=== PATIENT | female | born 1950 | race Caucasian/White ===

== ENCOUNTER 2023-11-30 05:39 | Inpatient (IN) | payer OTHER, SELFPAY ==
[2023-11-30] VITALS (13 sets, daily range): BP systolic 123–149; BP diastolic 63–84; BMI 38.7; BMI 38.1
[2023-11-30 01:56] LABS: COVID-19 Antigen Negative (Negative)
[2023-11-30] MEDS: TYLENOL 1000 MG PO (03:05)
[2023-11-30] MEDS: DUONEB 3 ML INH ×6 (03:05→19:33)
[2023-11-30] MEDS: NSS 1000 IV ×2 (03:06→07:58)
[2023-11-30 03:28] LABS: % Basophils 0.4 % (0-2); % Eosinophils 1.1 % (0-6); % Immature Granulocytes 0.6 % (0-0.5); % Lymphocytes 8.3 % (20.5-51.1); % Monocytes 5.1 % (1.7-9.3); % Neutrophils 84.5 % (42.2-75.2); Absolute Basophils 0.1 10^3/uL (0-0.2); Absolute Eosinophils 0.2 10^3/uL (0-0.7); Absolute Immature Granulocytes 0.1 10^3/uL (0-0.05); Absolute Lymphocytes 1.4 10^3/uL (1.2-3.4); Absolute Monocytes 0.8 10^3/uL (0.1-0.6); Absolute Neutrophils 13.7 10^3/uL (1.4-6.5); Hematocrit 31.2 % (37.0-47.0); Hemoglobin 10.4 g/dL (12.0-16.0); Mean Corp Hgb Conc. 33.3 g/dL (33.0-37.0); Mean Corpuscular Volume 83.9 fL (81.0-99.0); Mean Platelet Volume 9.9 fL (7.4-10.4); Nucleated Red Blood Cells % 0 %; Platelet Count 316 10^3/uL (130-400); Red Blood Cell Count 3.72 10^6/uL (4.20-5.40); Red Cell Dist. Width 13.4 % (11.5-14.5); White Blood Cell Count 16.2 10^3/uL (4.8-10.8)
[2023-11-30 03:36] LABS: Lactic Acid 0.8 mmol/L (0.7-2.0)
--- NOTE | 2023-11-30 03:41 | ED.GENMED ---
History of Present Illness
General
Chief Complaint: Breathing Problem
Source: patient
Exam Limitations: none
Time Seen by Provider: 11/30/23 02:48
Nursing documentation reviewed up to this point in time: agreed with
Travel History
Have you had any contact with someone who has COVID-19?: No
Do you have any symptoms of coronavirus? Fever > 100 degrees, chills, cough, shortness of breath, sore throat, loss of taste or smell, muscle aches, or headache?: No
History of Present Illness
History of Present Illness:
This is a 73-year-old woman who has history of asthma/chronic bronchitis. She follows with Dr. Hastings with last routine visit 1 week ago.
She does admit to somewhat mild chronic cough after suffering pneumonia and then COVID-19 URI July 2023.
More recently however over the past 2 days she complains of increased cough, nasal congestion, wheezing that has progressed over the past 2 days accompanied with low-grade fever, Tmax of 100 �F. Cough has been productive of clear phlegm but now
after arrival to the ED she has noticed some scant blood tingeing to her sputum.
She did use her nebulizer twice today with mild but temporary improvement in cough and shortness of breath but was noted to have a low pulse ox of 89% at home prompting ED visit.
No recent travel nor close contacts with similar symptoms.
No recent antibiotic use.
She takes no anticoagulants.
Past History
Past History
ED Past Medical History: Fibromyalgia, HTN and Other (Chronic back pains)
ED Past Surgical History: Gynecological, Orthopedic (Knee surgery) and Other (Kidney stones knee surgery.)
Social History
Tobacco: 2nd hand smoke exposure
Alcohol: None
Drug: None
Personal:
Living: with family (mom)
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
Phy Exam
Physical Exam
Physical Exam:
GENERAL: 73-year-old woman appears her stated age, awake and alert, appears in mild distress, mild resting tachypnea. Nasal cannula oxygen is in place. Room air pulse ox 89 to 90%. Blood-tinged pale yellow sputum noted on tissue at bedside.
EYE: anicteric
NECK: Supple, nontender, no meningismus, no significant adenopathy. No JVD.
ENT: posterior pharynx is clear, oral mucosa is minimally dry. TM clear b/l, nares patent.
CARDIAC: Regular rate and rhythm. no murmur.
LUNGS: Mild resting tachypnea, moderately decreased breath sounds throughout with scattered inspiratory/expiratory wheezing with coarse rhonchi left mid lung field.
ABDOMEN: Soft, nondistended, without focal tenderness, normoactive BS.
NEUROLOGICAL: Alert and oriented x3, no focal neuro deficits.
SKIN: Warm and dry, normal color, skin intact. No rash.
MUSCULOSKELETAL: No C/C/E. peripheral pulses are full and equal b/l. No palpable tenderness.
PSYCH: Normal and appropriate interaction.
Scores
Heart Failure Risk
Heart Failure Risk Score: Not Applicable
Course
Orders/Labs/Results
Orders:
Orders
11/30/23 01:33
COVID-19 Antigen Urgent
Source: Nasal Swab
Influenza A+B Rapid Molecular Urgent
SHAINA Source: Nasal Swab
Specimen Description:
11/30/23 02:56
Ipratropium/Albuterol Sulfate [Duoneb] 3 ml INH R NOW STA
CR Chest - 2 Views Urgent
Comment:
Reason For Exam: cough, fever,, hemoptysis
11/30/23 02:57
0.9% Sodium Chloride 1000 ml [Nss] 1,000 ml IV BOLUS
Acetaminophen [Tylenol] 1,000 mg PO NOW STA
11/30/23 03:04
Complete Blood Count/With Diff Urgent
Comprehensive Metabolic Panel Urgent
Lactic Acid Urgent
Blood Culture Q30M
SHAINA Source: Blood/Venous
Specimen Description:
11/30/23 03:22
Blood Culture Q30M
SHAINA Source: Blood/Venous
Specimen Description:
11/30/23 03:30
Sputum Culture [Respiratory Culture/Gram Stain] Urgent
SHAINA Source: Sputum
Specimen Description:
Date Specimen was Collected: 11/30/23
Time Specimen was Collected: 03:25
11/30/23 03:52
CefTRIAXone [Rocephin] 1,000 mg IV NOW STA
11/30/23 03:53
Azithromycin [Zithromax] 500 mg PO NOW STA
11/30/23 04:01
Dexamethasone Sod Phosphate [Decadron] 10 mg IV NOW STA
11/30/23 04:07
Sterile Water [Sterile Water For Injection] 10 ml .ROUTE .[facility]
11/30/23 04:34
Admit/Transfer Patient As Directed
Co-Sign Provider:
Level of Care: Inpatient admission
Assign to:: Telemetry
Physician / Group: Ada Dunn
Diagnosis: hypoxic resp insufficiency; pneumonia
Reason for Telemetry: Chest Pain syndromes
Date to Stop Telemetry: 12/02/23
Time to Stop Telemetry: 11:00
Reason for Hospitalization: hypoxic resp insufficiency; pneumonia
Expected length of stay greater than two midnights?: Yes
ELOS- Estimated Length of Stay in days: 3
I certify the patient meets the requirements for IP care: Yes
11/30/23 04:35
Code Status As Directed
Resuscitation Status: Full Code
11/30/23 05:43
Acapella [Rx Pep / Acapela] [RESP] Routine
11/30/23 05:50
0.9% Sodium Chloride 1000 ml [Nss] 1,000 ml IV 80 mls/hr
Acetaminophen [Tylenol] 650 mg PO Q4HPRN PRN
Ipratropium/Albuterol Sulfate [Duoneb] 3 ml INH R Q4HPRN PRN
11/30/23 05:50
Activity As Directed
Activity Level: As Tolerated
Intake/ Output As Directed
Frequency: Per unit guidelines
Vital Signs As Directed
Frequency: Per unit guidelines
Copd Education [RESP] Routine
DX Deep Vein Thrombosis Video Routine
11/30/23 Breakfast
Cholesterol Lowering
Cholesterol Lowering: Sodium, 2 Gram
11/30/23 08:00
Atorvastatin [Lipitor] 10 mg PO DAILY
Cholecalciferol (Vitamin D3) [VITAMIN D3 (cholecalciferol)] 10 mcg PO DAILY
Guaifenesin [Mucinex] 600 mg PO Q12
Ipratropium/Albuterol Sulfate [Duoneb] 3 ml INH R QID
Montelukast Sodium [Singulair] 10 mg PO DAILY
Multivitamin [Theragran] 1 tablet PO DAILY
Pantoprazole [Protonix] 40 mg PO DAILY
Sertraline HCl [Zoloft] 50 mg PO DAILY
rscwgrgfvrs-rqejccvwq-zdcwocko [Trelegy Ellipta] 1 inh INH R DAILY
11/30/23 16:00
Dexamethasone Sod Phosphate [Decadron] 4 mg IV Q8H
11/30/23 18:00
Enoxaparin Sodium [Lovenox] 40 mg SC QPM
12/01/23 04:00
CefTRIAXone [Rocephin] 1,000 mg IV Q24H
12/01/23 08:00
Azithromycin [Zithromax] 500 mg PO DAILY
12/02/23 11:00
DC Protocol for Telemetry ONCE
Abnormal Lab Results
11/30/23
03:04
WBC 16.2 H 10^3/uL
(4.8-10.8)
RBC 3.72 L 10^6/uL
(4.20-5.40)
Hgb 10.4 L g/dL
(12.0-16.0)
Hct 31.2 L %
(37.0-47.0)
Abs Immat Gran (auto) 0.1 H 10^3/uL
(0-0.05)
Absolute Neuts (auto) 13.7 H 10^3/uL
(1.4-6.5)
Absolute Monos (auto) 0.8 H 10^3/uL
(0.1-0.6)
Immature Gran % 0.6 H %
(0-0.5)
Neutrophils % 84.5 H %
(42.2-75.2)
Lymphocytes % 8.3 L %
(20.5-51.1)
Glucose 128 H mg/dl
(70-99)
Total Protein 5.8 L g/dl
(6.3-8.2)
Albumin 3.2 L g/dl
(3.5-5.0)
11/30/23 03:04
11/30/23 03:04
Vital Signs
Initial and Last Documented VS:
Initial Vital Signs
Temp Pulse Resp BP Pulse Ox
100.4 F H 103 26 149/83 90
11/30/23 00:59 11/30/23 00:59 11/30/23 00:59 11/30/23 00:59 11/30/23 00:59
Last Documented Vital Signs
Temp Pulse Resp BP Pulse Ox
98.4 F 77 26 133/66 92
11/30/23 06:39 11/30/23 05:45 11/30/23 05:45 11/30/23 05:20 11/30/23 05:45
MDM/Problems Addressed
Differential Diagnosis Includes:
Concern for pneumonia, exacerbation of asthma.
No prior history of cardiomyopathy nor CAD and as patient is febrile, CHF is unlikely.
Similarly, no prior history of thromboembolism thus PE is unlikely as well.
Physical exam concerning for pneumonia with moderate rhonchi left mid lung moreira.
Will give DuoNeb nebulizer, initiate IV fluids and check chest x-ray as well as laboratory studies.
Will give Tylenol for fever.
COVID antigen and influenza testing are negative.
She is noted to have scantly blood-tinged sputum in the tissue at bedside. She has been given a specimen cup for sputum sample and if obtained we will send for respiratory culture.
Chronic conditions affecting care: Asthma
Acute Exacerbation and/or Progression of Chronic Illness: Asthma
*Radiology
Radiology exam reviewed: preliminary read by ED provider (Chest x-ray shows patchy infiltrate left midlung field)
*Pulse Oximetry
Patient hypoxic: yes
*Crochet Beader Interpretation
Rate: normal
Interpretation: normal
Rhythm: sinus
*Critical Care Note
Total Time (30-74mins, 75-104mins- exclusive of procedures): Not Applicable
Update Note
Update Note:
Chest x-ray shows patchy infiltrate left midlung field consistent with community-acquired pneumonia.
Will initiate Rocephin and Zithromax and add Decadron for exacerbation of asthma/wheezing.
Due to acute hypoxia, hemoptysis patient will require acute hospitalization.
Will admit to hospitalist service.
ED Attending Note
-
Portions of this chart may have been created with voice recognition software.� Occasional wrong word or��sound alike� substitutions may have occurred due to the inherent limitations of voice recognition software.
Discharge Plan
Departure
Patient Disposition: Admit
Date of Disposition: 11/30/23
Time of Disposition: 03:53
Admit to: Med/Surg
Admit to doctor: Shaun
Presentation/result/management discussed w/ accepting MD/DO: Hospitalist
Condition: Fair
Discharge Problem:
Community acquired pneumonia, Acute exacerbation of COPD with asthma, Acute hypoxemic respiratory failure
Interventions
Interventions:
*Risk Screen - Suicide Last Done: 11/30/23 01:58
*General Assessment Last Done: 11/30/23 01:58
*Neglect/Abuse Screening Last Done: 11/30/23 01:58
*ED COVID-19 Vaccine History Last Done: 11/30/23 01:58
ED- Cardiac Assessment Last Done: 11/30/23 01:58
ED- Pulmonary Assessment Last Done: 11/30/23 01:58
[2023-11-30 03:48] LABS: ALT (SGPT) 16 U/L (0-35); AST (SGOT) 21 U/L (14-36); Albumin 3.2 g/dl (3.5-5.0); Alkaline Phosphatase 82 U/L (38-126); Blood Urea Nitrogen 15 mg/dl (7-17); Calcium 9.3 mg/dl (8.4-10.2); Carbon Dioxide 29 mmol/L (22-30); Chloride 100 mmol/L (98-107); Estimated Creatinine Clearance 92 ml/min; Glucose 128 mg/dl (70-99); Potassium 3.5 mmol/L (3.5-5.1); Sodium 137 mmol/L (135-145); Total Bilirubin 0.8 mg/dl (0.2-1.3); Total Protein 5.8 g/dl (6.3-8.2); eGFR > 60.00
--- NOTE | 2023-11-30 04:11 | HPS.HSE ---
Family Physician
-
Family Physician: ALTAGRACIA Cope
Chief Complaint
-
cough and fever
History of Present Illness
Ms. Fide Becerra is a 73 yo woman with hx hx asthma, fibromyalgai, HTN, chronic cough post covid 08/07 presents to the ER with increased cough, congestion and wheezing. She measured her pulse ox at 89% at home.
She states symptoms started 2 days ago, she woke up wheezing and short of breath, + chest tightness. She has had low grade fevers, temp measuring between 100-101. + cough and noticed blood tinged sputum today. She just saw her md psychiatry,
Macario, last week and was feeling well. no abdominal pain. + nausea. mild LE swelling she noticed today.
Nebulizers at home and here not providing signficant relief.
Medical History
Past Medical History
Past Medical History: Reports Other (asthma, fibromyalgia, HTN, chronic cough post covid 08/07)
Past Surgical History: Reports Other (Gynecological, Orthopedic (Knee surgery) and Other (Kidney stones knee surgery.))
Social History
Tobacco: Other (second hand smoke exposure )
Alcohol: None
Family History
Family History: Not pertinent
Allergies / Home Medications
Allergies reflects when Allergies were last updated in [employer].
Home Medications with original date entered in [employer]
Allergy/Medication List:
Allergies
Allergy/AdvReac Type Severity Reaction Status Date / Time
Penicillins Allergy Hives Verified 11/30/23 00:58
Sulfa (Sulfonamide Allergy Swelling Verified 11/30/23 00:58
Antibiotics)
gatinol Allergy Unknown Uncoded 11/30/23 00:58
Home Medications
multivitamin (Xdn-Jvcccp-Dxbhi tablet) 1 ea PO DAILY 09/20/11
cholecalciferol (vitamin D3) 10 mcg (400 unit) tablet (Vitamin D3) 1,000 units PO DAILY 06/09/18
magnesium oxide 500 mg capsule 500 mg PO .EOD 06/09/18
albuterol sulfate 90 mcg/actuation aerosol inhaler (Albuterol Sulfate HFA) 18 gm inhalation Q4 ##1 06/10/18
diphenhydramine HCl 25 mg capsule (Banophen) 25 mg PO Q4HPRN PRN rash, itching #10 caps 06/10/18
Arnuity Ellipta 1 puff inhalation DAILY AT 0700 11/30/23
atorvastatin 10 mg tablet 10 mg PO DAILY 11/30/23
fluticasone fur. 100 mcg-umeclid 62.5 mcg-vilant 25 mcg inhalat.powder (Trelegy Ellipta) 1 inh inhalation DAILY 11/30/23
montelukast 10 mg tablet 10 mg PO DAILY 11/30/23
pantoprazole 40 mg tablet,delayed release 40 mg PO DAILY 11/30/23
sertraline 50 mg tablet 50 mg PO DAILY 11/30/23
Review of Systems
-
History Source: Patient
A 12 point ROS was completed and negative except as noted: Yes
Physical Exam
Vital Signs
Vital Signs
Temp Pulse Resp BP Pulse Ox
99.6 F 103 26 123/81 96
11/30/23 03:30 11/30/23 00:59 11/30/23 00:59 11/30/23 03:00 11/30/23 03:30
Physical Exam
General: Other (appears tachypneic, + frequent cough )
HEENT: PERRLA
Respiratory: Wheezes
Cardiac: S1/S2 and Regular Rhythm
GI: Soft and Non Tender
Musculoskeletal: Other (trace pedal edema )
Skin: Warm and Dry; No Rash
Neuro: AO x 3
Psych: Anxious
Laboratory Results
-
11/30/23 03:04
11/30/23 03:04
Laboratory Results
Lactic Acid 0.8 mmol/L (0.7-2.0) 11/30/23 03:04
Total Bilirubin 0.8 mg/dl (0.2-1.3) 11/30/23 03:04
AST 21 U/L (14-36) 11/30/23 03:04
ALT 16 U/L (0-35) 11/30/23 03:04
Alkaline Phosphatase 82 U/L (38-126) 11/30/23 03:04
Data Reviewed
-
Diagnostic Radiology: Report Reviewed by me
Lab Data: Labs Reviewed by me
Impression/Plan
-
Ms. Fide Becerra is a 73 yo woman with hx asthma, fibromyalgia, HTN, chronic cough post covid 08/07 presents to the ER with increased cough, congestion and wheezing. She measured her pulse ox at 89% at home.
Triage VS: T 100.4, P 103, RR 26, BP 141/76, SpO2 91%
LAB: WBC 16.2, Hg 10.4, PLT 316, Na 137, K+ 3.5, BUN 15, Cr 0.6, Glucose 128
covid negative
flu negative
CXR with [facility] PNA
MAR: Cef/Azithro
Sepsis 2/2 Pneumonia
Acute asthma exacerbation
Acute hypoxic respiratory insufficiency
-admit to tele
-continue IV Ceftriaxone/Azithro
-F/U sputum culture
-IV Decadron
-standing duonebs
-mucinex, acapella
-consider pulm consult if no improvement 24/48 hours (patient sees Dr. Sorto)
-continue RESIDENTIAL PLUMBER montelukast, inhalers
GERD
-RESIDENTIAL PLUMBER PPI
Depression
-RESIDENTIAL PLUMBER Zoloft
DVT PPx lovenox subQ
FULL CODE
[2023-11-30] MEDS: ZITHROMAX 500 MG PO (04:14)
[2023-11-30] MEDS: ROCEPHIN 1000 MG IV (04:14)
[2023-11-30] MEDS: DECADRON 10 MG IV (04:14)
[2023-11-30 09:00] LABS: Procalcitonin 4.27 ng/ml (0.0-0.25)
--- NOTE | 2023-11-30 09:00 | EDRN ---
Patient taken to room 333-1 on stretcher on O2 4LNC by pharmacy technician with NSS infusing.
[2023-11-30] MEDS: THERAGRAN 1 TABLET PO (10:13)
[2023-11-30] MEDS: LIPITOR 10 MG PO (10:13)
[2023-11-30] MEDS: VITAMIN D3 (cholecalciferol) 10 MCG PO (10:13)
[2023-11-30] MEDS: MUCINEX 600 MG PO ×2 (10:13→20:52)
[2023-11-30] MEDS: PROTONIX 40 MG PO (10:13)
[2023-11-30] MEDS: SINGULAIR 10 MG PO (10:14)
[2023-11-30] MEDS: ZOLOFT 50 MG PO (10:23)
[2023-11-30] MEDS: FLOVENT 44 MCG INHALER 2 PUFF INH ×2 (13:17→19:33)
--- NOTE | 2023-11-30 13:55 | W.PN.HOSP.TC ---
Today's Communication/Plan
-
abx
incentive shavon
steroids
Assessment / Plan
Assessment / Plan
Physical Exam
General: Other (appears tachypneic, + frequent cough )
HEENT: PERRLA
Respiratory: Wheezes
Cardiac: S1/S2 and Regular Rhythm
GI: Soft and Non Tender
Musculoskeletal: Other (trace pedal edema )
Skin: Warm and Dry; No Rash
Neuro: AO x 3
Psych: Anxious
Sepsis 2/2 Pneumonia
Acute asthma exacerbation
Acute hypoxic respiratory insufficiency
-continue IV Ceftriaxone/Azithro
-F/U sputum culture
-IV Decadron
-standing duonebs
-mucinex, acapella
-consider pulm consult if no improvement 24/48 hours (patient sees Dr. Sorto)
-continue TECHNICAL SYSTEM ANALYST montelukast, inhalers
GERD
-TECHNICAL SYSTEM ANALYST PPI
Depression
-TECHNICAL SYSTEM ANALYST Zoloft
DVT PPx lovenox subQ
FULL CODE
Anticipated Discharge: 24 - 48 hours
Subjective/Interval History
-
Date of Service: November 30, 2023
No acute events
Objective Data
-
Labs:
Laboratory Results
11/30/23 11/30/23
03:04 06:00
WBC 16.2 H Cancelled
Hgb 10.4 L Cancelled
Hct 31.2 L Cancelled
Plt Count 316 Cancelled
Sodium 137 Cancelled
Potassium 3.5 Cancelled
Chloride 100 Cancelled
Carbon Dioxide 29 Cancelled
BUN 15 Cancelled
Creatinine 0.6 Cancelled
Glucose 128 H Cancelled
Calcium 9.3 Cancelled
Total Bilirubin 0.8
AST 21
ALT 16
Alkaline Phosphatase 82
Vital Signs:
Vital Signs
Temp Pulse Resp BP Pulse Ox
98.2 F 82 16 148/81 95
11/30/23 09:14 11/30/23 13:22 11/30/23 13:22 11/30/23 09:14 11/30/23 13:22
I&O
11/29/23 11/30/23 12/01/23
06:59 06:59 06:59
Intake Total 260 / 260
Balance 260 / 260
Review of Systems
-
History Source: Patient
All other systems: Not reviewed unless documented
Data Reviewed
-
Diagnostic Radiology: Image personally visualized and interpreted and Report Reviewed by me
Labs: Labs Reviewed by me
[2023-11-30] MEDS: TESSALON PERLES 200 MG PO (14:12)
--- NOTE | 2023-11-30 15:38 | CM ---
Met with patient and son at the bedside; initial assessment completed
Pharmacy verified: [facility], [address], [place]
Patient reports she is currently living with her son, Kaushik; 3 story home including basement; 2 steps to enter; 12 step between floors; powder room on the 1st floor and in the finished basement where patient sleeps; 2nd floor bathroom has a shower
stall
PLOF: patient reports she is independent with ADLs, ambulation, and stairs; drives but has not driven recently
DME: none
SNF/Rehab/Home Care utilization history: none
Transportation: one of her sons will provide ride home
Plan: discharge to home; no needs anticipated
[2023-11-30] MEDS: LOVENOX SC (18:26)
[2023-11-30] MEDS: DECADRON 4 MG IV (19:33)
[2023-12-01] MEDS: TESSALON PERLES 200 MG PO ×3 (00:09→20:55)
[2023-12-01] MEDS: DUONEB 3 ML INH ×5 (00:23→20:35)
[2023-12-01] MEDS: DECADRON 4 MG IV ×3 (02:47→16:58)
[2023-12-01 02:49] VITALS: BP 138/67
[2023-12-01] MEDS: STERILE WATER FOR INJECTION 10 ML IV (04:12)
[2023-12-01] MEDS: ROCEPHIN 1000 MG IV (04:12)
[2023-12-01 06:15] LABS: % Basophils 0.1 % (0-2); % Immature Granulocytes 0.6 % (0-0.5); % Lymphocytes 5.2 % (20.5-51.1); % Monocytes 2.2 % (1.7-9.3); % Neutrophils 91.9 % (42.2-75.2); Absolute Immature Granulocytes 0.1 10^3/uL (0-0.05); Absolute Lymphocytes 0.6 10^3/uL (1.2-3.4); Absolute Monocytes 0.3 10^3/uL (0.1-0.6); Absolute Neutrophils 11.4 10^3/uL (1.4-6.5); Hemoglobin 10.5 g/dL (12.0-16.0); Mean Corp Hgb Conc. 32.8 g/dL (33.0-37.0); Mean Corpuscular Hgb 28.1 pg (27.0-31.0); Mean Corpuscular Volume 85.6 fL (81.0-99.0); Mean Platelet Volume 10.1 fL (7.4-10.4); Nucleated Red Blood Cells % 0 %; Platelet Count 354 10^3/uL (130-400); Red Blood Cell Count 3.74 10^6/uL (4.20-5.40); Red Cell Dist. Width 13.5 % (11.5-14.5); White Blood Cell Count 12.4 10^3/uL (4.8-10.8)
[2023-12-01 06:37] LABS: Blood Urea Nitrogen 16 mg/dl (7-17); Calcium 9.7 mg/dl (8.4-10.2); Carbon Dioxide 26 mmol/L (22-30); Chloride 100 mmol/L (98-107); Estimated Creatinine Clearance 91 ml/min; Glucose 146 mg/dl (70-99); Potassium 4.3 mmol/L (3.5-5.1); Sodium 136 mmol/L (135-145); eGFR > 60.00
[2023-12-01 07:00] VITALS: BP 142/79
[2023-12-01] MEDS: FLOVENT 44 MCG INHALER 2 PUFF INH ×2 (07:40→20:36)
[2023-12-01] MEDS: THERAGRAN 1 TABLET PO (08:16)
[2023-12-01] MEDS: ZOLOFT 50 MG PO (08:16)
[2023-12-01] MEDS: PROTONIX 40 MG PO (08:16)
[2023-12-01] MEDS: VITAMIN D3 (cholecalciferol) 10 MCG PO (08:16)
[2023-12-01] MEDS: ZITHROMAX 500 MG PO (08:16)
[2023-12-01] MEDS: SINGULAIR 10 MG PO (08:16)
[2023-12-01] MEDS: MUCINEX 600 MG PO ×2 (08:16→20:55)
[2023-12-01] MEDS: LIPITOR 10 MG PO (08:16)
[2023-12-01] MEDS: TYLENOL 650 MG PO ×3 (10:19→21:51)
[2023-12-01 11:00] VITALS: BP 131/70
--- NOTE | 2023-12-01 12:57 | W.PN.HOSP.TC ---
Today's Communication/Plan
-
wean o2
abx
steroids
acapella, incentive shavon, early ambulation
Assessment / Plan
Assessment / Plan
Physical Exam
General: Other (mild expiratory wheezing)
HEENT: PERRLA
Respiratory: Wheezes
Cardiac: S1/S2 and Regular Rhythm
GI: Soft and Non Tender
Musculoskeletal: Other (trace pedal edema )
Skin: Warm and Dry; No Rash
Neuro: AO x 3
Psych: Anxious
Sepsis 2/2 Pneumonia
Acute asthma exacerbation
Acute hypoxic respiratory failure
-improving
-continue IV Ceftriaxone/Azithro
-F/U sputum culture
-IV Decadron
-standing duonebs
-mucinex, acapella, incentive shavon
-continue COMMAND AND CONTROL OFFICER montelukast, inhalers
GERD
-COMMAND AND CONTROL OFFICER PPI
Depression
-COMMAND AND CONTROL OFFICER Zoloft
DVT PPx lovenox subQ
FULL CODE
Anticipated Discharge: > 48 hours
Subjective/Interval History
-
Date of Service: December 01, 2023
Patient feels better compared to yesterday
Objective Data
-
Labs:
Laboratory Results
12/01/23
05:36
WBC 12.4 H
Hgb 10.5 L
Hct 32.0 L
Plt Count 354
Sodium 136
Potassium 4.3
Chloride 100
Carbon Dioxide 26
BUN 16
Creatinine 0.6
Glucose 146 H
Calcium 9.7
Vital Signs:
Vital Signs
Temp Pulse Resp BP Pulse Ox
97.9 F 74 16 131/70 93
12/01/23 11:00 12/01/23 11:50 12/01/23 11:50 12/01/23 11:00 12/01/23 11:50
I&O
11/30/23 12/01/23 12/02/23
06:59 06:59 06:59
Intake Total 2339
Balance 2339
Review of Systems
-
History Source: Patient
All other systems: Not reviewed unless documented
Data Reviewed
-
Diagnostic Radiology: Image personally visualized and interpreted and Report Reviewed by me
Labs: Labs Reviewed by me
[2023-12-01 15:00] VITALS: BP 138/80
--- NOTE | 2023-12-01 15:43 | CM ---
Chart reviewed
Weaning O2, IV steroids and on antibiotics
PT pending
CM following for needs
Plan - Home to previous setting
[2023-12-01] MEDS: LOVENOX 40 MG SC (17:01)
[2023-12-01 19:10] VITALS: BP 132/70
[2023-12-01 23:20] VITALS: BP 134/71
[2023-12-02] MEDS: DECADRON 4 MG IV ×4 (01:08→23:44)
[2023-12-02 03:04] VITALS: BP 147/85
[2023-12-02] MEDS: ROCEPHIN 1000 MG IV (04:52)
[2023-12-02] MEDS: STERILE WATER FOR INJECTION 10 ML IV (04:52)
[2023-12-02 07:43] VITALS: BP 147/80
[2023-12-02] MEDS: ZITHROMAX 500 MG PO (07:46)
[2023-12-02] MEDS: SINGULAIR 10 MG PO (07:47)
[2023-12-02] MEDS: PROTONIX 40 MG PO (07:47)
[2023-12-02] MEDS: MUCINEX 600 MG PO ×2 (07:47→19:21)
[2023-12-02] MEDS: LIPITOR 10 MG PO (07:47)
[2023-12-02] MEDS: VITAMIN D3 (cholecalciferol) 10 MCG PO (07:47)
[2023-12-02] MEDS: THERAGRAN 1 TABLET PO (07:47)
[2023-12-02] MEDS: ZOLOFT 50 MG PO (07:47)
[2023-12-02 08:24] LABS: Hematocrit 31.6 % (37.0-47.0); Hemoglobin 10.2 g/dL (12.0-16.0); Mean Corp Hgb Conc. 32.3 g/dL (33.0-37.0); Mean Corpuscular Hgb 27.6 pg (27.0-31.0); Mean Corpuscular Volume 85.4 fL (81.0-99.0); Platelet Count 401 10^3/uL (130-400); Red Cell Dist. Width 13.6 % (11.5-14.5); White Blood Cell Count 11.3 10^3/uL (4.8-10.8)
[2023-12-02 08:34] LABS: Blood Urea Nitrogen 26 mg/dl (7-17); Calcium 9.2 mg/dl (8.4-10.2); Carbon Dioxide 26 mmol/L (22-30); Chloride 101 mmol/L (98-107); Estimated Creatinine Clearance 78 ml/min; Glucose 126 mg/dl (70-99); Potassium 4.6 mmol/L (3.5-5.1); Sodium 134 mmol/L (135-145); eGFR > 60.00
[2023-12-02] MEDS: FLOVENT 44 MCG INHALER 2 PUFF INH ×2 (08:39→19:58)
[2023-12-02] MEDS: DUONEB 3 ML INH ×4 (08:39→19:58)
[2023-12-02 11:35] VITALS: BP 136/74
[2023-12-02 11:57] VITALS: BP 148/73
[2023-12-02] MEDS: TESSALON PERLES 200 MG PO ×2 (13:44→19:21)
[2023-12-02] MEDS: TYLENOL 650 MG PO ×2 (13:44→19:21)
--- NOTE | 2023-12-02 13:49 | W.PN.HOSP.TC ---
Today's Communication/Plan
-
wean o2
abx
steroids
acapella, incentive shavon, early ambulation
Assessment / Plan
Assessment / Plan
Physical Exam
General: Other (mild expiratory wheezing)
HEENT: PERRLA
Respiratory: Wheezes
Cardiac: S1/S2 and Regular Rhythm
GI: Soft and Non Tender
Musculoskeletal: Other (trace pedal edema )
Skin: Warm and Dry; No Rash
Neuro: AO x 3
Psych: Anxious
Sepsis 2/2 Pneumonia
Acute asthma exacerbation
Acute hypoxic respiratory failure
-improving
-continue IV Ceftriaxone/Azithro
-F/U sputum culture
-IV Decadron, anticipate starting to wean tomorrow
-standing duonebs
-mucinex, acapella, incentive shavon
-continue PATIENT RESOURCE SPECIALIST montelukast, inhalers
Hyponatremia
� Mild
� Continue to monitor
GERD
-PATIENT RESOURCE SPECIALIST PPI
Depression
-PATIENT RESOURCE SPECIALIST Zoloft
DVT PPx lovenox subQ
FULL CODE
Anticipated Discharge: > 48 hours
Subjective/Interval History
-
Date of Service: December 02, 2023
Symptomatically improving
Objective Data
-
Labs:
Laboratory Results
12/02/23
07:12
WBC 11.3 H
Hgb 10.2 L
Hct 31.6 L
Plt Count 401 H
Sodium 134 L
Potassium 4.6
Chloride 101
Carbon Dioxide 26
BUN 26 H
Creatinine 0.7
Glucose 126 H
Calcium 9.2
Vital Signs:
Vital Signs
Temp Pulse Resp BP Pulse Ox
97.4 F 72 18 148/73 92
12/02/23 11:57 12/02/23 12:04 12/02/23 12:04 12/02/23 11:57 12/02/23 12:04
I&O
12/01/23 12/02/23 12/03/23
06:59 06:59 06:59
Intake Total 2340 / 2340 1000 / 1000
Balance 2340 / 2340 1000 / 1000
Review of Systems
-
History Source: Patient
All other systems: Not reviewed unless documented
Data Reviewed
-
Diagnostic Radiology: Image personally visualized and interpreted and Report Reviewed by me
Labs: Labs Reviewed by me
[2023-12-02 15:45] VITALS: BP 125/74
[2023-12-02] MEDS: LOVENOX 40 MG SC (17:53)
[2023-12-02 23:35] VITALS: BP 136/74
[2023-12-03 00:05] VITALS: BP 136/74
[2023-12-03] MEDS: DUONEB 3 ML INH ×5 (00:46→19:44)
[2023-12-03] MEDS: ROBITUSSIN DM PO (02:03)
[2023-12-03] MEDS: MELATONIN 5 MG PO (02:04)
[2023-12-03] MEDS: ROBITUSSIN DM 10 ML PO (02:29)
[2023-12-03] MEDS: ROCEPHIN 1000 MG IV (04:06)
[2023-12-03] MEDS: STERILE WATER FOR INJECTION 10 ML IV (04:07)
[2023-12-03] MEDS: PROTONIX 40 MG PO (07:42)
[2023-12-03] MEDS: VITAMIN D3 (cholecalciferol) 10 MCG PO (07:42)
[2023-12-03] MEDS: ZOLOFT 50 MG PO (07:42)
[2023-12-03] MEDS: LIPITOR 10 MG PO (07:42)
[2023-12-03] MEDS: SINGULAIR 10 MG PO (07:42)
[2023-12-03] MEDS: THERAGRAN 1 TABLET PO (07:42)
[2023-12-03] MEDS: ZITHROMAX 500 MG PO (07:43)
[2023-12-03] MEDS: MUCINEX 600 MG PO ×2 (07:43→20:42)
[2023-12-03] MEDS: DECADRON 4 MG IV ×2 (07:43→20:42)
[2023-12-03 07:46] LABS: Hematocrit 33.5 % (37.0-47.0); Hemoglobin 10.9 g/dL (12.0-16.0); Mean Corp Hgb Conc. 32.5 g/dL (33.0-37.0); Mean Corpuscular Hgb 27.6 pg (27.0-31.0); Mean Corpuscular Volume 84.8 fL (81.0-99.0); Mean Platelet Volume 9.6 fL (7.4-10.4); Platelet Count 420 10^3/uL (130-400); Red Blood Cell Count 3.95 10^6/uL (4.20-5.40); Red Cell Dist. Width 13.3 % (11.5-14.5); White Blood Cell Count 9.6 10^3/uL (4.8-10.8)
[2023-12-03 07:49] VITALS: BP 132/69
[2023-12-03 08:00] LABS: Blood Urea Nitrogen 23 mg/dl (7-17); Calcium 9.7 mg/dl (8.4-10.2); Carbon Dioxide 27 mmol/L (22-30); Chloride 100 mmol/L (98-107); Estimated Creatinine Clearance 78 ml/min; Glucose 122 mg/dl (70-99); Phosphorus 5.2 mg/dl (2.5-4.5); Potassium 4.6 mmol/L (3.5-5.1); Sodium 137 mmol/L (135-145); eGFR > 60.00
[2023-12-03] MEDS: FLOVENT 44 MCG INHALER 2 PUFF INH ×2 (08:08→19:45)
--- NOTE | 2023-12-03 13:07 | W.PN.HOSP.TC ---
Today's Communication/Plan
-
cont abx
wean decadron to 4mg q12h
wean o2
Assessment / Plan
Assessment / Plan
Physical Exam
General: Other (mild expiratory wheezing)
HEENT: PERRLA
Respiratory: Wheezes
Cardiac: S1/S2 and Regular Rhythm
GI: Soft and Non Tender
Musculoskeletal: Other (trace pedal edema )
Skin: Warm and Dry; No Rash
Neuro: AO x 3
Psych: Anxious
Sepsis 2/2 Pneumonia
Acute asthma exacerbation
Acute hypoxic respiratory failure
-improving
-continue IV Ceftriaxone/Azithro - can cont azithro x 5 days; ceftriaxone and po abx transition for 7-10 days as slowly recovering
-F/U sputum culture
-IV Decadron, wean to 4mg q12h
-standing duonebs
-mucinex, acapella, incentive shavon
-continue MUCKER COFFERDAM montelukast, inhalers
Hyponatremia
� Mild
� Continue to monitor
-resolved
GERD
-MUCKER COFFERDAM PPI
Depression
-MUCKER COFFERDAM Zoloft
DVT PPx lovenox subQ
FULL CODE
Anticipated Discharge: > 48 hours
Subjective/Interval History
-
Date of Service: December 03, 2023
no acute events overnight
Objective Data
-
Labs:
Laboratory Results
12/03/23
06:33
WBC 9.6
Hgb 10.9 L
Hct 33.5 L
Plt Count 420 H
Sodium 137
Potassium 4.6
Chloride 100
Carbon Dioxide 27
BUN 23 H
Creatinine 0.7
Glucose 122 H
Calcium 9.7
Vital Signs:
Vital Signs
Temp Pulse Resp BP Pulse Ox
98.8 F 93 18 132/69 93
12/03/23 07:49 12/03/23 11:35 12/03/23 11:35 12/03/23 07:49 12/03/23 11:35
I&O
12/02/23 12/03/23 12/04/23
06:59 06:59 06:59
Intake Total 1000 / 1000 920 / 920
Balance 1000 / 1000 920 / 920
Review of Systems
-
History Source: Patient
All other systems: Not reviewed unless documented
Data Reviewed
-
Diagnostic Radiology: Image personally visualized and interpreted and Report Reviewed by me
Labs: Labs Reviewed by me
[2023-12-03] MEDS: TYLENOL 650 MG PO (14:08)
[2023-12-03 15:14] VITALS: BP 112/61
[2023-12-03] MEDS: LOVENOX 40 MG SC (17:12)
[2023-12-03] MEDS: TESSALON PERLES 200 MG PO (17:15)
[2023-12-03] MEDS: ROBITUSSIN DM 5 ML PO (20:51)
[2023-12-03 23:21] VITALS: BP 134/71
[2023-12-04] MEDS: ROCEPHIN 1000 MG IV (03:27)
[2023-12-04] MEDS: STERILE WATER FOR INJECTION 10 ML IV (03:27)
[2023-12-04] MEDS: ROBITUSSIN DM 5 ML PO ×3 (03:34→23:18)
[2023-12-04 06:11] LABS: Hematocrit 34.3 % (37.0-47.0); Hemoglobin 11.1 g/dL (12.0-16.0); Mean Corp Hgb Conc. 32.4 g/dL (33.0-37.0); Mean Corpuscular Volume 86.4 fL (81.0-99.0); Mean Platelet Volume 9.5 fL (7.4-10.4); Platelet Count 416 10^3/uL (130-400); Red Blood Cell Count 3.97 10^6/uL (4.20-5.40); Red Cell Dist. Width 13.2 % (11.5-14.5); White Blood Cell Count 12.5 10^3/uL (4.8-10.8)
[2023-12-04 06:38] LABS: Blood Urea Nitrogen 25 mg/dl (7-17); Calcium 9.5 mg/dl (8.4-10.2); Carbon Dioxide 28 mmol/L (22-30); Chloride 97 mmol/L (98-107); Estimated Creatinine Clearance 68 ml/min; Glucose 116 mg/dl (70-99); Potassium 4.8 mmol/L (3.5-5.1); Sodium 134 mmol/L (135-145); eGFR > 60.00
[2023-12-04 07:50] VITALS: BP 126/87
[2023-12-04] MEDS: ZITHROMAX 500 MG PO (08:09)
[2023-12-04] MEDS: PROTONIX 40 MG PO (08:09)
[2023-12-04] MEDS: THERAGRAN 1 TABLET PO (08:09)
[2023-12-04] MEDS: ZOLOFT 50 MG PO (08:09)
[2023-12-04] MEDS: VITAMIN D3 (cholecalciferol) 10 MCG PO (08:09)
[2023-12-04] MEDS: LIPITOR 10 MG PO (08:09)
[2023-12-04] MEDS: SINGULAIR 10 MG PO (08:09)
[2023-12-04] MEDS: MUCINEX 600 MG PO ×2 (08:09→20:08)
[2023-12-04] MEDS: DECADRON 4 MG IV ×2 (08:10→20:09)
[2023-12-04] MEDS: FLUSH (NSS) 2 FLUSH IV (08:12)
[2023-12-04] MEDS: DUONEB 3 ML INH ×4 (08:12→19:37)
[2023-12-04] MEDS: FLOVENT 44 MCG INHALER 2 PUFF INH ×2 (08:12→19:37)
--- NOTE | 2023-12-04 10:42 | W.PN.HOSP.TC ---
Today's Communication/Plan
-
see A/P
Assessment / Plan
Assessment / Plan
A/P:
# Sepsis POA 2/2 CAP
# Acute asthma exacerbation
# Acute hypoxic respiratory insufficiency
Cont 2L NC, wean as tolerated, pt not on home O2
COVID/Flu negative
continue IV Ceftriaxone/Azithro
sputum culture with usual respiratory evelio
Cont IV Decadron, weaned to 4mg q12h
Cont standing duonebs, mucinex, acapella, incentive shavon
continue BURN CENTER NURSE montelukast, inhalers
Start vest therapy
Informed pt to repeat CXR in 4 weeks with pulm (pt follows with Dr Sorto)
Clinically improving
# Hyponatremia, Mild
# GERD
BURN CENTER NURSE PPI
# Depression
BURN CENTER NURSE Zoloft
DVT PPx Lovenox subQ
FULL CODE
Anticipated Discharge: 24 - 48 hours
Subjective/Interval History
-
Date of Service: December 04, 2023
Objective Data
-
Labs:
Laboratory Results
12/04/23
05:27
WBC 12.5 H
Hgb 11.1 L
Hct 34.3 L
Plt Count 416 H
Sodium 134 L
Potassium 4.8
Chloride 97 L
Carbon Dioxide 28
BUN 25 H
Creatinine 0.8
Glucose 116 H
Calcium 9.5
Vital Signs:
Vital Signs
Temp Pulse Resp BP Pulse Ox
36.6 C 60 16 126/87 95
12/04/23 07:50 12/04/23 08:17 12/04/23 08:17 12/04/23 07:50 12/04/23 08:17
I&O
12/03/23 12/04/23 12/05/23
06:59 06:59 06:59
Intake Total 920 / 920 1380 / 1380
Balance 920 / 920 1380 / 1380
Review of Systems
-
Respiratory: Reports Trouble Breathing (improved)
Physical Exam
-
General: Well Developed, Well Nourished, Comfortable, Respiratory Distress and Conversant
HEENT: Normocephalic, Atraumatic, Nose Appears Normal, Ears Appear Normal and Oxygen (2L NC)
Respiratory: Clear to Auscultation, Rhonchi and Non Labored Respirations; Negative Accessory Resp Muscle Use
Cardiac: Regular Rhythm and S1/S2
GI: Soft, Nontender, Nondistended and Normal Bowel Sounds
Skin: Warm and Dry
Neuro: Awake, Alert, Oriented and AO x 3
Psych: Calm and Intact Judgement/Insight
Data Reviewed
-
Diagnostic Radiology: Image personally visualized and interpreted and Report Reviewed by me
Labs: Labs Reviewed by me
[2023-12-04] MEDS: TYLENOL 650 MG PO ×2 (10:44→20:08)
[2023-12-04 16:25] VITALS: BP 133/75
--- NOTE | 2023-12-04 16:45 | CM ---
Chart reviewed
Continuing abx; Weaning Decadron
Weaning O2
PT recs pend
CM will continue for d/c needs
[2023-12-04] MEDS: LOVENOX 40 MG SC (17:35)
[2023-12-04] MEDS: TESSALON PERLES 200 MG PO (20:08)
[2023-12-04 23:40] VITALS: BP 124/67
[2023-12-05] MEDS: ROCEPHIN 1000 MG IV (03:17)
[2023-12-05] MEDS: STERILE WATER FOR INJECTION 10 ML IV (03:18)
[2023-12-05 05:27] LABS: Hematocrit 34.4 % (37.0-47.0); Hemoglobin 11.5 g/dL (12.0-16.0); Mean Corp Hgb Conc. 33.4 g/dL (33.0-37.0); Mean Corpuscular Hgb 28.5 pg (27.0-31.0); Mean Corpuscular Volume 85.1 fL (81.0-99.0); Mean Platelet Volume 9.2 fL (7.4-10.4); Platelet Count 407 10^3/uL (130-400); Red Blood Cell Count 4.04 10^6/uL (4.20-5.40); Red Cell Dist. Width 13.2 % (11.5-14.5); White Blood Cell Count 12.7 10^3/uL (4.8-10.8)
[2023-12-05 05:49] LABS: Blood Urea Nitrogen 24 mg/dl (7-17); Calcium 9.3 mg/dl (8.4-10.2); Carbon Dioxide 28 mmol/L (22-30); Chloride 100 mmol/L (98-107); Estimated Creatinine Clearance 78 ml/min; Glucose 115 mg/dl (70-99); Magnesium 2.1 mg/dl (1.6-2.3); Potassium 4.6 mmol/L (3.5-5.1); Sodium 132 mmol/L (135-145); eGFR > 60.00
[2023-12-05 07:15] VITALS: BP 143/80
[2023-12-05] MEDS: FLOVENT 44 MCG INHALER 2 PUFF INH ×2 (07:24→19:57)
[2023-12-05] MEDS: DUONEB 3 ML INH ×4 (07:24→19:57)
[2023-12-05] MEDS: VITAMIN D3 (cholecalciferol) 10 MCG PO (08:31)
[2023-12-05] MEDS: MUCINEX 600 MG PO ×2 (08:31→19:35)
[2023-12-05] MEDS: ZOLOFT 50 MG PO (08:31)
[2023-12-05] MEDS: LIPITOR 10 MG PO (08:31)
[2023-12-05] MEDS: ZITHROMAX 500 MG PO (08:31)
[2023-12-05] MEDS: THERAGRAN 1 TABLET PO (08:31)
[2023-12-05] MEDS: PROTONIX 40 MG PO (08:31)
[2023-12-05] MEDS: SINGULAIR 10 MG PO (08:31)
[2023-12-05] MEDS: DECADRON 4 MG IV ×2 (08:31→19:35)
--- NOTE | 2023-12-05 10:57 | W.PN.HOSP.TC ---
Today's Communication/Plan
-
see A/P
Assessment / Plan
Assessment / Plan
A/P:
# Sepsis POA 2/2 CAP
# Acute asthma exacerbation
# Acute hypoxic respiratory insufficiency
Cont 2L NC, wean as tolerated, pt not on home O2
COVID/Flu negative
continue IV Ceftriaxone/Azithro
Check MRSA screen
sputum culture with usual respiratory evelio
Cont IV Decadron, weaned to 4mg q12h
Cont standing duonebs, Mucinex, acapella, incentive shavon
continue LAUNDROMAT MANAGER montelukast, inhalers
Started vest therapy
Informed pt to repeat CXR in 4 weeks with pulm (pt follows with Dr Macario zapata)
Clinically improving
# Hyponatremia, Mild
# GERD
LAUNDROMAT MANAGER PPI
# Depression
LAUNDROMAT MANAGER Zoloft
DVT PPx Lovenox subQ
FULL CODE
Anticipated Discharge: 24 - 48 hours
Subjective/Interval History
-
Date of Service: December 05, 2023
Objective Data
-
Labs:
Laboratory Results
12/05/23
05:12
WBC 12.7 H
Hgb 11.5 L
Hct 34.4 L
Plt Count 407 H
Sodium 132 L
Potassium 4.6
Chloride 100
Carbon Dioxide 28
BUN 24 H
Creatinine 0.7
Glucose 115 H
Calcium 9.3
Vital Signs:
Vital Signs
Temp Pulse Resp BP Pulse Ox
36.8 C 86 16 143/80 96
12/05/23 07:15 12/05/23 07:32 12/05/23 07:32 12/05/23 07:15 12/05/23 07:32
I&O
12/04/23 12/05/23 12/06/23
06:59 06:59 06:59
Intake Total 1380 / 1380 2039
Balance 1380 / 1380 2039
Review of Systems
-
Respiratory: Reports Cough and Trouble Breathing (improved)
Physical Exam
-
General: Well Developed, Well Nourished, Comfortable, Respiratory Distress and Conversant
HEENT: Normocephalic, Atraumatic, Nose Appears Normal, Ears Appear Normal and Oxygen (2L NC)
Respiratory: Clear to Auscultation, Wheezes (mild), Rhonchi and Non Labored Respirations; Negative Accessory Resp Muscle Use
Cardiac: Regular Rhythm and S1/S2
GI: Soft, Nontender, Nondistended and Normal Bowel Sounds
Skin: Warm and Dry
Neuro: Awake, Alert, Oriented and AO x 3
Psych: Calm and Intact Judgement/Insight
Data Reviewed
-
Diagnostic Radiology: Image personally visualized and interpreted and Report Reviewed by me
Labs: Labs Reviewed by me
--- NOTE | 2023-12-05 13:43 | CM ---
Patient seen at bedside. Patient plan for discharge is home with VN, pending PT/OT assessment. CM will continue to follow for discharge planning needs.
Plan; home with VN vs SNF pending PT/OT assessment
[2023-12-05 15:10] VITALS: BP 115/66
[2023-12-05 15:49] VITALS: BP 151/80; BP 157/81; PULSE 83; O2SAT 93
[2023-12-05] MEDS: LOVENOX 40 MG SC (17:18)
[2023-12-05 23:56] VITALS: BP 125/66
[2023-12-06] MEDS: STERILE WATER FOR INJECTION 10 ML IV (04:00)
[2023-12-06] MEDS: ROCEPHIN 1000 MG IV (04:00)
--- NOTE | 2023-12-06 04:11 | DOWNTIME ---
There was a [employer] Chief Librarian [employer] Department Downtime on 12/06/2023 from 0111 to 12/06/2023 at 0405. Downtime documentation of patient's care, including medication administrations, has been reconciled in the electronic record per guidelines. Refer to the
patient's paper chart under the miscellaneous tab to see printed paper medication records and downtime forms.
[2023-12-06 05:50] LABS: Hematocrit 34.8 % (37.0-47.0); Hemoglobin 11.4 g/dL (12.0-16.0); Mean Corp Hgb Conc. 32.8 g/dL (33.0-37.0); Mean Corpuscular Hgb 27.7 pg (27.0-31.0); Mean Corpuscular Volume 84.5 fL (81.0-99.0); Mean Platelet Volume 9.3 fL (7.4-10.4); Platelet Count 453 10^3/uL (130-400); Red Blood Cell Count 4.12 10^6/uL (4.20-5.40); Red Cell Dist. Width 13.3 % (11.5-14.5); White Blood Cell Count 14.7 10^3/uL (4.8-10.8)
[2023-12-06 06:44] LABS: Blood Urea Nitrogen 26 mg/dl (7-17); Calcium 9.3 mg/dl (8.4-10.2); Carbon Dioxide 26 mmol/L (22-30); Chloride 101 mmol/L (98-107); Estimated Creatinine Clearance 78 ml/min; Glucose 108 mg/dl (70-99); Potassium 4.5 mmol/L (3.5-5.1); Sodium 133 mmol/L (135-145); eGFR > 60.00
[2023-12-06 07:00] VITALS: BP 146/76
[2023-12-06] MEDS: FLOVENT 44 MCG INHALER 2 PUFF INH (07:25)
[2023-12-06] MEDS: DUONEB 3 ML INH ×2 (07:25→11:52)
[2023-12-06] MEDS: DECADRON 4 MG IV (07:38)
[2023-12-06] MEDS: PROTONIX 40 MG PO (07:38)
[2023-12-06] MEDS: LIPITOR 10 MG PO (07:38)
[2023-12-06] MEDS: TYLENOL 650 MG PO (07:38)
[2023-12-06] MEDS: VITAMIN D3 (cholecalciferol) 10 MCG PO (07:38)
[2023-12-06] MEDS: THERAGRAN 1 TABLET PO (07:38)
[2023-12-06] MEDS: ZOLOFT 50 MG PO (07:38)
[2023-12-06] MEDS: SINGULAIR 10 MG PO (07:38)
[2023-12-06] MEDS: MUCINEX 600 MG PO (07:38)
[2023-12-06 08:55] VITALS: BP 139/65; PULSE 64; O2SAT 98
--- NOTE | 2023-12-06 10:26 | W.PN.HOSP.TC ---
Addendum entered and electronically signed by Leeann Brush MD 12/06/23 12:56:
Total DC time 35 minutes
Original Note:
Today's Communication/Plan
-
DC home
Assessment / Plan
Assessment / Plan
A/P:
# Sepsis POA 2/2 CAP
# Acute asthma exacerbation
# Acute hypoxic respiratory insufficiency
weaned from 2L NC back to RA, pt not on home O2
COVID/Flu negative, MRSA screen neg, sputum culture with usual respiratory evelio
IV Ceftriaxone/Azithromycin -> Ceftin and PO Azithromycin 3 more days
Cont IV Decadron 4mg q12h -> PO prednisone taper start 50 mg and decrease 10 mg every 3 days til off
Cont standing duonebs, Mucinex, acapella, incentive shavon
continue DIRECT RESPONSE CONSULTANT montelukast, inhalers
Started vest therapy
Informed pt to repeat CXR in 4 weeks with pulm (pt follows with Dr Macario ellispt)
Clinically improving
# Hyponatremia, Mild
# GERD
DIRECT RESPONSE CONSULTANT PPI
# Depression
DIRECT RESPONSE CONSULTANT Zoloft
DVT PPx Lovenox subQ
FULL CODE
Anticipated Discharge: Today
Subjective/Interval History
-
Date of Service: December 06, 2023
Objective Data
-
Labs:
Laboratory Results
12/06/23
05:26
WBC 14.7 H
Hgb 11.4 L
Hct 34.8 L
Plt Count 453 H
Sodium 133 L
Potassium 4.5
Chloride 101
Carbon Dioxide 26
BUN 26 H
Creatinine 0.7
Glucose 108 H
Calcium 9.3
Vital Signs:
Vital Signs
Temp Pulse Resp BP Pulse Ox
36.4 C 86 18 146/76 96
12/06/23 07:00 02/21/24 07:30 12/06/23 07:30 12/06/23 07:00 12/06/23 07:30
I&O
12/05/23 12/06/23 12/07/23
06:59 06:59 06:59
Intake Total 2039 1460 / 1460
Balance 2039 1460 / 1460
Review of Systems
-
Respiratory: Reports Cough (improved) and Trouble Breathing (improved)
Physical Exam
-
General: Well Developed, Well Nourished, No Apparent Distress, Comfortable and Conversant
HEENT: Normocephalic, Atraumatic, Nose Appears Normal and Ears Appear Normal
Respiratory: Clear to Auscultation, Wheezes (mild), Rhonchi (improved) and Non Labored Respirations; Negative Accessory Resp Muscle Use
Cardiac: Regular Rhythm and S1/S2
GI: Soft, Nontender, Nondistended and Normal Bowel Sounds
Skin: Warm and Dry
Neuro: Awake, Alert, Oriented and AO x 3
Psych: Calm and Intact Judgement/Insight
Data Reviewed
-
Diagnostic Radiology: Image personally visualized and interpreted and Report Reviewed by me
Labs: Labs Reviewed by me
--- NOTE | 2023-12-06 12:42 | W.DCSUMMARY ---
Discharge Summary
Discharge Data
Date of Admission: 11/30/23
Date of Discharge: 12/06/23
-
Pending Results: No
Hospital Course
Principal Diagnosis:
Community-acquired pneumonia
Acute asthma exacerbation
Acute hypoxic respiratory insufficiency, resolved
Chronic Diagnoses:�
Gastroesophageal reflux disease
Depression on Zoloft
Consultations:�
None
Procedures:�
None
Clinical course:�
This is a 74-year-old female, with past medical history as stated above, who presented with shortness of breath and cough.
Problem 1:
Shortness of breath and cough due to community-acquired pneumonia in the left lower lobe and acute asthma exacerbation.
This was associated with acute hypoxic respiratory insufficiency, which has subsequently resolved.
She was weaned from 2L nasal cannula oxygen support back to room air.
Her COVID/Flu were negative, her MRSA screen was negative, and her sputum culture grew usual respiratory evelio.
She received IV antibiotic Ceftriaxone and oral Azithromycin while in the hospital.
She was discharged with oral Ceftin and Azithromycin for 3 more days (total 10 days).
She received IV Decadron while in the hospital, and she can continue with prednisone taper outpatient (start 50 mg and decrease 10 mg every 3 days til off).
She can continue with Mucinex following discharge.
She can continue with her prior to admission montelukast and her inhalers.
The patient has been informed to repeat CXR in 4 weeks with her outpatient insurance professional to evaluate for any improvement in the left lower lobe infiltrate (she follows with Dr Sorto outpatient).
As for the rest of her medical problems, they were stable during her hospital stay.
Discharge Plan
-
Patient Disposition: Home (Routine Discharge)
Discharge Diagnosis/Procedures: Mild hypoxia (resolved) due to community acquired pneumonia; Acute asthma exacerbation
Condition: Good
Diet: As tolerated, Low Fat, Low Cholesterol and Low Sodium
Activity: As tolerated
Driving Restrictions: As prior to admission
Others Tests: repeat Chest XRay in 4 weeks with your PCP/insurance professional
Activity Restrictions/Additional Instructions:
Continue antibiotics Ceftin and Azithromycin for 3 more days.
Continue Prednisone with taper: start 50 mg and decrease 10 mg every 3 days til off
Check repeat Chest XRay in 4 weeks with your PCP/insurance professional
Referrals:
Jane Garcia CRNP [Family Provider] - in less than 1 week
Prescriptions:
New
cefuroxime axetil 500 mg tablet
500 mg PO BID 3 Days Qty: 6 0RF
azithromycin 500 mg tablet
500 mg PO DAILY 3 Days Qty: 3 0RF
prednisone 10 mg Tablet
See Rx Instructions .ROUTE .COMPLEX Qty: 45 0RF
Rx Instructions:
Take By Mouth:
50 mg daily x3 days, 40 mg daily x3 days,
30 mg daily x3 days, 20 mg daily x3 days,
10 mg daily x3 days
benzonatate 200 mg capsule
200 mg PO BID PRN (Reason: Cough) Qty: 14 0RF
guaifenesin [Mucinex] 1,200 mg tablet extended release 12hr
1,200 mg PO Q12H Qty: 14 0RF
Continued
cholecalciferol (vitamin D3) [Vitamin D3] 400 UNITS tablet
1,000 units PO DAILY
magnesium oxide 500 MG capsule
500 mg PO Q48H
diphenhydramine HCl [Banophen] 25 MG capsule
25 mg PO Q4HPRN PRN (Reason: rash, itching) Qty: 10 0RF
atorvastatin 10 mg Tablet
10 mg PO QPM
pantoprazole 40 mg Tablet,Delayed Release (Dr/Ec)
40 mg PO DAILY
montelukast 10 mg Tablet
10 mg PO QPM
sertraline 50 mg Tablet
50 mg PO DAILY
Arnuity Ellipta 100 mcg/actuation Blister With Device
1 inh INHALATION R DAILY
albuterol sulfate 1.25 mg/3 mL Solution For Nebulization
1.25 mg INHALATION R TIDPRN PRN (Reason: sob)
therapeutic multivitamin Tablet
1 tab PO DAILY
albuterol sulfate [ProAir HFA] 90 mcg/actuation Hfa Aerosol Inhaler
2 puff INHALATION R Q6HPRN PRN (Reason: sob)
Discharge Orders:
Discharge Patient (As Directed); Ordered 12/06/23
Ordered By: Leeann Brush
[2023-12-06 13:20] VITALS: PULSE 81; O2SAT 93
== END 2023-12-06 13:38 | disposition home or self-care (01) | DRG 871 ==
LOC: 3 WEST ACU 05:39
PROVIDERS: Internal Medicine; ADMITTING PHYSICIAN Student in an Organized Health Care Education/Training Program; ATTENDING PHYSICIAN Internal Medicine; EMERGENCY PHYSICIAN Emergency Medicine; FAMILY PHYSICIAN Nurse Practitioner
DX: A41.9 Sepsis, unspecified organism (principal); J18.9 Pneumonia, unspecified organism; J96.01 Acute respiratory failure with hypoxia; J45.901 Unspecified asthma with (acute) exacerbation; E87.1 Hypo-osmolality and hyponatremia; G89.29 Other chronic pain; I10 Essential (primary) hypertension; M79.7 Fibromyalgia; R06.89 Other abnormalities of breathing; K21.9 Gastro-esophageal reflux disease without esophagitis; F32.A Depression, unspecified; Z77.22 Contact with and (suspected) exposure to environmental tobacco smoke (acute) (chronic); Z87.442 Personal history of urinary calculi; Z87.01 Personal history of pneumonia (recurrent); Z86.16 Personal history of COVID-19; Z88.0 Allergy status to penicillin; Z88.2 Allergy status to sulfonamides; Z88.8 Allergy status to other drugs, medicaments and biological substances; Z79.51 Long term (current) use of inhaled steroids; Z11.52 Encounter for screening for COVID-19
CPT/HCPCS: 71046; 80048; 80053; 83605; 83735; 84100; 84145; 85025; 85027; 87040; 87070; 87205; 87502; 87811; 93005; 94640; 94669; 96361; 96374; 96375; 97116; 97162; 97166; 99285

== ENCOUNTER → 2024-02-07 10:35 | Outpatient (REF) | payer OTHER, SELFPAY | LOC: HWRAD 10:35 | PROVIDERS: ATTENDING PHYSICIAN Internal Medicine Critical Care Medicine; FAMILY PHYSICIAN Nurse Practitioner | DX: J18.0 Bronchopneumonia, unspecified organism (principal) | CPT/HCPCS: 71046 ==

== ENCOUNTER → 2024-09-23 12:00 | Outpatient (REF) | payer OTHER, SELFPAY | LOC: HWRAD 12:00 | PROVIDERS: ATTENDING PHYSICIAN Internal Medicine Critical Care Medicine | DX: J18.0 Bronchopneumonia, unspecified organism (principal) | CPT/HCPCS: 71046 ==

== ENCOUNTER → 2024-10-28 13:59 | Outpatient (REF) | payer OTHER, SELFPAY | LOC: HWRAD 13:59 | PROVIDERS: ATTENDING PHYSICIAN Internal Medicine Critical Care Medicine | DX: J84.9 Interstitial pulmonary disease, unspecified (principal) | CPT/HCPCS: 71250 ==

== ENCOUNTER 2024-10-30 11:56 | Emergency (ER) | payer OTHER, SELFPAY ==
[2024-10-30 12:12] VITALS: BP 141/106
[2024-10-30 12:54] LABS: % Basophils 0.8 % (0-2); % Eosinophils 5.2 % (0-6); % Immature Granulocytes 0.2 % (0-0.5); % Lymphocytes 15.2 % (20.5-51.1); % Monocytes 6.3 % (1.7-9.3); % Neutrophils 72.3 % (42.2-75.2); Absolute Basophils 0.1 10^3/uL (0-0.2); Absolute Eosinophils 0.5 10^3/uL (0-0.7); Absolute Lymphocytes 1.4 10^3/uL (1.2-3.4); Absolute Monocytes 0.6 10^3/uL (0.1-0.6); Absolute Neutrophils 6.6 10^3/uL (1.4-6.5); Hematocrit 39.2 % (37.0-47.0); Hemoglobin 12.9 g/dL (12.0-16.0); Mean Corp Hgb Conc. 32.9 g/dL (33.0-37.0); Mean Corpuscular Hgb 28.6 pg (27.0-31.0); Mean Corpuscular Volume 86.9 fL (81.0-99.0); Mean Platelet Volume 9.6 fL (7.4-10.4); Nucleated Red Blood Cells % 0 %; Platelet Count 373 10^3/uL (130-400); Red Blood Cell Count 4.51 10^6/uL (4.20-5.40); Red Cell Dist. Width 13.1 % (11.5-14.5); White Blood Cell Count 9.2 10^3/uL (4.8-10.8)
[2024-10-30 13:06] LABS: COVID-19 Antigen Negative (Negative)
[2024-10-30 13:08] LABS: ALT (SGPT) 18 U/L (0-35); AST (SGOT) 21 U/L (14-36); Albumin 4.2 g/dl (3.5-5.0); Alkaline Phosphatase 90 U/L (38-126); Blood Urea Nitrogen 15 mg/dl (7-17); Calcium 9.8 mg/dl (8.4-10.2); Carbon Dioxide 30 mmol/L (22-30); Chloride 99 mmol/L (98-107); Glucose 100 mg/dl (70-99); Potassium 4.3 mmol/L (3.5-5.1); Sodium 137 mmol/L (135-145); Total Bilirubin 0.7 mg/dl (0.2-1.3); Total Protein 6.6 g/dl (6.3-8.2); eGFR > 60.00
--- NOTE | 2024-10-30 14:31 | ED.GENMED ---
History of Present Illness
General
Chief Complaint: Breathing Problem
Time Seen by Provider: 10/30/24 14:10
History of Present Illness
History of Present Illness:
73-year-old female with history of chronic bronchitis presents to the emergency department for evaluation of wheezing and shortness of breath developing 2 days ago. The day of onset of symptoms she had a routinely scheduled CT scan that showed no
acute pathology. Symptoms have worsened despite nebulizer use at home. Denies fevers or chills. Cough is generally nonproductive
Past History
Past History
ED Past Medical History: Fibromyalgia, HTN and Other (Chronic back pains)
ED Past Surgical History: Gynecological, Orthopedic (Knee surgery) and Other (Kidney stones knee surgery.)
Social History
Tobacco: 2nd hand smoke exposure
Alcohol: None
Drug: None
Personal:
Living: with family (mom)
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
Review of Systems
Review of Systems
Allergies reviewed?: Yes
All Other Systems: ROS reviewed and negative except as documented in HPI and ROS
Phy Exam
Physical Exam
Physical Exam:
GEN: Well appearing, NAD, WDWN
HEENT: Oral mucosa moist, no scleral icterus
Cardiac: Regular rate
Lung: No respiratory distress, no tachypnea, expiratory wheezes heard throughout all lung moreira
MSK: No gross deformity or injuries
Skin: Good color, no pallor or jaundice, no rashes
Neuro: AO x3, moves all extremities freely
Psych: Calm, cooperative
Scores
Heart Failure Risk
Heart Failure Risk Score: Not Applicable
Course
Orders/Labs/Results
Orders:
Orders
10/30/24 11:59
Electrocardiogram (*1) Urgent
Reason for Study: Shortness of Breath
EKG- Treatment ONCE
CR Chest - 2 Views Urgent
Comment:
Reason For Exam: cough
10/30/24 12:23
COVID-19 Antigen Urgent
Source: Nasal Swab
Complete Blood Count/With Diff Urgent
Comprehensive Metabolic Panel Urgent
Influenza A+B Rapid Molecular Urgent
SHAINA Source: Nasal Swab
Specimen Description:
10/30/24 14:30
Ipratropium/Albuterol Sulfate [Duoneb] 6 ml INH R NOW ONE
Prednisone [Deltasone] 40 mg PO NOW STA
Abnormal Lab Results
10/30/24
12:23
MCHC 32.9 L g/dL
(33.0-37.0)
Absolute Neuts (auto) 6.6 H 10^3/uL
(1.4-6.5)
Lymphocytes % 15.2 L %
(20.5-51.1)
Glucose 100 H mg/dl
(70-99)
10/30/24 12:23
10/30/24 12:23
Vital Signs
Initial and Last Documented VS:
Initial Vital Signs
Temp Pulse Resp BP Pulse Ox
99.4 F 103 16 141/106 98
10/30/24 12:12 10/30/24 12:12 10/30/24 12:12 10/30/24 12:12 10/30/24 12:12
Last Documented Vital Signs
Temp Pulse Resp BP Pulse Ox
99.4 F 92 15 119/66 100
10/30/24 12:12 10/30/24 15:15 10/30/24 15:15 10/30/24 15:00 10/30/24 15:15
MDM/Problems Addressed
MDM/Problems Addressed:
Likely acute COPD exacerbation, chest x-ray reassuring, labs unremarkable. Improved modestly with DuoNeb, will discharge home on steroid pulse with scheduled DuoNeb as well as zithromax for inflammatory benefit
*Critical Care Note
Total Time (30-74mins, 75-104mins- exclusive of procedures): Not Applicable
ED Attending Note
-
Portions of this chart may have been created with voice recognition software.� Occasional wrong word or��sound alike� substitutions may have occurred due to the inherent limitations of voice recognition software.
Discharge Plan
Departure
Patient Disposition: Home (Routine Discharge)
Date of Disposition: 10/30/24
Time of Disposition: 16:09
Patient with high blood pressure during this ER visit?: No
Discharge Problem:
Acute exacerbation of chronic bronchitis
Instructions: Acute Bronchitis, Adult (DC)
Prescriptions:
New
prednisone 20 mg tablet
40 mg PO DAILY 6 Days Qty: 12 0RF
azithromycin [Zithromax] 250 mg tablet
250 mg PO DAILY Qty: 6 0RF
Rx Instructions:
500mg po qd x 1 then 250mg po qd x 4d
No Action
cholecalciferol (vitamin D3) [Vitamin D3] 400 UNITS tablet
1,000 units PO DAILY
magnesium oxide 500 MG capsule
500 mg PO Q48H
diphenhydramine HCl [Banophen] 25 MG capsule
25 mg PO Q4HPRN PRN (Reason: rash, itching) Qty: 10 0RF
atorvastatin 10 mg Tablet
10 mg PO QPM
pantoprazole 40 mg Tablet,Delayed Release (Dr/Ec)
40 mg PO DAILY
montelukast 10 mg Tablet
10 mg PO QPM
sertraline 50 mg Tablet
50 mg PO DAILY
Arnuity Ellipta 100 mcg/actuation Blister With Device
1 inh INHALATION R DAILY
albuterol sulfate 1.25 mg/3 mL Solution For Nebulization
1.25 mg INHALATION R TIDPRN PRN (Reason: sob)
therapeutic multivitamin Tablet
1 tab PO DAILY
albuterol sulfate [ProAir HFA] 90 mcg/actuation Hfa Aerosol Inhaler
2 puff INHALATION R Q6HPRN PRN (Reason: sob)
cefuroxime axetil 500 mg tablet
500 mg PO BID 3 Days Qty: 6 0RF
azithromycin 500 mg tablet
500 mg PO DAILY 3 Days Qty: 3 0RF
prednisone 10 mg Tablet
See Rx Instructions .ROUTE .COMPLEX Qty: 45 0RF
Rx Instructions:
Take By Mouth:
50 mg daily x3 days, 40 mg daily x3 days,
30 mg daily x3 days, 20 mg daily x3 days,
10 mg daily x3 days
benzonatate 200 mg capsule
200 mg PO BID PRN (Reason: Cough) Qty: 14 0RF
guaifenesin [Mucinex] 1,200 mg tablet extended release 12hr
1,200 mg PO Q12H Qty: 14 0RF
Referrals:
Bora Reina CRNP [Family Provider] -
Activity Restrictions/Additional Instructions:
Use your albuterol/ipratropium nebulizer every 6 hours, you may combine this with your twice daily budesonide nebulizer
Return if symptoms worsen
Interventions
Interventions:
*Risk Screen - Suicide Last Done: 10/30/24 12:12
*Neglect/Abuse Screening Last Done: 10/30/24 12:12
ED- Fall Risk Assessment Last Done: 10/30/24 14:23
ED- Cardiac Assessment Last Done: 10/30/24 14:23
ED- Pulmonary Assessment Last Done: 10/30/24 14:23
Discharge Date and Time
Print Language: [id number]
[2024-10-30] MEDS: DUONEB 6 ML INH (14:44)
[2024-10-30] MEDS: DELTASONE 40 MG PO (14:44)
[2024-10-30 15:00] VITALS: BP 119/66
[2024-10-30 15:41] VITALS: BP 155/78
[2024-10-30 16:00] VITALS: BP 121/75
== END 2024-10-30 16:40 | disposition home or self-care (01) ==
LOC: EMR 11:56
PROVIDERS: Emergency Medicine; EMERGENCY PHYSICIAN Emergency Medicine
DX: J42 Unspecified chronic bronchitis (principal); I10 Essential (primary) hypertension; Z77.22 Contact with and (suspected) exposure to environmental tobacco smoke (acute) (chronic); M79.7 Fibromyalgia
CPT/HCPCS: 99285; 94640; 71046; 80053; 85025; 87502; 87811; 93005

== ENCOUNTER → 2025-01-01 10:05 | Outpatient (REF) | payer OTHER, SELFPAY | LOC: HWRAD 10:05 | DX: Z12.31 Encounter for screening mammogram for malignant neoplasm of breast (principal); Z78.0 Asymptomatic menopausal state | CPT/HCPCS: 77063; 77067; 77080 ==

== ENCOUNTER → 2025-01-06 11:26 | Outpatient (REF) | payer OTHER, SELFPAY | LOC: HWRAD 11:26 | DX: J41.1 Mucopurulent chronic bronchitis (principal) | CPT/HCPCS: 71046 ==

== ENCOUNTER → 2025-01-14 10:50 | Outpatient (REF) | payer OTHER, SELFPAY | LOC: HWRCS 10:50 | PROVIDERS: ATTENDING PHYSICIAN Internal Medicine Critical Care Medicine | DX: R06.02 Shortness of breath (principal) | CPT/HCPCS: 93306 ==

== ENCOUNTER 2025-03-28 11:38 | Emergency (ER) | payer OTHER, MEDICAID, SELFPAY ==
[2025-03-28 11:41] VITALS: BP 168/91
[2025-03-28 12:17] LABS: % Basophils 0.4 % (0-2); % Eosinophils 0.5 % (0-6); % Immature Granulocytes 0.5 % (0-0.5); % Lymphocytes 7.5 % (20.5-51.1); % Monocytes 2.6 % (1.7-9.3); % Neutrophils 88.5 % (42.2-75.2); Absolute Basophils 0.1 10^3/uL (0-0.2); Absolute Eosinophils 0.1 10^3/uL (0-0.7); Absolute Immature Granulocytes 0.1 10^3/uL (0-0.05); Absolute Lymphocytes 1.2 10^3/uL (1.2-3.4); Absolute Monocytes 0.4 10^3/uL (0.1-0.6); Absolute Neutrophils 13.5 10^3/uL (1.4-6.5); Hematocrit 39.3 % (37.0-47.0); Mean Corp Hgb Conc. 33.1 g/dL (33.0-37.0); Mean Corpuscular Volume 87.7 fL (81.0-99.0); Mean Platelet Volume 9.3 fL (7.4-10.4); Nucleated Red Blood Cells % 0 %; Platelet Count 335 10^3/uL (130-400); Red Blood Cell Count 4.48 10^6/uL (4.20-5.40); Red Cell Dist. Width 13.3 % (11.5-14.5); White Blood Cell Count 15.3 10^3/uL (4.8-10.8)
[2025-03-28 12:30] LABS: ALT (SGPT) 26 U/L (0-35); AST (SGOT) 24 U/L (14-36); Albumin 4.4 g/dl (3.5-5.0); Alkaline Phosphatase 65 U/L (38-126); Blood Urea Nitrogen 20 mg/dl (7-17); Calcium 10.2 mg/dl (8.4-10.2); Carbon Dioxide 28 mmol/L (22-30); Chloride 103 mmol/L (98-107); Glucose 112 mg/dl (70-99); Potassium 4.2 mmol/L (3.5-5.1); Sodium 140 mmol/L (135-145); Total Bilirubin 0.9 mg/dl (0.2-1.3); Total Protein 6.9 g/dl (6.3-8.2); eGFR > 60.00
[2025-03-28 12:39] LABS: NT-proBNP 21.2 pg/ml; Troponin I < 0.012 ng/ml
[2025-03-28 13:48] VITALS: BP 118/91
--- NOTE | 2025-03-28 13:55 | ED.GENMED ---
History of Present Illness
General
Chief Complaint: Breathing Problem
Time Seen by Provider: 03/28/25 13:54
History of Present Illness
History of Present Illness:
REVIEW OF OLD RECORDS
- The patient was seen in the emerged part in October diagnosed with COPD and discharged, the patient was admitted with COPD in November 2023 and she has history of chronic bronchitis, high blood pressure.
Note:
CHIEF COMPLAINT(S)
Swelling and shortness of breath.
HISTORY OF PRESENT ILLNESS
The patient is a 74-year-old female with a prior diagnosis of chronic bronchitis. She reports onset of wheezing and shortness of breath since October. She has been previously evaluated in the emergency room in October, at which time she was
discharged. The patient describes recent worsening of symptoms including significant swelling and a feeling of tightness throughout the body. She also reports difficulty putting on shoes due to the swelling, with one leg worse than the other.
The patient mentioned having been on prednisone for some time at a dose of 10 milligrams daily and using a nebulizer four times daily, specifically with Budesonide and Duonebs. A recent chest X-ray appeared normal upon initial evaluation, similar to
one done in October, which was considered normal by the radiologist.
The patient is under the care of multiple specialists, including a helpdesk analyst, a adult neurologist, and an padder, primarily due to her wheezing and potential underlying autoimmune concerns. She is also being monitored for a large hiatal hernia.
There is mention of ongoing outpatient tests, with some appointments extending into July. Despite these evaluations, her pulmonary physician advised her to visit the ER due to recent escalation of respiratory discomfort and edema.
EXAM
bilateral leg swelling, more pronounced on one side, without any evidence of heart failure per recent evaluations and normal levels from blood tests indicative of a low probability of heart failure.
No audible wheezing or concerning lung sounds were noted. Oxygen saturation was stable between 92-96%.
- General: Well appearing in no distress
- HEENT: Moist oral mucosa
- Cardiovascular: No murmurs, normal heart rate, regular rhythm, No chest wall tenderness
- Pulmonary: No respiratory distress, breath sounds are clear and equal
- Abdomen: Soft with no peritoneal signs, no tenderness
- Neurologic: Excellent strength all extremities, no coordination deficits
- Psychiatric: Appropriate mental status, normal insight and judgement
- Extremities: Nontender, mild bilateral lower extremity edema, moves all extremities equally
- Skin: No rash, no lesions
EXTERNAL RECORDS REVIEWED
According to prior ER records, chest X-rays from October showed normal results similar to current findings. Per documentation, the patient has been on prednisone 10 milligrams daily and using nebulizer treatments with Budesonide and Duonebs.
CHRONIC MEDICAL CONDITIONS SIGNIFICANTLY AFFECTING CARE
Chronic bronchitis.
PLAN
1. Administer a 20 milligram dose of intravenous Lasix to assist with acute management of swelling and provide a short course prescription for oral Lasix to assess patient response.
2. Send the patient for an ultrasound of the legs to rule out any thrombosis.
3. Continue outpatient management and follow-up with specialists, as scheduled.
DIFFERENTIAL DIAGNOSIS
The Differential Diagnosis includes, in no particular order and is not limited to:
1. Chronic Obstructive Pulmonary Disease (COPD) exacerbation
2. Pulmonary edema
3. Heart failure
4. Deep vein thrombosis
5. Nephrotic syndrome
6. Chronic kidney disease
7. Lymphedema
8. Hypoalbuminemia
9. Side effects from medication (e.g., corticosteroids)
10. Autoimmune disorder
RADIOLOGY
- Chest x-ray shows low lung volumes with no definite sign of pneumonia, hiatal hernia noted
- Ultrasound shows no DVT
EKG
- Sinus 88, left axis deviation, nonspecific ST abnormality
LABS
- White count 15.3, chemistries unremarkable, troponin less than 0.012, BNP 21
UPDATE
- Upon suggestion, the patient expressed willingness to undergo an ultrasound of the legs to assess for any potential blood clots, as well as consideration of a temporary course of Lasix (Furosemide) to manage swelling.
03/28/25 - 15:52
The patient shows no signs of heart failure or blood clots contributing to the leg swelling. A short trial of Lasix (20 mg daily) is recommended for three days to assess its efficacy in reducing water retention. Long-term use is not advised due to
potential kidney issues. Follow-up after the trial to evaluate improvement and reconsider the need for ongoing treatment. Although there is a questionable reported history of sulfa allergy, she did tolerate Lasix IV without any difficulty. The
patient has been urinating while in the Emergency Department 'a lot'.
Past History
Past History
ED Past Medical History: Fibromyalgia, HTN and Other (Chronic back pains)
ED Past Surgical History: Gynecological, Orthopedic (Knee surgery) and Other (Kidney stones knee surgery.)
Social History
Tobacco: 2nd hand smoke exposure
Alcohol: None
Drug: None
Personal:
Living: with family (mom)
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
Phy Exam
Physical Exam
Physical Exam:
See HPI
Scores
Heart Failure Risk
Heart Failure Risk Score: Not Applicable
Course
Orders/Labs/Results
Orders:
Orders
03/28/25 11:43
Electrocardiogram (*1) Urgent
Reason for Study: Other
Other Reason for Exam: Respiratory Distress
Cardiac Monitoring- Treatment ONCE
EKG- Treatment ONCE
IV Insert/Care/Rem.- Treatment PRN
CR Chest - 2 Views Urgent
Comment:
Reason For Exam: respiratory distress
O2 Therapy [RESP] Urgent
Titrate/Wean O2 to maintain O2 sat greater than (%): 93
Special Instructions: TO MAINTAIN CONTINUOUS O2 SATS >/= 93%
Pulse Ox/cont/shift [RESP] Urgent
Quantity: 1
Special Instructions: continuous pulse ox
03/28/25 11:57
Complete Blood Count/With Diff Urgent
Comprehensive Metabolic Panel Urgent
NT-proBNP Urgent
Troponin I Urgent
03/28/25 14:09
Furosemide [Lasix] 20 mg IV NOW STA
US Legs, Bilateral [US Periph Venous LOWER Ext Cory] Urgent
Comment:
Reason For Exam: swellling sob
Abnormal Lab Results
03/28/25
11:57
WBC 15.3 H 10^3/uL
(4.8-10.8)
Abs Immat Gran (auto) 0.1 H 10^3/uL
(0-0.05)
Absolute Neuts (auto) 13.5 H 10^3/uL
(1.4-6.5)
Neutrophils % 88.5 H %
(42.2-75.2)
Lymphocytes % 7.5 L %
(20.5-51.1)
BUN 20 H mg/dl
(7-17)
Glucose 112 H mg/dl
(70-99)
03/28/25 11:57
03/28/25 11:57
Vital Signs
Initial and Last Documented VS:
Initial Vital Signs
Temp Pulse Resp BP Pulse Ox
37.5 C 94 20 168/91 96
03/28/25 11:41 03/28/25 11:41 03/28/25 11:41 03/28/25 11:41 03/28/25 11:41
Last Documented Vital Signs
Temp Pulse Resp BP Pulse Ox
37.5 C 87 21 133/82 94
03/28/25 11:41 03/28/25 14:30 03/28/25 14:30 03/28/25 14:16 03/28/25 14:30
*Pulse Oximetry
Patient hypoxic: no (Room air sats between 93 and 96%)
*Plastic Top Assembler Interpretation
Rate: normal
Interpretation: normal
Heart Rate: 88
Rhythm: sinus
*Critical Care Note
Total Time (30-74mins, 75-104mins- exclusive of procedures): Not Applicable
ED Attending Note
-
Portions of this chart may have been created with voice recognition software.� Occasional wrong word or��sound alike� substitutions may have occurred due to the inherent limitations of voice recognition software.
Discharge Plan
Departure
Patient Disposition: Home (Routine Discharge)
Date of Disposition: 03/28/25
Time of Disposition: 15:53
Patient with high blood pressure during this ER visit?: Yes
Discharge Problem:
Bilateral edema of lower extremity
Instructions: Swelling, BLOOD PRESSURE
Prescriptions:
New
furosemide [Lasix] 20 mg tablet
20 mg PO DAILY Qty: 3 0RF
No Action
cholecalciferol (vitamin D3) [Vitamin D3] 400 UNITS tablet
1,000 units PO DAILY
magnesium oxide 500 MG capsule
500 mg PO Q48H
diphenhydramine HCl [Banophen] 25 MG capsule
25 mg PO Q4HPRN PRN (Reason: rash, itching) Qty: 10 0RF
atorvastatin 10 mg Tablet
10 mg PO QPM
pantoprazole 40 mg Tablet,Delayed Release (Dr/Ec)
40 mg PO DAILY
montelukast 10 mg Tablet
10 mg PO QPM
sertraline 50 mg Tablet
50 mg PO DAILY
Arnuity Ellipta 100 mcg/actuation Blister With Device
1 inh INHALATION R DAILY
albuterol sulfate 1.25 mg/3 mL Solution For Nebulization
1.25 mg INHALATION R TIDPRN PRN (Reason: sob)
therapeutic multivitamin Tablet
1 tab PO DAILY
albuterol sulfate [ProAir HFA] 90 mcg/actuation Hfa Aerosol Inhaler
2 puff INHALATION R Q6HPRN PRN (Reason: sob)
cefuroxime axetil 500 mg tablet
500 mg PO BID 3 Days Qty: 6 0RF
azithromycin 500 mg tablet
500 mg PO DAILY 3 Days Qty: 3 0RF
prednisone 10 mg Tablet
See Rx Instructions .ROUTE .COMPLEX Qty: 45 0RF
Rx Instructions:
Take By Mouth:
50 mg daily x3 days, 40 mg daily x3 days,
30 mg daily x3 days, 20 mg daily x3 days,
10 mg daily x3 days
benzonatate 200 mg capsule
200 mg PO BID PRN (Reason: Cough) Qty: 14 0RF
guaifenesin [Mucinex] 1,200 mg tablet extended release 12hr
1,200 mg PO Q12H Qty: 14 0RF
prednisone 20 mg tablet
40 mg PO DAILY 6 Days Qty: 12 0RF
azithromycin [Zithromax] 250 mg tablet
250 mg PO DAILY Qty: 6 0RF
Rx Instructions:
500mg po qd x 1 then 250mg po qd x 4d
Referrals:
NONE,* [Active, Internal Medicine]
Activity Restrictions/Additional Instructions:
The chest x-ray shows a hiatal hernia but the lungs appear clear and there is no sign of fluid in the lungs. Blood work shows no sign of heart failure or heart attack. Of note your white blood cell count is high however there is no sign of
pneumonia on the x-ray. Incidentally, there is a Tovar's cyst noted in the right popliteal space (behind the knee) measuring up to 2.2 cm�these commonly can go away on their own, there is no Tovar's cyst on the left side.
Interventions
Interventions:
*Risk Screen - Suicide Last Done: 03/28/25 11:41
*Neglect/Abuse Screening Last Done: 03/28/25 11:41
ED- Cardiac Assessment Last Done: 03/28/25 14:00
ED- Pulmonary Assessment Last Done: 03/28/25 14:00
ED-Skin Assessment Last Done: 03/28/25 14:00
Discharge Date and Time
Print Language: KHMER
[2025-03-28 14:01] VITALS: BP 133/82
[2025-03-28] MEDS: LASIX 20 MG IV (14:16)
[2025-03-28 16:00] VITALS: BP 141/76
== END 2025-03-28 16:06 | disposition home or self-care (01) ==
LOC: EMR 11:38
PROVIDERS: Emergency Medicine; EMERGENCY PHYSICIAN Emergency Medicine
DX: R60.0 Localized edema (principal); J44.9 Chronic obstructive pulmonary disease, unspecified; I10 Essential (primary) hypertension; M79.7 Fibromyalgia; Z77.22 Contact with and (suspected) exposure to environmental tobacco smoke (acute) (chronic); Z87.442 Personal history of urinary calculi
CPT/HCPCS: 99284; 96374; 71046; 80053; 83880; 84484; 85025; 93005; 93970

== ENCOUNTER → 2025-04-28 10:03 | Outpatient (REF) | payer OTHER, MEDICAID, SELFPAY | LOC: RAD 10:03 | PROVIDERS: ATTENDING PHYSICIAN Student in an Organized Health Care Education/Training Program | DX: R06.02 Shortness of breath (principal); J45.991 Cough variant asthma | CPT/HCPCS: 75574; Q9967 ==

== ENCOUNTER 2025-05-14 09:18 | Day surgery (SDC) | payer OTHER, SELFPAY ==
[2025-05-14] VITALS (14 sets, daily range): BP systolic 116–147; BP diastolic 67–119
[2025-05-14] MEDS: LOW STRENGTH ASPIRIN 81 MG PO (10:47)
[2025-05-14] MEDS: NSS 3 ML IV (10:51)
--- NOTE | 2025-05-14 13:15 | ITS.CL.CATH ---
[employer] - Catheterization
Cardiac Catheterization
Procedure Report:
CARDIAC CATHETERIZATION REPORT
Date of Procedure: 05/14/2025
Referring: Farooq Garza M.D.
INDICATION: Persistent dyspnea on exertion, abnormal coronary CTA.
PROCEDURE:
1. Left heart catheterization
2. Coronary angiography.
3. Aortography.
A total of 31 minutes of procedural/moderate sedation was utilized. An independent medical secretary teacher was present to assist with and help manage the patient's level of consciousness and physiologic status.
ACCESS:
1. 6 [place] right radial artery using a modified Seldinger technique under ultrasound guidance. There is a loop in the proximal right radial artery immediately after it bifurcates from the basilic artery.
CATHETERS:
1. 5 [place] JR4.
2. 5 [place] JL 3.5.
3. 4 [place] angled pigtail.
HEMODYNAMIC DATA
Weight (kg): 99.3
AO (s/d/x, mmHg): 109/64/83
LV (s/x mmHg): 109/16
LEFT VENTRICULOGRAPHY: Not performed.
AORTOGRAPHY: Performed in an INDONESIAN projection. The aortic root, ascending aorta, aortic arch and descending thoracic aorta appear normal. There is mild aortic valve insufficiency.
CORONARY ANGIOGRAPHY
Dominance: Right.
Left Main: Normal size, bifurcating vessel. There is no coronary artery disease.
LAD: Normal size vessel giving rise to 2 diagonals. There are minor luminal irregularities in the proximal and mid LAD.
Ramus: Congenitally absent.
Circumflex: Relatively small, nondominant vessel that is essentially a single obtuse marginal supplying the lateral wall. There is acute angulation of the circumflex origin, bending back approximately 150 degrees followed by a serpiginous course
with several hairpin turns. There is no coronary artery disease.
RCA: Large size, dominant vessel with a large posterolateral arcade. There is no coronary artery disease.
INTERVENTION(S)
None.
Closure Device: Vascular band.
Radiation (mGy): 422.71
DAP (cm2.Gy): 29.3098
Fluoroscopy time (minutes): 5.1
CONCLUSIONS
1. Right dominant circulation with minor luminal irregularities in the proximal and mid LAD, and acute angulation of the origin of the circumflex with several hairpin turns.
2. Mildly elevated filling pressures (LVEDP = 16 mmHg at 99.3 kg).
3. Right radial artery loop with a tortuous subclavian artery making cardiac catheterization from the right radial artery somewhat challenging.
4. Normal thoracic aorta with mild aortic valve insufficiency.
RECOMMENDATIONS:
1. Expectant management after cardiac catheterization via right radial approach.
2. Limited weight bearing on the right wrist for one week.
3. No significant coronary disease, favoring noncardiac source of dyspnea on exertion. Consider further workup of pulmonary disease.
4. Maintain current diuretic dose.
5. GDMT/OMT as hemodynamics will tolerate.
6. Continue secondary prevention with statin.
7. Routine surveillance of aortic valve insufficiency.
Copy to: Farooq Garza M.D., Bora Reina, GRAPHIC DESIGN MANAGER-C
León Putnam DO, FACC, FACP
--- NOTE | 2025-05-14 13:40 | W.DS.TRANS ---
DC Summary - Radar Technician
-
Discharge Instructions:
Discharge Diagnosis/Procedures Post cardiac catheterization.
Diet Low Fat,Low Cholesterol,Low Sodium
Activity No restrictions
Driving Restrictions No driving for 24 hours
Bathing Restrictions None
Instructions:
Stand-Alone Forms: DC Instructions- Cath/EP Lab
Changes to Home Medications: Yes
Discharge Medications:
DC Medications w/original date entered in [facility]
cholecalciferol (vitamin D3) 10 mcg (400 unit) tablet (Vitamin D3) 1,000 units PO DAILY Supplement 06/09/18
magnesium oxide 500 mg capsule 500 mg PO Q48H Electrolyte Repletion 06/09/18
albuterol sulfate 1.25 mg/3 mL solution for nebulization 1.25 mg inhalation R TIDPRN PRN sob 11/30/23
albuterol sulfate 90 mcg/actuation aerosol inhaler (ProAir HFA) 2 puff inhalation R Q6HPRN PRN sob 11/30/23
fluticasone furoate 100 mcg/actuation blister powder for inhalation (Arnuity Ellipta) 1 inh inhalation R DAILY Lung/Breathing Issues 11/30/23
montelukast 10 mg tablet 10 mg PO QPM Allergies 11/30/23
pantoprazole 40 mg tablet,delayed release 40 mg PO BID Gastrointestinal Issue 11/30/23
sertraline 50 mg tablet 50 mg PO DAILY Depression 11/30/23
therapeutic multivitamin 1 tab PO DAILY Supplement 11/30/23
atorvastatin 40 mg tablet (Lipitor) 40 mg PO HS #30 tabs 05/14/25
budesonide 0.5 mg/2 mL suspension for nebulization 0.5 mg inhalation BID 05/14/25
calcium 600 mg capsule 600 mg PO DAILY 05/14/25
furosemide 20 mg tablet (Lasix) 40 mg PO DAILY 05/14/25
ipratropium 0.5 mg-albuterol 3 mg (2.5 mg base)/3 mL nebulization soln 3 ml inhalation Q4H PRN sob 05/14/25
prednisone 10 mg tablet 10 mg PO MOWEFR 05/14/25
Home Medication Changes
Please increase atorvastatin to 40 mg daily (New Rx sent to pharmacy).
Pending Results: No
== END 2025-05-14 16:00 | disposition home or self-care (01) ==
LOC: CATH 09:18
PROVIDERS: ATTENDING PHYSICIAN Internal Medicine Cardiovascular Disease; OTHER PHYSICIAN Student in an Organized Health Care Education/Training Program
DX: I35.1 Nonrheumatic aortic (valve) insufficiency (principal); I10 Essential (primary) hypertension; Z79.52 Long term (current) use of systemic steroids; R06.09 Other forms of dyspnea; J84.9 Interstitial pulmonary disease, unspecified; E78.2 Mixed hyperlipidemia
CPT/HCPCS: 99152; 99153; 93458; 93567; C1894; Q9967

== ENCOUNTER → 2025-06-02 13:36 | Outpatient (REF) | payer OTHER, SELFPAY | LOC: HWRAD 13:36 | PROVIDERS: ATTENDING PHYSICIAN Internal Medicine Rheumatology; REFERRING PHYSICIAN Internal Medicine Critical Care Medicine | DX: M40.204 Unspecified kyphosis, thoracic region (principal); M41.30 Thoracogenic scoliosis, site unspecified | CPT/HCPCS: 72070 ==

== ENCOUNTER → 2025-06-04 13:09 | Outpatient (REF) | payer OTHER, SELFPAY | LOC: RAD 13:09 | PROVIDERS: ATTENDING PHYSICIAN Internal Medicine Critical Care Medicine | DX: R06.02 Shortness of breath (principal) | CPT/HCPCS: 71046; 78582; A9540; A9567 ==

== ENCOUNTER → 2025-06-10 08:49 | Outpatient (REF) | payer OTHER, SELFPAY | LOC: RAD 08:49 | PROVIDERS: ATTENDING PHYSICIAN Surgery; OTHER PHYSICIAN Internal Medicine Critical Care Medicine | DX: K44.9 Diaphragmatic hernia without obstruction or gangrene (principal) | CPT/HCPCS: 74246 ==

== ENCOUNTER → 2025-07-16 14:51 | Outpatient (REF) | payer OTHER, SELFPAY | LOC: DHSLP 14:51 | PROVIDERS: ATTENDING PHYSICIAN Internal Medicine Critical Care Medicine | DX: G47.33 Obstructive sleep apnea (adult) (pediatric) (principal); R09.02 Hypoxemia | CPT/HCPCS: 95800 ==

== ENCOUNTER 2025-08-07 19:00 | Inpatient (IN) | payer OTHER, SELFPAY ==
[2025-08-07 15:48] VITALS: BP 144/110
[2025-08-07 16:09] VITALS: BP 127/99
[2025-08-07 16:10] VITALS: BMI 41.8
--- NOTE | 2025-08-07 16:11 | ED.GENMED ---
History of Present Illness
<Sushila Alonzo PA-C - Last Filed: 08/07/25 23:56>
General
Chief Complaint: Breathing Problem
Source: patient, records and family
Exam Limitations: none
Time Seen by Provider: 08/07/25 15:57
History of Present Illness
History of Present Illness:
74yoF with a history of COPD on 2.5L NC at nighttime, hypertension, and obesity presenting for evaluation of shortness of breath. Patient reports having a bad night last night and was having trouble sleeping due to dyspnea. She has a chronic cough
which is worsening. Cough is normally productive of clear sputum but sputum is now yellow to green in color. She checked her pulse ox at home and oxygen saturations were ranging between 83 and 86%. She reports some chest tightness but denies any
overt chest pain. Temperature was 99.9 yesterday evening. Patient started to wean off of prednisone a few weeks ago and is currently taking 5 mg daily. Patient has been having ongoing lower extremity edema. She has been seen by cardiology who
told her that it was not cardiac related. She had a cardiac catheterization in April which did not show any significant coronary artery disease. Last echocardiogram was in January which showed an EF of 60 to 65%.
Past History
<Sushila Alonzo PA-C - Last Filed: 08/07/25 23:56>
Past History
ED Past Medical History: Fibromyalgia, HTN and Other (Chronic back pains)
ED Past Surgical History: Gynecological, Orthopedic (Knee surgery) and Other (Kidney stones knee surgery.)
Social History
Tobacco: 2nd hand smoke exposure
Alcohol: None
Drug: None
Personal:
Living: with family (mom)
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
Phy Exam
<Sushila Alonzo PA-C - Last Filed: 08/07/25 23:56>
General Physical Exam
General Presentation: mild distress
General Skin: warm and dry
General Habitus: normal
General Mental: alert
ENT Exam
ENT Exam: normocephalic
Cardiovascular Exam
Cardiovascular Exam: regular rate/rhythm and other (2+ pitting edema in bilateral lower extremities)
Pulmonary Exam
Pulmonary Exam: generalized wheezing and other (Diffuse wheezing throughout all lung moreira. Mildly increased work of breathing. Frequent cough.)
Neurological Exam
Neurological Exam: alert
Tj Coma Scale
Eye Opening: Spontaneous
Verbal Response: Oriented
Motor Response: Obeys Commands
GCS Total Score: 15
Skin Exam
Skin Exam: normal color and warm/dry
Psychiatric Exam
Psychiatric Exam: normal mood/affect
Scores
<Sushila Alonzo PA-C - Last Filed: 08/07/25 23:56>
Heart Failure Risk
Heart Failure Risk Score: Not Applicable
Course
<Sushila Alonzo PA-C - Last Filed: 08/07/25 23:56>
Orders/Labs/Results
Orders:
Orders
08/07/25 Lunch
Regular
At Your Request: Limited Participation
Does patient need a safe tray?: No
08/07/25 16:10
Electrocardiogram (*1) Urgent
Reason for Study: Shortness of Breath
Cardiac Monitoring- Treatment ONCE
EKG- Treatment ONCE
Albuterol Sulfate [Ventolin Nebules] 10 mg INH R NOW STA
Dexamethasone Sod Phosphate [Decadron] 10 mg IV NOW STA
Ipratropium Nebs [Atrovent Nebules] 1 mg INH R NOW STA
08/07/25 16:33
Basic Metabolic Panel Urgent
COVID-19 Antigen Urgent
Source: Nasal Swab
Complete Blood Count/With Diff Urgent
Influenza A+B Rapid Molecular Urgent
SHAIAN Source: Nasal Swab
Specimen Description:
08/07/25 16:36
CR Chest Portable - 1 View Urgent
Comment:
Reason For Exam: SOB, cough
Reason Study Needs to be Portable: Patient Unstable
08/07/25 17:14
NT-proBNP Urgent
Troponin I Urgent
08/07/25 17:55
Furosemide [Lasix] 40 mg IV NOW STA
08/07/25 18:16
Admit/Transfer Patient As Directed
Co-Sign Provider:
Level of Care: Inpatient admission
Assign to:: Telemetry
Physician / Group: romina kenyon
Diagnosis: Acute hypoxic respiratory failure
Reason for Telemetry: Pulmonary Edema
Date to Stop Telemetry: 08/10/25
Time to Stop Telemetry: 11:00
Reason for Hospitalization: Acute hypoxic respiratory failure.
Acute COPD exacerbation
Expected length of stay greater than two midnights?: Yes
ELOS- Estimated Length of Stay in days: 2
I certify the patient meets the requirements for IP care: Yes
08/07/25 18:17
PRN Pain Medication Management As Directed
May give lesser potent ordered pain med per pt: Yes
preference::
Protocol:: Medication orders for pain may be administered in a
manner that supports deferring to patient preference
when the pt is:
- Requesting an ordered lesser potent pain medication.
Least to most potent pain medications are defined
as: acetaminophen < NSAID < tramadol < opioids
(morphine, oxycodone, hydromorphone).
- Requesting a lesser dose of the same medication IF
ORDERED.
- Requesting a less intrusive route of administration
if both routes are prescribed by the provider (PO <
IV).
08/07/25 18:19
Code Status As Directed
Resuscitation Status: Full Code
08/07/25 20:41
Acetaminophen [Tylenol] 650 mg PO Q4HPRN PRN
Bisacodyl [Dulcolax] 10 mg RECTAL [id number] PRN
Budesonide [Pulmicort] 0.5 mg INH R BID
Docusate W/Senna [Senokot-S] 1 tablet PO BIDPRN PRN
Doxycycline [Vibramycin] 100 mg PO Q12
Guaifenesin [Mucinex] 600 mg PO Q12
Pantoprazole [Protonix] 40 mg PO BID
Polyethylene Glycol Powder [Miralax] 17 grams PO DAILYPRN PRN
08/07/25 20:41
PULMONARY CONSULT Routine
Consulting Provider: Jeremie Velasco
Was physician already notified: Yes
Reason for consult: Acute hypoxic respiratory failure/COPD
Urinalysis Reflex To Culture Routine
Sputum Culture [Respiratory Culture/Gram Stain] Routine
SHAINA Source: Sputum
Specimen Description:
Activity As Directed
Activity Level: With Assistance
Vital Signs As Directed
Frequency: Per unit guidelines
O2 Therapy [RESP] Routine
Titrate/Wean O2 to maintain O2 sat greater than (%): 92
DX Deep Vein Thrombosis Video Routine
08/07/25 22:00
Atorvastatin [Lipitor] 40 mg PO HS
Ipratropium/Albuterol Sulfate [Duoneb] 3 ml INH R TID
08/08/25 00:00
MethylPREDNISolone PF [Solu-Medrol Pf] 60 mg IV Q8H
08/08/25 06:00
Basic Metabolic Panel IN AM
Complete Blood Count/No Diff IN AM
Troponin I IN AM
08/08/25 08:00
FLUTICASONE PROPIONATE 44 mcg [Flovent 44 Mcg Inhaler] 2 puff INH R BID
Furosemide [Lasix] 40 mg IV DAILY
Sertraline HCl [Zoloft] 50 mg PO DAILY
08/08/25 18:00
Enoxaparin Sodium [Lovenox] 40 mg SC QPM
Montelukast Sodium [Singulair] 10 mg PO QPM
08/10/25 11:00
DC Protocol for Telemetry ONCE
Abnormal Lab Results
08/07/25
16:33
WBC 13.1 H 10^3/uL
(4.8-10.8)
RBC 3.89 L 10^6/uL
(4.20-5.40)
Hgb 11.4 L g/dL
(12.0-16.0)
Hct 35.8 L %
(37.0-47.0)
MCHC 31.8 L g/dL
(33.0-37.0)
Absolute Neuts (auto) 10.0 H 10^3/uL
(1.4-6.5)
Absolute Monos (auto) 0.9 H 10^3/uL
(0.1-0.6)
Neutrophils % 76.8 H %
(42.2-75.2)
Lymphocytes % 10.8 L %
(20.5-51.1)
Sodium 134 L mmol/L
(135-145)
08/07/25 16:33
08/07/25 16:33
Vital Signs
Initial and Last Documented VS:
Initial Vital Signs
Temp Pulse Resp BP Pulse Ox
98.2 F 110 20 144/110 90
08/07/25 15:48 08/07/25 15:48 08/07/25 15:48 08/07/25 15:48 08/07/25 15:48
Last Documented Vital Signs
Temp Pulse Resp BP Pulse Ox
98.9 F 85 18 108/69 96
08/07/25 23:32 08/07/25 23:32 08/07/25 23:32 08/07/25 23:32 08/07/25 23:32
Britneylt;Rasheed Land, DO - Last Filed: 08/07/25 21:12>
Orders/Labs/Results
Orders:
Orders
08/07/25 Lunch
Regular
At Your Request: Limited Participation
Does patient need a safe tray?: No
08/07/25 16:10
Electrocardiogram (*1) Urgent
Reason for Study: Shortness of Breath
Cardiac Monitoring- Treatment ONCE
EKG- Treatment ONCE
Albuterol Sulfate [Ventolin Nebules] 10 mg INH R NOW STA
Dexamethasone Sod Phosphate [Decadron] 10 mg IV NOW STA
Ipratropium Nebs [Atrovent Nebules] 1 mg INH R NOW STA
08/07/25 16:33
Basic Metabolic Panel Urgent
COVID-19 Antigen Urgent
Source: Nasal Swab
Complete Blood Count/With Diff Urgent
Influenza A+B Rapid Molecular Urgent
SHAINA Source: Nasal Swab
Specimen Description:
08/07/25 16:36
CR Chest Portable - 1 View Urgent
Comment:
Reason For Exam: SOB, cough
Reason Study Needs to be Portable: Patient Unstable
08/07/25 17:14
NT-proBNP Urgent
Troponin I Urgent
08/07/25 17:55
Furosemide [Lasix] 40 mg IV NOW STA
08/07/25 18:16
Admit/Transfer Patient As Directed
Co-Sign Provider:
Level of Care: Inpatient admission
Assign to:: Telemetry
Physician / Group: romina kenyon
Diagnosis: Acute hypoxic respiratory failure
Reason for Telemetry: Pulmonary Edema
Date to Stop Telemetry: 08/10/25
Time to Stop Telemetry: 11:00
Reason for Hospitalization: Acute hypoxic respiratory failure.
Acute COPD exacerbation
Expected length of stay greater than two midnights?: Yes
ELOS- Estimated Length of Stay in days: 2
I certify the patient meets the requirements for IP care: Yes
08/07/25 18:17
PRN Pain Medication Management As Directed
May give lesser potent ordered pain med per pt: Yes
preference::
Protocol:: Medication orders for pain may be administered in a
manner that supports deferring to patient preference
when the pt is:
- Requesting an ordered lesser potent pain medication.
Least to most potent pain medications are defined
as: acetaminophen < NSAID < tramadol < opioids
(morphine, oxycodone, hydromorphone).
- Requesting a lesser dose of the same medication IF
ORDERED.
- Requesting a less intrusive route of administration
if both routes are prescribed by the provider (PO <
IV).
08/07/25 18:19
Code Status As Directed
Resuscitation Status: Full Code
08/07/25 20:41
Acetaminophen [Tylenol] 650 mg PO Q4HPRN PRN
Bisacodyl [Dulcolax] 10 mg RECTAL [id number] PRN
Budesonide [Pulmicort] 0.5 mg INH R BID
Docusate W/Senna [Senokot-S] 1 tablet PO BIDPRN PRN
Doxycycline [Vibramycin] 100 mg PO Q12
Guaifenesin [Mucinex] 600 mg PO Q12
Pantoprazole [Protonix] 40 mg PO BID
Polyethylene Glycol Powder [Miralax] 17 grams PO DAILYPRN PRN
08/07/25 20:41
PULMONARY CONSULT Routine
Consulting Provider: Jeremie Velasco
Was physician already notified: Yes
Reason for consult: Acute hypoxic respiratory failure/COPD
Urinalysis Reflex To Culture Routine
Sputum Culture [Respiratory Culture/Gram Stain] Routine
SHAINA Source: Sputum
Specimen Description:
Activity As Directed
Activity Level: With Assistance
Vital Signs As Directed
Frequency: Per unit guidelines
O2 Therapy [RESP] Routine
Titrate/Wean O2 to maintain O2 sat greater than (%): 92
DX Deep Vein Thrombosis Video Routine
08/07/25 22:00
Atorvastatin [Lipitor] 40 mg PO HS
Ipratropium/Albuterol Sulfate [Duoneb] 3 ml INH R TID
08/08/25 00:00
MethylPREDNISolone PF [Solu-Medrol Pf] 60 mg IV Q8H
08/08/25 06:00
Basic Metabolic Panel IN AM
Complete Blood Count/No Diff IN AM
Troponin I IN AM
08/08/25 08:00
FLUTICASONE PROPIONATE 44 mcg [Flovent 44 Mcg Inhaler] 2 puff INH R BID
Furosemide [Lasix] 40 mg IV DAILY
Sertraline HCl [Zoloft] 50 mg PO DAILY
08/08/25 18:00
Enoxaparin Sodium [Lovenox] 40 mg SC QPM
Montelukast Sodium [Singulair] 10 mg PO QPM
08/10/25 11:00
DC Protocol for Telemetry ONCE
Abnormal Lab Results
08/07/25
16:33
WBC 13.1 H 10^3/uL
(4.8-10.8)
RBC 3.89 L 10^6/uL
(4.20-5.40)
Hgb 11.4 L g/dL
(12.0-16.0)
Hct 35.8 L %
(37.0-47.0)
MCHC 31.8 L g/dL
(33.0-37.0)
Absolute Neuts (auto) 10.0 H 10^3/uL
(1.4-6.5)
Absolute Monos (auto) 0.9 H 10^3/uL
(0.1-0.6)
Neutrophils % 76.8 H %
(42.2-75.2)
Lymphocytes % 10.8 L %
(20.5-51.1)
Sodium 134 L mmol/L
(135-145)
08/07/25 16:33
08/07/25 16:33
Vital Signs
Initial and Last Documented VS:
Initial Vital Signs
Temp Pulse Resp BP Pulse Ox
98.2 F 110 20 144/110 90
08/07/25 15:48 08/07/25 15:48 08/07/25 15:48 08/07/25 15:48 08/07/25 15:48
Last Documented Vital Signs
Temp Pulse Resp BP Pulse Ox
98.9 F 85 18 108/69 96
08/07/25 23:32 08/07/25 23:32 08/07/25 23:32 08/07/25 23:32 08/07/25 23:32
<Sushila Alonzo PA-C - Last Filed: 08/07/25 23:56>
MDM/Problems Addressed
Differential Diagnosis Includes:
74yoF here with SOB and cough. Hx of COPD on oxygen QHS. Oxygen saturations were in the 80s at home today. Oxygen saturation 90% in triage and nursing staff reports that she dropped to the low-mid 80s with ambulation. DIffuse wheezing on exam. There
is peripheral edema noted which she states has been ongoing x several months. Differential diagnosis includes but is not limited to: COPD exacerbation, viral illness, pneumonia, CHF exacerbation
Initial ED plan: Check cardiac labs, COVID/flu swab, EKG, and chest x-ray. Will give hour-long neb treatment and IV Decadron.
<Sushila Alonzo PA-C - Last Filed: 08/07/25 23:56>
*Pulse Oximetry
SaO2: 95
Oxygen Mode of Delivery: Room air
Patient hypoxic: yes
*EKG
Interpreted by ED Provider?: Yes
EKG Intrepretation Date: 08/07/25
Heart Rate: 93
Rate: normal
Rhythm: sinus
[place]: normal axis
Interval: normal interval
QRS Pattern: normal QRS
Ischemia: no ischemia
*Critical Care Note
Total Time (30-74mins, 75-104mins- exclusive of procedures): Not Applicable
<Sushila Alonzo PA-C - Last Filed: 08/07/25 23:56>
Update Note
Update Note:
Chest x-ray shows pulmonary edema and dose of 40mg IV Lasix ordered.. Troponin and BNP normal. Viral testing negative. Patient with persistent wheezing on reassessment. Given hypoxia, will admit for further management.
ED Attending Note
<Sushila Alonzo PA-C - Last Filed: 08/07/25 23:56>
-
Portions of this chart may have been created with voice recognition software.� Occasional wrong word or��sound alike� substitutions may have occurred due to the inherent limitations of voice recognition software.
<Rasheed Land DO - Last Filed: 08/07/25 21:12>
ED Attending Note
Patient seen and examined by attending physician: Yes
ED Attending Note:
I have reviewed and agree with history and treatment plan by Sushila Alonzo PA-C. My exam revealed bilateral wheezing, pulse ox 88 to 90%. Patient requires admission for her COPD exacerbation. Will give steroids and breathing treatments, and
likely consult with pulmonology.
Discharge Plan
Departure
Patient Disposition: Admit
Date of Disposition: 08/07/25
Time of Disposition: 17:58
Presentation/result/management discussed w/ accepting MD/DO: Hospitalist
Discharge Problem:
Acute exacerbation of chronic obstructive pulmonary disease, Acute hypoxemic respiratory failure
Interventions
Interventions:
*Risk Screen - Suicide Last Done: 08/07/25 15:48
*General Assessment Last Done: 08/07/25 16:11
*Neglect/Abuse Screening Last Done: 08/07/25 15:48
*ED COVID-19 Vaccine History Last Done: 08/07/25 16:10
*ED Influenza Vaccine History Last Done: 08/07/25 16:10
*Nursing Disposition Last Done: 08/07/25 21:03
ED- Cardiac Assessment Last Done: 08/07/25 17:00
ED- Pulmonary Assessment Last Done: 08/07/25 17:00
Discharge Date and Time
Discharge Date/Time: 08/07/25 21:03
[2025-08-07] MEDS: ATROVENT NEBULES 1 MG INH (16:15)
[2025-08-07] MEDS: VENTOLIN NEBULES 10 MG INH (16:15)
[2025-08-07] MEDS: DECADRON 10 MG IV (16:18)
[2025-08-07 16:42] LABS: Hematocrit 35.8 % (37.0-47.0); Hemoglobin 11.4 g/dL (12.0-16.0); Mean Corp Hgb Conc. 31.8 g/dL (33.0-37.0); Mean Corpuscular Volume 92.0 fL (81.0-99.0); Nucleated Red Blood Cells % 0 %; Platelet Count 305 10^3/uL (130-400); Red Cell Dist. Width 12.7 % (11.5-14.5)
[2025-08-07 17:00] VITALS: BP 109/89
[2025-08-07 17:01] LABS: Blood Urea Nitrogen 13 mg/dl (7-17); Calcium 9.6 mg/dl (8.4-10.2); Carbon Dioxide 30 mmol/L (22-30); Chloride 100 mmol/L (98-107); Estimated Creatinine Clearance 81 ml/min; Glucose 89 mg/dl (70-99); Sodium 134 mmol/L (135-145); eGFR > 60.00
[2025-08-07 17:11] LABS: COVID-19 Antigen Negative (Negative)
[2025-08-07 17:49] LABS: Troponin I < 0.012 ng/ml
[2025-08-07 18:00] VITALS: BP 128/77
--- NOTE | 2025-08-07 18:03 | HPS.HSE ---
Family Physician
-
Family Physician: ALTAGRACIA Laird
Chief Complaint
-
Shortness of breath
History of Present Illness
Patient is a pleasant 74 years old with a history of chronic hypoxic respiratory failure, COPD, home oxygen, hypertension, obesity, fibromyalgia who came to the ER with shortness of breath and lower extremity edema.
Patient was came to the ER on October 2024 with shortness of breath, was having progressive shortness of breath since then.
Patient came to the ER again in March 2025 also with worsening breathing and lower extremity edema , advised to start Lasix.
Patient was having shortness of breath more than normal including dyspnea exertion and lower extremity edema.
She usually uses oxygen at night, yesterday she noted that her oxygen dropped to 83- 86%, came to the ER today, BNP negative, troponin negative, chest x-ray showes Mild to moderate acute interstitial and alveolar cardiogenic pulmonary edema, patient
received steroid and breathing treatment in the ER, will be admitted under hospitalist.
Medical History
Past Medical History
Past Medical History: Reports Other (asthma, fibromyalgia, HTN, chronic cough post covid 08/07)
Past Surgical History: Reports Other (Gynecological, Orthopedic (Knee surgery) and Other (Kidney stones knee surgery.))
Social History
Tobacco: Other (second hand smoke exposure )
Alcohol: None
Family History
Family History: Not pertinent
Allergies / Home Medications
Allergies reflects when Allergies were last updated in [facility].
Home Medications with original date entered in [facility]
Allergy/Medication List:
Allergies
Allergy/AdvReac Type Severity Reaction Status Date / Time
Penicillins Allergy Hives Verified 08/07/25 15:50
Sulfa (Sulfonamide Allergy Swelling Verified 08/07/25 15:50
Antibiotics)
gatinol Allergy Unknown Uncoded 08/07/25 15:50
Home Medications
cholecalciferol (vitamin D3) 10 mcg (400 unit) tablet (Vitamin D3) 1,000 units PO DAILY Supplement 06/09/18
magnesium oxide 500 mg capsule 500 mg PO Q48H Electrolyte Repletion 06/09/18
albuterol sulfate 1.25 mg/3 mL solution for nebulization 1.25 mg inhalation R TIDPRN PRN sob 11/30/23
albuterol sulfate 90 mcg/actuation aerosol inhaler (ProAir HFA) 2 puff inhalation R Q6HPRN PRN sob 11/30/23
fluticasone furoate 100 mcg/actuation blister powder for inhalation (Arnuity Ellipta) 1 inh inhalation R DAILY Lung/Breathing Issues 11/30/23
montelukast 10 mg tablet 10 mg PO QPM Allergies 11/30/23
pantoprazole 40 mg tablet,delayed release 40 mg PO BID Gastrointestinal Issue 11/30/23
sertraline 50 mg tablet 50 mg PO DAILY Depression 11/30/23
therapeutic multivitamin 1 tab PO DAILY Supplement 11/30/23
atorvastatin 40 mg tablet (Lipitor) 40 mg PO HS #30 tabs 05/14/25
budesonide 0.5 mg/2 mL suspension for nebulization 0.5 mg inhalation BID 05/14/25
calcium 600 mg capsule 600 mg PO DAILY 05/14/25
furosemide 20 mg tablet (Lasix) 40 mg PO DAILY 05/14/25
ipratropium 0.5 mg-albuterol 3 mg (2.5 mg base)/3 mL nebulization soln 3 ml inhalation Q4H PRN sob 05/14/25
prednisone 10 mg tablet 10 mg PO MOWEFR 05/14/25
Review of Systems
-
A 12 point ROS was completed and negative except as noted: Yes
Constitutional: Reports Fatigue; Denies Fever, Weight Gain, Weight Loss or Sleep Disturbance
EENT: Denies Tearing, Sore Throat, Mouth Pain, Mouth Swelling or Runny Nose
Respiratory: Reports Cough and Trouble Breathing; Denies Hemoptysis
Cardiac: Denies Chest Pain, Diaphoresis, Palpitations or Syncope
Abdomen/GI: Denies Abdominal Pain, Nausea, Vomiting, Diarrhea, Constipated, Bloody Stools or Black Stools
: Denies Dysuria, Frequency, Flank Pain, Incontinence, Difficulty Voiding, Urgency, Bleeding or Dark Urine
Musculoskeletal: Reports Edema; Denies Joint Pain, Joint Swelling, Muscle Pain or Muscle Stiffness
Skin: Denies Itching or Rash
Neurological: Denies Dizzy, Headache, Weakness or Numbness
Endocrine: Denies Polyuria, Polydipsia or Temp Intolerance
Hematologic/Lymphatic: Denies Bleeding, Swollen Glands or Bruising
Psych: Reports Calm; Denies Depression, Anxiety or Panic Disorder
Physical Exam
Vital Signs
Vital Signs
Temp Pulse Resp BP Pulse Ox
98.2 F 86 26 144/110 95
08/07/25 15:48 08/07/25 16:09 08/07/25 16:09 08/07/25 15:48 08/07/25 16:14
Physical Exam
General: Well Developed, Well Nourished, No Apparent Distress, Comfortable and Good Appetite; No Pain, Chills or Sweats
HEENT: NormoCephalic, Moist mucous membranes, Atraumatic, Good Dentition, PERRLA, Nose Appears Normal and Ears Appear Normal
Respiratory: Wheezes, Rales, Rhonchi and Crackles
Cardiac: S1/S2 and Regular Rhythm
Breast: Deferred by me
GI: Soft, Non Tender, Non Distended and Normal Bowel Sounds
Genito-urinary: Deferred by me
Musculoskeletal: No Clubbing, No Cyanosis, Edema, Left Lower Extremity and Edema, Right Lower Extremity
Skin: Warm; No Rash, Jaundice, Ulcers, Lesions or Decubitus Ulcers
Neuro: Awake, Alert, Oriented, AO x 3, No Motor Deficits, Nonfocal/grossly intact and Cranial Nerves Intact
Hematologic/Lymphatic: No Lymphadenopathy
Psych: Calm
Laboratory Results
-
08/07/25 16:33
08/07/25 16:33
Laboratory Results
Total Bilirubin Cancelled 08/07/25 16:33
AST Cancelled 08/07/25 16:33
ALT Cancelled 08/07/25 16:33
Alkaline Phosphatase Cancelled 08/07/25 16:33
Troponin I < 0.012 ng/ml 08/07/25 17:14
Data Reviewed
-
Diagnostic Radiology: Report Reviewed by me
CT Scan: Report Reviewed by me
Medical Tests (Nuc Med, Echo, EKG etc): Report Reviewed by me
Lab Data: Labs Reviewed by me
Old Records: Reviewed
Impression/Plan
-
IMPRESSION:
Patient is a pleasant 74 years old with a history of chronic hypoxic respiratory failure, COPD, home oxygen, hypertension, obesity, fibromyalgia who came to the ER with shortness of breath and lower extremity edema.
She usually uses oxygen at night, yesterday she noted that her oxygen dropped to 83- 86% while on oxygen, came to the ER today, BNP negative, troponin negative, chest x-ray shows Mild to moderate acute interstitial and alveolar cardiogenic pulmonary
edema, patient received steroid/lasix and breathing treatment in the ER, will be admitted under hospitalist.
Assessment/plan:
Acute on chronic hypoxic respiratory failure secondary to COPD exacerbation
Acute COPD exacerbation
Patient uses oxygen at night, dropped oxygen sat at home while on oxygen.
Secondary to COPD exacerbation/preseizure lung edema.
Start Solu-Medrol/DuoNebs scheduled and as needed.
Lasix 40 mg IV daily.
Pulmonology consult.
Sputum culture.
Doxycycline
If No improvement to consider CT chest.
Continue Singulair
Lower extremity edema.
Negative BNP.
Possible secondary to chronic steroid use
Echocardiogram done on January 2025 shows:
Mildly dilated left ventricle (ИРИНА 5.5 cm). Left ventricular ejection fraction
is 60-65%. Normal regional wall motion.
Normal right ventricular size and function.
Mild to moderate aortic regurgitation.
Mild to moderate tricuspid regurgitation. Estimated pulmonary artery pressure
of 30-35 mmHg.
Cardiac cath done on May 14, 2025 shows no obstructive lung disease but cardio recommending to continue Lasix.
Continue Lasix 40 mg IV daily
History of hyperlipidemia.
Continue statin
History of anxiety/depression.
Continue sertraline
Mild hyponatremia.
Not clinically significant
CODE STATUS: Full code
DVT prophylaxis: Lovenox
Diet: Regular diet
Family communication: Discussed with son at bedside
Disposition: Admit under hospitalist
Total time spent on today's encounter was 75 minutes which included time spent in counseling the patient/family regarding diagnosis and treatment plan as listed above, goals of care, and symptom management. Case was discussed with nursing staff,
specialists, and care coordinators/case management. All labs and imaging personally reviewed by me. Remainder the time spent in detailed review of previous records, lab data, imaging, and other medical provider documentation.
[2025-08-07] MEDS: LASIX 40 MG IV (18:28)
[2025-08-07 20:53] VITALS: BP 161/86; BMI 39.8
[2025-08-07] MEDS: DUONEB 3 ML INH (21:17)
[2025-08-07] MEDS: PULMICORT 0.5 MG INH (21:17)
[2025-08-07] MEDS: MUCINEX 600 MG PO (22:11)
[2025-08-07] MEDS: LIPITOR 40 MG PO (22:11)
[2025-08-07] MEDS: PROTONIX 40 MG PO (22:11)
[2025-08-07] MEDS: VIBRAMYCIN 100 MG PO (22:11)
[2025-08-07 23:32] VITALS: BP 108/69
[2025-08-08] VITALS (7 sets, daily range): BP systolic 101–150; BP diastolic 58–84; PULSE 2–84
[2025-08-08] MEDS: SOLU-MEDROL PF 60 MG IV ×2 (01:30→08:09)
[2025-08-08 05:47] LABS: Urine Character Clear (Clear)
[2025-08-08 05:55] LABS: Urine Red Blood Cell 0-2 /HPF (0-2); Urine Squamous Cell 0-2 /LPF (Few); Urine White Cell 0-2 /HPF (0-5)
[2025-08-08] MEDS: PULMICORT 0.5 MG INH ×2 (07:25→20:08)
[2025-08-08] MEDS: DUONEB 3 ML INH ×3 (07:25→20:08)
[2025-08-08 07:38] LABS: Hematocrit 36.8 % (37.0-47.0); Hemoglobin 12.0 g/dL (12.0-16.0); Mean Corp Hgb Conc. 32.6 g/dL (33.0-37.0); Mean Corpuscular Volume 90.2 fL (81.0-99.0); Platelet Count 326 10^3/uL (130-400); Red Cell Dist. Width 12.6 % (11.5-14.5)
[2025-08-08 08:00] LABS: Troponin I 0.012 ng/ml
[2025-08-08] MEDS: LASIX 40 MG IV (08:10)
[2025-08-08] MEDS: ZOLOFT 50 MG PO (08:11)
[2025-08-08] MEDS: VIBRAMYCIN 100 MG PO ×2 (08:11→19:55)
[2025-08-08] MEDS: PROTONIX 40 MG PO ×2 (08:11→19:55)
[2025-08-08] MEDS: MUCINEX 600 MG PO ×2 (08:11→19:55)
[2025-08-08 08:15] LABS: Blood Urea Nitrogen 16 mg/dl (7-17); Calcium 9.8 mg/dl (8.4-10.2); Carbon Dioxide 31 mmol/L (22-30); Chloride 101 mmol/L (98-107); Estimated Creatinine Clearance 79 ml/min; Glucose 153 mg/dl (70-99); Potassium 4.3 mmol/L (3.5-5.1); Sodium 137 mmol/L (135-145); eGFR > 60.00
--- NOTE | 2025-08-08 09:21 | CON.PUL ---
Consultation
Consultation Request
Date/Time Consultation Requested: 08/08/25
Date/Time Consultation Performed: 08/08/25
Performing Provider: Hemant
Reason for Consultation: SOB
Medical History
-
History of Present Illness:
Patient is a pleasant 74 years old with a history of chronic hypoxic respiratory failure, COPD, home oxygen, hypertension, obesity, fibromyalgia who came to the ER with shortness of breath and lower extremity edema. She was seen multiple times in
the past in [facility] ER and instructed to take diuretics. She has a history of cough variant asthma, SONIA not on CPAP, chronic bronchitis and follows [facility] Dr Sorto, last seen on 08/01/25 in the office. She usually uses oxygen at night, yesterday she
noted that her oxygen dropped to 83- 86%, came to the ER today. BNP negative, troponin negative, chest x-ray showed mild to moderate acute interstitial and alveolar cardiogenic pulmonary edema, patient received steroid and breathing treatment in the
ER.
Past Medical History
Past Medical History: Other (see list below)
Social History
Tobacco: Non-smoker
Alcohol: None
Drug: None
Family History
Family History: Reviewed & Not Pertinent
Allergies / Home Medications
Allergies
Allergy/AdvReac Type Severity Reaction Status Date / Time
Penicillins Allergy Hives Verified 08/07/25 15:50
Sulfa (Sulfonamide Allergy Swelling Verified 08/07/25 15:50
Antibiotics)
gatinol Allergy Unknown Uncoded 08/07/25 15:50
Home Medications
�Medication �Instructions �Recorded �Confirmed �Last Taken �Type
cholecalciferol (vitamin D3) 10 1,000 units PO DAILY Supplement 06/09/18 08/07/25 05/13/25 08:00 History
mcg (400 unit) tablet (Vitamin D3)
albuterol sulfate 1.25 mg/3 mL 1.25 mg inhalation R TIDPRN PRN sob 11/30/23 08/07/25 05/13/25 17:00 History
solution for nebulization
albuterol sulfate 90 mcg/actuation 2 puff inhalation R Q6HPRN PRN sob 11/30/23 08/07/25 05/05/25 18:00 History
aerosol inhaler (ProAir HFA)
montelukast 10 mg tablet 10 mg PO QPM Allergies 11/30/23 08/07/25 05/12/25 20:00 History
pantoprazole 40 mg tablet,delayed 40 mg PO BID Gastrointestinal Issue 11/30/23 08/07/25 05/13/25 20:00 History
release
sertraline 50 mg tablet 50 mg PO DAILY Depression 11/30/23 08/07/25 05/13/25 08:00 History
therapeutic multivitamin 1 tab PO DAILY Supplement 11/30/23 08/07/25 05/13/25 08:00 History
atorvastatin 40 mg tablet (Lipitor) 40 mg PO HS #30 tabs 05/14/25 08/07/25 Unknown Rx
budesonide 0.5 mg/2 mL suspension 0.5 mg inhalation BID 05/14/25 08/07/25 05/12/25 08:00 History
for nebulization Lung/Breathing Issues
calcium 600 mg capsule 600 mg PO DAILY Supplement 05/14/25 08/07/25 05/13/25 08:00 History
ipratropium 0.5 mg-albuterol 3 mg 3 ml inhalation Q4H PRN sob 05/14/25 08/07/25 05/13/25 08:00 History
(2.5 mg base)/3 mL nebulization
soln
prednisone 10 mg tablet 10 mg PO MOWEFR INFLAMMATION 05/14/25 05/14/25 05/12/25 08:00 History
celecoxib 200 mg capsule (Celebrex) 200 mg PO DAILYPRN INFLAMMATION 08/08/25 08/08/25 Unknown History
PAIN
magnesium oxide 250 mg PO DAILY Supplement 08/08/25 08/08/25 Unknown History
torsemide 20 mg tablet 20 mg PO DAILY Fluid 08/08/25 08/08/25 Unknown History
Retention/Swelling
Review of Systems
-
History Source: Patient
All other systems: Negative unless noted
Vitals / Labs / Diagnostic Testing
Vital Signs
Temp Pulse Resp BP Pulse Ox
98.1 F 92 16 150/84 92
08/08/25 07:27 08/08/25 07:28 08/08/25 07:28 08/08/25 08:10 08/08/25 08:07
Lab Data
08/08/25 07:04
08/08/25 07:04
Microbiology
08/07/25 16:33 Nasal Swab Influenza Types A & B (CHARITO) - Final
Negative for Influenza A & B, NAAT
Negative results must be combined with clinical observations
and patient history.
Nucleic Acid Amplification test (NAAT)performed on the
[employer] platform.
Diagnostic Testing:
Physical Exam
-
HEENT: Normocephalic, Anicteric and Moist Mucous Membranes
Cardiovascular: S1/S2 and Regular Rhythm
Respiratory: Rhonchi (w/ cough on deep inspiration) and Non-Labored Respirations
GI: Soft, Non Distended and Non Tender
Neurology: Awake, Alert, Oriented and No Motor Deficits
Skin: Warm, Dry and Good Color
General: Comfortable and Other (NAD)
Assessment
-
Patient is a pleasant 74 years old with a history of chronic hypoxic respiratory failure, COPD, home oxygen, hypertension, obesity, fibromyalgia who came to the ER with shortness of breath and lower extremity edema. She was seen multiple times in
the past in [facility] ER and instructed to take diuretics. She has a history of cough variant asthma, SONIA not on CPAP, chronic bronchitis and follows [facility] Sorto, last seen on 08/01/25 in the office. She usually uses oxygen at night, yesterday she
noted that her oxygen dropped to 83- 86%, came to the ER today. BNP negative, troponin negative, chest x-ray showed mild to moderate acute interstitial and alveolar cardiogenic pulmonary edema, patient received steroid and breathing treatment in the
ER. We are consulted for evaluation.
Acute hypoxic respiratory failure
Acute heart failure exacerbation
Bibasilar atelectasis likely contributing to hypoxemia
Noncompliance
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
Cough variant asthma
H/o noncompliance with inhaler regimen
CT with bibasilar linear atelectasis
History of frequent steroid use
RLD with chronic SOB-TLC has decreased by half a liter (multifactorial given BMI and large HH)
Morbid obesity with persistent weight gain and inactivity
Mixed simple and mucopurulent chronic bronchitis
Severe SONIA- AHI 91 with QUYEN of 81%, not yet on CPAP
Osteopenia
Lumbago with sciatica
Thoracic aorta atherosclerosis
Generalized anxiety disorder
Moderate aortic regurgitation
Gastro-esophageal reflux disease
Antineutrophil cytoplasmic antibody (ANCA) positive
Hiatal hernia, moderate to large size
Plan
Hypoxemia noted on arrival, she is placed on supplemental o2
Uses O2 at night at baseline
Home O2 evaluation eventually
Prior history of lung disease is noted including cough variant asthma, chronic bronchitis, severe SONIA, RLD
Reviewed outpatient records wtih reduced TLC recently
This is likely multifactorial given her BMI, untreated apnea, large HH, sedentary lifestyle and possible mild subacute HF
CXR/CT obtained indicating congestion but this can be exacerbated on low lung volumes and in obese patients
Other imaging reviewed--CT in past largely negative but does show chronic large HH
Reviewed treatment including aggressive IS, rehab
Placed on large IV steroid doses
She is treated frequently with PO prednisone as OP, I think we can taper rapidly to off as this may not benefit her significantly
proBNP negative on admission
She is maintained on IV lasix
Prior ECHO results are reviewed indicating normal function
Cards following, appreciate recs
SONIA history, not yet set up on CPAP, this was scheduled for next tues
I will add on BIPAP while inpatient, as her AHI is very severe
Suspect concurrent OHS, can check VBG as well
O2 at night w/o PAP likely exacerbating CO2 retention
Weight loss measures recommended
Obesity likely contributing to respiratory symptoms
Zepbound had been previously discussed with her as OP
Will need outpatient pulmonary evaluation in our office for PFTs and 6MWT
Reviewed with patient
Discussed with care team as well
We will follow
Diagnostic Data
CXR 08/07/25- 1. Mild to moderate acute interstitial and alveolar cardiogenic pulmonary edema.
2. Mild cardiomegaly.
3. Mild scarring in the lingula.
4. Moderate-sized paraesophageal hiatal hernia.
CT Chest 10/28/24- . Stable right lower lobe scarring. No pulmonary nodules, areas of airspace disease, pleural effusions, pericardial effusions or pathologically enlarged noncalcified lymph nodes in the thorax. No pneumothorax. Moderate to large
hiatal hernia, slightly progressed from 2018.
ECHO 01/14/25- Mildly dilated left ventricle (ИРИНА 5.5 cm). Left ventricular ejection fraction is 60-65%. Normal regional wall motion. Normal right ventricular size and function. Mild to moderate aortic regurgitation. Mild to moderate tricuspid
regurgitation. Estimated pulmonary artery pressure of 30-35 mmHg. No significant change in overall cardiac function since the prior study of 04/24/2023.
Reports and relevant images were personally reviewed.
Total time spent on this consultation __75__ minutes which includes review of history, physical exam, medications, laboratory data, personal review of imaging, extensive review of outpatient records, discussion with care team and respiratory therapy.
--- NOTE | 2025-08-08 11:14 | CON.CAR ---
Addendum entered and electronically signed by Sukhi Devries MD 08/08/25 12:31:
I saw and evaluated the patient, and I provided the substantive portion of the medical decision making.
I reviewed and agree with the note by Ms Ramos and it accurately reflects our care.
I personally performed the medical decision making of the this encounter and my assessment and plan is below:
74 yo female with asthma, chronic bronchitis, nocturnal oxygen, GERD, severe obstructive sleep apnea (not treated with CPAP), interstitial lung disease, hypertension, hyperlipidemia, elevated CT coronary calcium score and mixed valvular disease, who
presents with sob, cough and mild fever at home.
Her echo is suspicious for possible PE given findings consistent with Escobar's sign --> discussed with primary team
Recommend gentle diuresis today; home diuretic tomorrow.
D-Dimer test and if elevated recommend PE study.
We will sign off please call with questions/concerns.
Original Note:
Consultation
Consultation Request
Date/Time Consultation Requested: 08/08/25 1045
Date/Time Consultation Performed: 08/08/25 1100
Requesting Provider: Dr. Neal
Performing Provider: ALTAGRACIA Yun for Dr. Devries
Reason for Consultation: sob
Medical History
-
Chief Complaint: sob, cough
History of Present Illness:
Mrs. Becerra is a 74 yo female with asthma, chronic bronchitis, nocturnal oxygen, GERD, severe obstructive sleep apnea (not treated with CPAP), interstitial lung disease, hypertension, hyperlipidemia, elevated CT coronary calcium score and mixed
valvular disease, who presents with sob, cough and mild fever at home. She is admitted to the hospitalist service and we are consulted for acute HFpEF. CXR with pulmonary edema and she reports compliance with Torsemide 20mg daily at home, denies
acute weight gain. She had a right and left heart cath in April 2025 with minor luminal irregularities in the prox/mid LAD and LVEDP 16mmHg at 218 lbs. Her weight today is 217 lbs. She did receive IV Lasix 40mg today.
Past Medical History
Past Medical History: Other (as above )
Social History
Tobacco: Non-Smoker
Personal: Single
Living: Alone
Family History
Family History: Reviewed & Not Pertinent
Allergies / Home Medications
Allergy/AdvReac Type Severity Reaction Status Date / Time
Penicillins Allergy Hives Verified 08/07/25 15:50
Sulfa (Sulfonamide Allergy Swelling Verified 08/07/25 15:50
Antibiotics)
gatinol Allergy Unknown Uncoded 08/07/25 15:50
�Medication �Instructions �Recorded �Confirmed �Type
cholecalciferol (vitamin D3) 10 1,000 units PO DAILY Supplement 06/09/18 08/07/25 History
mcg (400 unit) tablet (Vitamin D3)
albuterol sulfate 1.25 mg/3 mL 1.25 mg inhalation R TIDPRN PRN sob 11/30/23 08/07/25 History
solution for nebulization
albuterol sulfate 90 mcg/actuation 2 puff inhalation R Q6HPRN PRN sob 11/30/23 08/07/25 History
aerosol inhaler (ProAir HFA)
montelukast 10 mg tablet 10 mg PO QPM Allergies 11/30/23 08/07/25 History
pantoprazole 40 mg tablet,delayed 40 mg PO BID Gastrointestinal Issue 11/30/23 08/07/25 History
release
sertraline 50 mg tablet 50 mg PO DAILY Depression 11/30/23 08/07/25 History
therapeutic multivitamin 1 tab PO DAILY Supplement 11/30/23 08/07/25 History
atorvastatin 40 mg tablet (Lipitor) 40 mg PO HS #30 tabs 05/14/25 08/07/25 Rx
budesonide 0.5 mg/2 mL suspension 0.5 mg inhalation BID 05/14/25 08/07/25 History
for nebulization Lung/Breathing Issues
calcium 600 mg capsule 600 mg PO DAILY Supplement 05/14/25 08/07/25 History
ipratropium 0.5 mg-albuterol 3 mg 3 ml inhalation Q4H PRN sob 05/14/25 08/07/25 History
(2.5 mg base)/3 mL nebulization
soln
prednisone 10 mg tablet 10 mg PO MOWEFR INFLAMMATION 05/14/25 05/14/25 History
celecoxib 200 mg capsule (Celebrex) 200 mg PO DAILYPRN INFLAMMATION 08/08/25 08/08/25 History
PAIN
magnesium oxide 250 mg PO DAILY Supplement 08/08/25 08/08/25 History
torsemide 20 mg tablet 20 mg PO DAILY Fluid 08/08/25 08/08/25 History
Retention/Swelling
Review of Systems
-
History Source: Patient
All other systems: Negative unless noted
Physical Exam
Vital Signs
Temp Pulse Resp BP Pulse Ox
98.1 F 92 16 150/84 92
08/08/25 07:27 08/08/25 07:28 08/08/25 07:28 08/08/25 08:10 08/08/25 08:07
Lab Results
08/08/25 07:04
08/08/25 07:04
Troponin I 0.012 ng/ml 08/08/25 07:04
Bgy-K-Injdgstmxft Pept 25.6 pg/ml 08/07/25 17:14
Physical Exam
General: Well Developed, Well Nourished, No Apparent Distress and Other (obese)
HEENT: Normocephalic and Anicteric
Respiratory: Wheezes (expiratory), Rhonchi (expiratory diffuse b/l ) and Other (O2 2L NC)
Cardiac: S1/S2 and Regular Rhythm
Breast: Deferred by me
GI: Soft, Non Tender, Non Distended and Normal Bowel Sounds
Rectal: Deferred by Provider
Genito-urinary: Clear Urine
Musculoskeletal: No Clubbing and No Cyanosis
Skin: Warm and Dry
Neuro: AO x 3
Hematologic/Lymphatic: No Lymphadenopathy
Psych: Calm
Impression / Plan
-
SOB - multifactorial.
- mild acute HFpEF, interstitial lung disease, hiatal hernia and obesity.
- pulmonary following as well.
- oxygen, nebs, inhalers, steroids.
HFpEF - acute on chronic.
- mild exacerbation.
- initial weight on arrival noted as 228 lbs and now 217 lbs.
- agree with IV Lasix today then switch to PO Torsemide 20mg daily tomorrow.
- daily weights.
- RHC 04/2025 LVEDP 16mmHg (normal) at 218 lbs.
HTN - stable on medical therapy, continue.
Obesity - recommend weight loss, she is interested in Zepbound if she can afford it.
- pulmonary and PCP working on this as outpatient.
SONIA - severe and untreated.
- she had a sleep study recently and is scheduled to be fitted for CPAP next week.
Data Reviewed
-
EKG: Tracing Personally Visualized and interpreted
Medical Tests (Nuc Med, Echo etc): Report Reviewed by me (echo 01/14/2025: Mildly dilated LV (ИРИНА 5.5 cm), LVEF 60-65%, mild/mod AR, mild/mod TR, PASP 30-35 mmHg.) and Other (Cardiac cath 05/14/25: Right dominant circulation with minor luminal
irregularities in the proximal and mid LAD, and acute angulation of the origin of the circumflex with several hairpin turns.�Mildly elevated filling pressures (LVEDP = 16 mmHg at 217lbs))
Labs: Labs Reviewed by me
Old Records: Reviewed
--- NOTE | 2025-08-08 12:09 | W.PN.HOSP.TC ---
Today's Communication/Plan
-
Ddimer - CT-PE if abnormal
continue steroids/doxy
continue IV Lasix; oral diuretics tomorrow
appreciate Cards/Pulm
Home O2 eval in 24 hours
Assessment / Plan
Assessment / Plan
Assessment:
Acute on chronic respiratory failure
Acute COPD exacerbation-
- s/p IV steroids; now on oral steroids
- continue Duonebs prn/scheduled
- Budesonide
- Doxycycline
- Pulmonary following
possible Acute HFpEF
- BNP low but body habitus/BMI elevated
- CXR with pulm edema
- continue IV Lasix - requires intensive monitoring of I/O, weights, lytes
- Echo: Normal LV size and function without wall motion abnormalities. LVEF is 55-60% by visual estimation. Dilated right ventricle with reduced systolic function. RV free wall appears hypo/akinetic with hyperdynamic apex; this is suspicious for
Escobar's sign. Mild aortic regurgitation. Mild to moderate tricuspid regurgitation. Normal estimated PASP at 37 mmHg. Compared to prior from January 14, 2025, RV is dilated with reduced systolic function and suspicious for Escobar sign.
Additionally, valvular interrogation quality was difficult on today's study.
- check D. dimer and possible PE study
- Cardiology following
SONIA on Nocturnal O2
- CPAP planned; also having CPAP delivered next week to home
Obesity
- recommend exercise and consideration of GLP-1 agents given SONIA as well
HLD - statin
Anxiety/Depression
- Zoloft
DVT ppx: Lovenox
Code: Full
Anticipated Discharge: 24 - 48 hours
Subjective/Interval History
-
Date of Service: August 08, 2025
on 2L NC (uses O2 only at nightime for SONIA pending CPAP delivery next week)
denies cough
no fevers
Objective Data
-
Labs:
Laboratory Results
08/08/25
07:04
WBC 10.4
Hgb 12.0
Hct 36.8 L
Plt Count 326
Sodium 137
Potassium 4.3
Chloride 101
Carbon Dioxide 31 H
BUN 16
Creatinine 0.7
Glucose 153 H
Calcium 9.8
Vital Signs:
Vital Signs
Temp Pulse Resp BP Pulse Ox
98.1 F 101 22 135/78 91
08/08/25 11:36 08/08/25 11:36 08/08/25 11:36 08/08/25 11:36 08/08/25 11:36
I&O
08/07/25 08/08/25 08/09/25
06:59 06:59 06:59
Intake Total 0 / 0
Output Total 300 / 300
Balance -300 / -300
Physical Exam
-
General: No Apparent Distress and Obese
HEENT: Normocephalic and Atraumatic
Respiratory: Negative Wheezes
Cardiac: Regular Rhythm and S1/S2
GI: Soft
Musculoskeletal: No Edema
Neuro: AO x 3
Psych: Calm
Data Reviewed
-
Total Time Spent with Patient (in minutes): 42
Labs: Labs Reviewed by me
[2025-08-08 12:51] LABS: Venous Blood Gas B.E. 10.9 mmol/L (-4 to +4); Venous Blood Gas O2 Sat % 64.2 %
[2025-08-08 13:04] LABS: D-Dimer 0.74 ug/mlFEU (0.00-0.50)
--- NOTE | 2025-08-08 14:47 | CM ---
IA completed. IMM completed in ER. Lives alone in and apartment, no steps at entrance (ramps)Has a step-in Shower. Independent in ADLs and IADLs.NO Hx ionf VN or SNF. Has subsidized housing and SNAP benefit for food. Confirmed PCP, RX Insurance and
drug coverage.
PCP Bora Reina
Rx: [facility]
Has home O2 through [employer], uses it only at night at 2.5 liters, Has a concentrator; does no know the capacity. Has 2 portable tanks.
Was supposed to start using Cpap at home, still needs to pick it up. Pulmonary adding BiPap
Is on 2.5 LPM via N/C, no saturation charted at this time. Starting BiPap today
Plan: Home with O2 support
[2025-08-08] MEDS: LOVENOX 40 MG SC (17:39)
[2025-08-08] MEDS: SINGULAIR 10 MG PO (17:39)
[2025-08-08] MEDS: LIPITOR 40 MG PO (19:56)
[2025-08-09] VITALS (7 sets, daily range): BP systolic 120–142; BP diastolic 61–89; PULSE 2; BMI 39.5
[2025-08-09 07:15] LABS: Hematocrit 35.3 % (37.0-47.0); Hemoglobin 11.1 g/dL (12.0-16.0); Mean Corp Hgb Conc. 31.4 g/dL (33.0-37.0); Mean Corpuscular Volume 90.3 fL (81.0-99.0); Platelet Count 347 10^3/uL (130-400); Red Cell Dist. Width 12.7 % (11.5-14.5)
[2025-08-09] MEDS: DUONEB 3 ML INH ×3 (07:17→19:53)
[2025-08-09] MEDS: PULMICORT 0.5 MG INH ×2 (07:17→19:53)
[2025-08-09 07:33] LABS: Blood Urea Nitrogen 22 mg/dl (7-17); Calcium 10.0 mg/dl (8.4-10.2); Carbon Dioxide 34 mmol/L (22-30); Chloride 100 mmol/L (98-107); Estimated Creatinine Clearance 68 ml/min; Glucose 86 mg/dl (70-99); Potassium 3.6 mmol/L (3.5-5.1); Sodium 136 mmol/L (135-145); eGFR > 60.00
[2025-08-09] MEDS: DELTASONE 40 MG PO (08:11)
[2025-08-09] MEDS: TYLENOL 650 MG PO ×2 (08:11→20:32)
[2025-08-09] MEDS: MUCINEX 600 MG PO ×2 (08:11→13:29)
[2025-08-09] MEDS: DEMADEX 20 MG PO (08:11)
[2025-08-09] MEDS: VIBRAMYCIN 100 MG PO ×2 (08:11→20:33)
[2025-08-09] MEDS: ZOLOFT 50 MG PO (08:11)
[2025-08-09] MEDS: PROTONIX 40 MG PO ×2 (08:11→20:34)
--- NOTE | 2025-08-09 12:29 | W.PN.HOSP.TC ---
Addendum entered and electronically signed by Temitope Neal MD 08/09/25 12:48:
Patient is in need of oxygen at 2 liters/minute via nasal cannula continuously due to pulse oximetry of 85% on room air at rest. Oxygen will help to improve hypoxemia. Patient is mobile within the home. DuoNeb therapy has been tried and is
ineffective in treating hypoxemia related symptoms. Oxygen is needed to improve symptoms.
Original Note:
Today's Communication/Plan
-
increase pulm toilet measures
eventual home O2 testing pending on dc date
Assessment / Plan
Assessment / Plan
Assessment:
Acute on chronic respiratory failure
Acute COPD exacerbation-
- s/p IV steroids; now on oral steroids
- continue Duonebs prn/scheduled
- Budesonide
- Doxycycline course
- add Mucinex, 3% Saline nebs, Acapella/IS to improve pulm toilet
- consider VEST/chest PT
- Pulmonary following
possible Acute HFpEF
- BNP low but body habitus/BMI elevated
- CXR with pulm edema
- s/p IV Lasix course; now on Torsemide
- Echo: Normal LV size and function without wall motion abnormalities. LVEF is 55-60% by visual estimation. Dilated right ventricle with reduced systolic function. RV free wall appears hypo/akinetic with hyperdynamic apex; this is suspicious for
Escobar's sign. Mild aortic regurgitation. Mild to moderate tricuspid regurgitation. Normal estimated PASP at 37 mmHg. Compared to prior from January 14, 2025, RV is dilated with reduced systolic function and suspicious for Escobar sign.
Additionally, valvular interrogation quality was difficult on today's study.
- PE study negative
- Cardiology following
SONIA on Nocturnal O2
- continue in hospital BiPAP planned; also having CPAP delivered next week to home
Obesity
- recommend exercise and consideration of GLP-1 agents given SONIA as well
HLD - statin
Anxiety/Depression
- Zoloft
DVT ppx: Lovenox
Code: Full
Anticipated Discharge: > 48 hours
Subjective/Interval History
-
Date of Service: August 09, 2025
cough with minimal production
Objective Data
-
Labs:
Laboratory Results
08/09/25
06:11
WBC 17.5 H
Hgb 11.1 L
Hct 35.3 L
Plt Count 347
Sodium 136
Potassium 3.6
Chloride 100
Carbon Dioxide 34 H
BUN 22 H
Creatinine 0.8
Glucose 86
Calcium 10.0
Vital Signs:
Vital Signs
Temp Pulse Resp BP Pulse Ox
97.2 F 89 16 142/75 90
08/09/25 11:00 08/09/25 11:00 08/09/25 11:00 08/09/25 11:00 08/09/25 11:00
I&O
08/08/25 08/09/25 08/10/25
06:59 06:59 06:59
Intake Total 0 / 0 720 / 720 780 / 780
Output Total 300 / 300 2650 / 2650 150 / 150
Balance -300 / -300 -1930 / -1930 630 / 630
Physical Exam
-
General: No Apparent Distress
HEENT: Normocephalic and Atraumatic
Respiratory: Rhonchi
Cardiac: Regular Rhythm and S1/S2
GI: Soft and Nontender
Neuro: AO x 3
Psych: Calm
Data Reviewed
-
Total Time Spent with Patient (in minutes): 41
Labs: Labs Reviewed by me
[2025-08-09] MEDS: SODIUM CHLORIDE 3% FOR INHALATION 1 VIAL INH ×2 (13:14→19:53)
[2025-08-09] MEDS: TESSALON PERLES 200 MG PO (13:29)
--- NOTE | 2025-08-09 16:22 | W.PN.PUL3 ---
Today's Communication / Plan
-
BiPAP with sleep
Prednisone taper, decreasing as she clinically improves
Mucolytics
Nebulized 3% for pulmonary toilet purposes
Encourage incentive spirometer
Diuresis with torsemide
DuoNebs + budesonide
I do not appreciate any obvious pneumonia on CT chest, as consolidative opacities are likely due to airway collapse/low lung volumes/segmental atelectasis. Okay for short course of Doxy
Pulmonary service will continue to follow
Assessment
-
Patient is a pleasant 74 years old with a history of chronic hypoxic respiratory failure, COPD, home oxygen, hypertension, obesity, fibromyalgia who came to the ER with shortness of breath and lower extremity edema. She was seen multiple times in
the past in [facility] ER and instructed to take diuretics. She has a history of cough variant asthma, SONIA not on CPAP, chronic bronchitis and follows [facility] Dr Sorto, last seen on 08/01/25 in the office. She usually uses oxygen at night, yesterday she
noted that her oxygen dropped to 83- 86%, came to the ER today. BNP negative, troponin negative, chest x-ray showed mild to moderate acute interstitial and alveolar cardiogenic pulmonary edema, patient received steroid and breathing treatment in the
ER. We are consulted for evaluation.
Acute hypoxic respiratory failure
Acute heart failure exacerbation
Bibasilar atelectasis likely contributing to hypoxemia
Noncompliance
#Moderate size hiatal hernia with adjacent subsegmental atelectasis
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
Cough variant asthma
H/o noncompliance with inhaler regimen
CT with bibasilar linear atelectasis
History of frequent steroid use
RLD with chronic SOB-TLC has decreased by half a liter (multifactorial given BMI and large HH)
Morbid obesity with persistent weight gain and inactivity
Mixed simple and mucopurulent chronic bronchitis
Severe SONIA- AHI 91 with QUYEN of 81%, not yet on CPAP
Osteopenia
Lumbago with sciatica
Thoracic aorta atherosclerosis
Generalized anxiety disorder
Moderate aortic regurgitation
Gastro-esophageal reflux disease
Antineutrophil cytoplasmic antibody (ANCA) positive
Hiatal hernia, moderate to large size
Plan
Hypoxemia noted on arrival, she is placed on supplemental o2
Uses O2 at night at baseline
Home O2 evaluation eventually
Prior history of lung disease is noted including cough variant asthma, chronic bronchitis, severe SONIA, RLD
Reviewed outpatient records wtih reduced TLC recently
This is likely multifactorial given her BMI, untreated apnea, large HH, sedentary lifestyle and possible mild subacute HF
CXR/CT obtained indicating congestion but this can be exacerbated on low lung volumes and in obese patients
Other imaging reviewed--CT in past largely negative but does show chronic large HH
Reviewed treatment including aggressive IS, rehab
Continue with prednisone, currently at 40 mg daily and would wean as she clinically improves
She is treated frequently with PO prednisone as OP, I think we can taper rapidly to off as this may not benefit her significantly
proBNP negative on admission
Now on torsemide; trend I/O and daily weight
Prior ECHO results are reviewed indicating normal function
Cards following, appreciate recs
SONIA history, not yet set up on CPAP, this was scheduled for next
Dr. Osullivan added BIPAP while inpatient, as her AHI is very severe - -> started 07/20 on 08/08/2025 which she tolerated; continue with BiPAP with sleep
Suspect concurrent OHS, VBG on afternoon of 08/08/2025 shows pCO2 56, and this is consistent with OHS
O2 at night w/o PAP likely exacerbating CO2 retention
Weight loss measures recommended
Obesity likely contributing to respiratory symptoms
Zepbound had been previously discussed with her as OP
Will need outpatient pulmonary evaluation in our office for PFTs and 6MWT
Reviewed with patient
Discussed with care team as well
We will follow
Diagnostic Data
CXR 08/07/25- 1. Mild to moderate acute interstitial and alveolar cardiogenic pulmonary edema.
2. Mild cardiomegaly.
3. Mild scarring in the lingula.
4. Moderate-sized paraesophageal hiatal hernia.
CT Chest 10/28/24- 1. Stable right lower lobe scarring. No pulmonary nodules, areas of airspace disease, pleural effusions, pericardial effusions or pathologically enlarged noncalcified lymph nodes in the thorax. No pneumothorax. Moderate to large
hiatal hernia, slightly progressed from 2018.
ECHO 01/14/25- Mildly dilated left ventricle (ИРИНА 5.5 cm). Left ventricular ejection fraction is 60-65%. Normal regional wall motion. Normal right ventricular size and function. Mild to moderate aortic regurgitation. Mild to moderate tricuspid
regurgitation. Estimated pulmonary artery pressure of 30-35 mmHg. No significant change in overall cardiac function since the prior study of 04/24/2023.
Reports and relevant images were personally reviewed.
Total time spent on this consultation __39__ minutes which includes review of history, physical exam, medications, laboratory data, personal review of imaging, extensive review of outpatient records, discussion with care team and respiratory therapy.
Subjective Data
-
Date of Service:
Date of Service: August 09, 2025
Chief Complaint: Pulmonary Follow Up
Subjective:
Seen today (late note entry). Afebrile overnight. Saturating 97% on 2.5 L/min.
Review of Systems
General: Other (Negative unless mentioned above)
Objective Data
Data Reviewed
Vital Signs / I&O / Oxygen:
Vital Signs
Temp Pulse Resp BP Pulse Ox
97.7 F 72 18 137/76 92
08/09/25 07:00 08/09/25 07:17 08/09/25 07:17 08/09/25 08:11 08/09/25 07:17
Intake and Output
08/08/25 08/09/25 08/10/25
06:59 06:59 06:59
Intake Total 0 / 0 720 / 720 780 / 780
Output Total 300 / 300 2650 / 2650
Balance -300 / -300 -1930 / -1930 780 / 780
SaO2 92
Nasal Cannula flow liters per 2.5
minute
Physical Exam
General: Respiratory Distress (negative), Comfortable and Chills (negative)
HEENT: Normocephalic and Anicteric
Cardiovascular: S1-S2 and Peripheral Edema (negative)
Respiratory: Wheeze, Rhonchi (Bilaterally upon deep inspiration) and Non-Labored Respirations
GI: Soft, Distended (Abdominal obesity), Non Tender and Normal Bowel Sounds
Neurology: Awake and Tremors (negative)
Skin: Warm, Dry and Cyanosis (negative)
Labs/Micro/Reports
Lab Data
08/09/25 06:11
08/09/25 06:11
Microbiology
08/08/25 15:15 Sputum Gram Stain - Preliminary
08/07/25 16:33 Nasal Swab Influenza Types A & B (CHARITO) - Final
Negative for Influenza A & B, NAAT
Negative results must be combined with clinical observations
and patient history.
Nucleic Acid Amplification test (NAAT)performed on the
[facility] platform.
[2025-08-09] MEDS: LOVENOX 40 MG SC (16:54)
[2025-08-09] MEDS: SINGULAIR 10 MG PO (16:54)
[2025-08-09] MEDS: MUCINEX 1200 MG PO (20:33)
[2025-08-09] MEDS: LIPITOR 40 MG PO (20:34)
[2025-08-09] MEDS: PHENERGAN WITH CODEINE SYRUP 5 ML PO (23:12)
[2025-08-10] VITALS (7 sets, daily range): BP systolic 117–154; BP diastolic 58–93; PULSE 2–80; BMI 39.3
[2025-08-10] MEDS: PHENERGAN WITH CODEINE SYRUP 5 ML PO ×2 (05:23→14:21)
[2025-08-10 07:19] LABS: Hematocrit 33.0 % (37.0-47.0); Hemoglobin 10.6 g/dL (12.0-16.0); Mean Corp Hgb Conc. 32.1 g/dL (33.0-37.0); Mean Corpuscular Volume 87.5 fL (81.0-99.0); Platelet Count 349 10^3/uL (130-400); Red Cell Dist. Width 12.7 % (11.5-14.5)
[2025-08-10 07:25] LABS: Blood Urea Nitrogen 24 mg/dl (7-17); Calcium 9.4 mg/dl (8.4-10.2); Carbon Dioxide 33 mmol/L (22-30); Chloride 98 mmol/L (98-107); Estimated Creatinine Clearance 61 ml/min; Glucose 84 mg/dl (70-99); Potassium 3.2 mmol/L (3.5-5.1); Sodium 135 mmol/L (135-145); eGFR > 60.00
[2025-08-10] MEDS: DUONEB 3 ML INH ×3 (07:39→19:50)
[2025-08-10] MEDS: SODIUM CHLORIDE 3% FOR INHALATION 1 VIAL INH ×3 (07:40→19:53)
[2025-08-10] MEDS: PULMICORT 0.5 MG INH ×2 (07:40→19:50)
[2025-08-10] MEDS: MUCINEX 1200 MG PO ×2 (08:53→19:53)
[2025-08-10] MEDS: ZOLOFT 50 MG PO (08:53)
[2025-08-10] MEDS: DELTASONE 40 MG PO (08:53)
[2025-08-10] MEDS: PROTONIX 40 MG PO ×2 (08:53→19:53)
[2025-08-10] MEDS: VIBRAMYCIN 100 MG PO ×2 (08:53→19:53)
[2025-08-10] MEDS: DEMADEX 20 MG PO (08:53)
[2025-08-10] MEDS: TYLENOL 650 MG PO ×2 (08:54→21:50)
[2025-08-10] MEDS: KCL 40 MEQ PO (09:00)
--- NOTE | 2025-08-10 11:42 | W.PN.HOSP.TC ---
Today's Communication/Plan
-
continue pulmonary toileting measures
DC planning in 24 hours if home O2 (new settings/delivery can be setup) -d/w CM
Assessment / Plan
Assessment / Plan
Assessment:
Acute on chronic respiratory failure
Acute COPD exacerbation-
- s/p IV steroids; now on oral steroids
- continue Duonebs prn/scheduled
- Budesonide
- Doxycycline course
- continue Mucinex, 3% Saline nebs, Acapella/IS to improve pulm toilet
- consider VEST/chest PT
- Pulmonary following
possible Acute HFpEF
- BNP low but body habitus/BMI elevated
- CXR with pulm edema
- s/p IV Lasix course; now on Torsemide
- Echo: Normal LV size and function without wall motion abnormalities. LVEF is 55-60% by visual estimation. Dilated right ventricle with reduced systolic function. RV free wall appears hypo/akinetic with hyperdynamic apex; this is suspicious for
Escobar's sign. Mild aortic regurgitation. Mild to moderate tricuspid regurgitation. Normal estimated PASP at 37 mmHg. Compared to prior from January 14, 2025, RV is dilated with reduced systolic function and suspicious for Escobar sign.
Additionally, valvular interrogation quality was difficult on today's study.
- PE study negative
- Cardiology following
Hypokalemia - replete now and add daily dosing
SONIA on Nocturnal O2
- continue in hospital BiPAP planned; also having CPAP delivered next week to home
Obesity
- recommend exercise and consideration of GLP-1 agents given SONIA as well
HLD - statin
Anxiety/Depression
- Zoloft
DVT ppx: Lovenox
Code: Full
Anticipated Discharge: > 48 hours
Subjective/Interval History
-
Date of Service: August 10, 2025
resting comfortably, no complaints at present
reports she feels like mucous might be slightly more loose, but still hoping to expectorate more
SOB with coughing spells
Objective Data
-
Labs:
Laboratory Results
08/10/25
05:55
WBC 14.2 H
Hgb 10.6 L
Hct 33.0 L
Plt Count 349
Sodium 135
Potassium 3.2 L
Chloride 98
Carbon Dioxide 33 H
BUN 24 H
Creatinine 0.9
Glucose 84
Calcium 9.4
Vital Signs:
Vital Signs
Temp Pulse Resp BP Pulse Ox
98 F 81 18 122/67 94
08/10/25 07:00 08/10/25 08:53 08/10/25 07:44 08/10/25 08:53 08/10/25 11:08
I&O
08/09/25 08/10/25 08/11/25
06:59 06:59 06:59
Intake Total 720 / 720 1680 / 1680
Output Total 2650 / 2650 3000 / 3000
Balance -1930 / -1930 -1320 / -1320
Physical Exam
-
General: No Apparent Distress
HEENT: Normocephalic and Atraumatic
Respiratory: Negative Wheezes
Cardiac: Regular Rhythm and S1/S2
GI: Soft and Nontender
Musculoskeletal: No Edema
Neuro: AO x 3
Psych: Calm
Data Reviewed
-
Total Time Spent with Patient (in minutes): 41
Labs: Labs Reviewed by me
--- NOTE | 2025-08-10 12:00 | CM ---
Met with patient at bedside. Per Attending oxygen need will be continuously not just at night.
Patient has a Compressor but does not have a portable O2 device
Case Management will follow up w/ patient's O2 vendor tomorrow
--- NOTE | 2025-08-10 16:51 | W.PN.PUL3 ---
Today's Communication / Plan
-
BiPAP with sleep
Prednisone taper, decreasing as she clinically improves
Outpatient follow up with [facility] as she may be a candidate for biologic (prior absolute eos were 400 on 07/29/2025) to help get her off systemic steroid
Mucolytics
Nebulized 3% for pulmonary toilet purposes
Encourage incentive spirometer
Diuresis with torsemide
DuoNebs + budesonide
I do not appreciate any obvious pneumonia on CT chest, as consolidative opacities are likely due to airway collapse/low lung volumes/segmental atelectasis. Okay for short course of Doxy
Pulmonary service will continue to follow
Assessment
-
Patient is a pleasant 74 years old with a history of chronic hypoxic respiratory failure, COPD, home oxygen, hypertension, obesity, fibromyalgia who came to the ER with shortness of breath and lower extremity edema. She was seen multiple times in
the past in [facility] ER and instructed to take diuretics. She has a history of cough variant asthma, SONIA not on CPAP, chronic bronchitis and follows [facility] Dr Sorto, last seen on 08/01/25 in the office. She usually uses oxygen at night, yesterday she
noted that her oxygen dropped to 83- 86%, came to the ER today. BNP negative, troponin negative, chest x-ray showed mild to moderate acute interstitial and alveolar cardiogenic pulmonary edema, patient received steroid and breathing treatment in the
ER. We are consulted for evaluation.
Acute hypoxic respiratory failure due to asthma exacerbation
Acute heart failure exacerbation
Bibasilar atelectasis likely contributing to hypoxemia
Noncompliance
Moderate size hiatal hernia with adjacent subsegmental atelectasis
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
Cough variant asthma
H/o noncompliance with inhaler regimen
CT with bibasilar linear atelectasis
History of frequent steroid use
RLD with chronic SOB-TLC has decreased by half a liter (multifactorial given BMI and large HH)
Morbid obesity with persistent weight gain and inactivity
Mixed simple and mucopurulent chronic bronchitis
Severe SONIA- AHI 91 with QUYEN of 81%, not yet on CPAP
Osteopenia
Lumbago with sciatica
Thoracic aorta atherosclerosis
Generalized anxiety disorder
Moderate aortic regurgitation
Gastro-esophageal reflux disease
Antineutrophil cytoplasmic antibody (ANCA) positive
Hiatal hernia, moderate to large size
Plan
Hypoxemia noted on arrival, she was placed on supplemental o2
Currently on 2 L/min nasal cannula
Uses O2 at night at baseline
Home O2 evaluation performed yesterday on 08/09, showing O2-saturation of 92% on room air which dropped to 85% with activity after walking 50 feet; she required 3 L/min to keep saturations >88%. Ultimately, she will need 3 L/min with activity, room
air at rest based on the study.
Prior history of lung disease is noted including cough variant asthma, chronic bronchitis, severe SONIA, RLD
Reviewed outpatient records wtih reduced TLC recently
This is likely multifactorial given her BMI, untreated apnea, large HH, sedentary lifestyle and possible mild subacute HF
CXR/CT obtained indicating congestion but this can be exacerbated on low lung volumes and in obese patients
Other imaging reviewed--CT in past largely negative but does show chronic large HH
Reviewed treatment including aggressive IS, rehab
Continue with prednisone, currently at 40 mg daily and would wean as she clinically improves
She is treated frequently with PO prednisone as OP, I think we can taper rapidly to off as this may not benefit her significantly
She does have a history of eosinophilia and has already been approved for Dupixent as an outpatient � advised to discuss this with Dr. Sorto in the office
She also follows with rheumatology although there has been low suspicion for vasculitis or lupus. Also, DAVID, MS-3 and MPO antibodies are all negative
proBNP negative on admission
Now on torsemide; trend I/O and daily weight
Prior ECHO results are reviewed indicating normal function
Cards following, appreciate recs
SONIA history, not yet set up on CPAP, this was scheduled for next
Dr. Osullivan added BIPAP while inpatient, as her AHI is very severe - -> started 07/20 on 08/08/2025 which she tolerated; continue with BiPAP with sleep
Suspect concurrent OHS, VBG on afternoon of 08/08/2025 shows pCO2 56, and this is consistent with OHS
O2 at night w/o PAP likely exacerbating CO2 retention
Weight loss measures recommended
Obesity likely contributing to respiratory symptoms
Zepbound had been previously discussed with her as OP
Will need outpatient pulmonary evaluation in our office for PFTs and 6MWT
Reviewed with patient
Discussed with care team as well
We will follow
Diagnostic Data
CXR 08/07/25- 1. Mild to moderate acute interstitial and alveolar cardiogenic pulmonary edema.
2. Mild cardiomegaly.
3. Mild scarring in the lingula.
4. Moderate-sized paraesophageal hiatal hernia.
CT Chest 10/28/24- 1. Stable right lower lobe scarring. No pulmonary nodules, areas of airspace disease, pleural effusions, pericardial effusions or pathologically enlarged noncalcified lymph nodes in the thorax. No pneumothorax. Moderate to large
hiatal hernia, slightly progressed from 2018.
ECHO 01/14/25- Mildly dilated left ventricle (ИРИНА 5.5 cm). Left ventricular ejection fraction is 60-65%. Normal regional wall motion. Normal right ventricular size and function. Mild to moderate aortic regurgitation. Mild to moderate tricuspid
regurgitation. Estimated pulmonary artery pressure of 30-35 mmHg. No significant change in overall cardiac function since the prior study of 04/24/2023.
Reports and relevant images were personally reviewed.
Total time spent on this consultation __42__ minutes which includes review of history, physical exam, medications, laboratory data, personal review of imaging, extensive review of outpatient records, discussion with care team and respiratory therapy.
Subjective Data
-
Date of Service:
Date of Service: August 10, 2025
Chief Complaint: Pulmonary Follow Up
Subjective:
Patient seen and evaluated today at bedside (late note entry). Codeine helped her last night as she was coughing much less. Currently on 2 L/min nasal cannula. She still feels short of breath with exertion. Used BiPAP overnight on 07/20 bled with
4 L/min. She had to use a smaller mask which she tolerated well after this change - removed it after few hours.
Review of Systems
General: Other (Negative unless mentioned above)
Objective Data
Data Reviewed
Vital Signs / I&O / Oxygen:
Vital Signs
Temp Pulse Resp BP Pulse Ox
98 F 72 24 138/74 94
08/10/25 03:20 08/10/25 03:20 08/10/25 03:20 08/10/25 03:20 08/10/25 03:44
Intake and Output
08/09/25 08/10/25 08/11/25
06:59 06:59 06:59
Intake Total 720 / 720 1680 / 1680
Output Total 2650 / 2650 3000 / 3000
Balance -1930 / -1930 -1320 / -1320
SaO2 94
Nasal Cannula flow liters per 2
minute
Physical Exam
General: Respiratory Distress (negative), Comfortable and Chills (negative)
HEENT: Normocephalic, Anicteric and Other (thick neck)
Cardiovascular: S1-S2 and Peripheral Edema (negative)
Respiratory: Wheeze ([place] upon expiration bilaterally), Rhonchi (Bilaterally upon deep inspiration), Non-Labored Respirations and Other (Coarse breath sounds heard bilaterally)
GI: Soft, Distended (Abdominal obesity), Non Tender and Normal Bowel Sounds
Neurology: Awake, Alert, Oriented and Tremors (negative)
Skin: Warm, Dry and Cyanosis (negative)
Labs/Micro/Reports
Lab Data
08/10/25 05:55
08/10/25 05:55
Microbiology
08/08/25 15:15 Sputum Respiratory Culture - Preliminary
08/08/25 15:15 Sputum Gram Stain - Preliminary
08/07/25 16:33 Nasal Swab Influenza Types A & B (CHARITO) - Final
Negative for Influenza A & B, NAAT
Negative results must be combined with clinical observations
and patient history.
Nucleic Acid Amplification test (NAAT)performed on the
[employer] platform.
[2025-08-10] MEDS: SINGULAIR 10 MG PO (17:06)
[2025-08-10] MEDS: LOVENOX 40 MG SC (17:06)
[2025-08-10] MEDS: LIPITOR 40 MG PO (19:54)
[2025-08-11] VITALS (8 sets, daily range): BP systolic 131–146; BP diastolic 67–85; PULSE 2–85; BMI 39.1
[2025-08-11] MEDS: DUONEB 3 ML INH ×4 (07:17→19:16)
[2025-08-11] MEDS: PULMICORT 0.5 MG INH ×2 (07:17→19:16)
[2025-08-11] MEDS: SODIUM CHLORIDE 3% FOR INHALATION 1 VIAL INH (07:17)
[2025-08-11 07:54] LABS: Hematocrit 34.3 % (37.0-47.0); Hemoglobin 11.2 g/dL (12.0-16.0); Mean Corp Hgb Conc. 32.7 g/dL (33.0-37.0); Mean Corpuscular Volume 89.1 fL (81.0-99.0); Platelet Count 327 10^3/uL (130-400); Red Cell Dist. Width 12.5 % (11.5-14.5)
[2025-08-11 08:15] LABS: Blood Urea Nitrogen 25 mg/dl (7-17); Calcium 9.3 mg/dl (8.4-10.2); Carbon Dioxide 34 mmol/L (22-30); Chloride 100 mmol/L (98-107); Estimated Creatinine Clearance 60 ml/min; Glucose 89 mg/dl (70-99); Potassium 3.3 mmol/L (3.5-5.1); Sodium 135 mmol/L (135-145); eGFR > 60.00
[2025-08-11] MEDS: MUCINEX 1200 MG PO ×2 (08:48→19:53)
[2025-08-11] MEDS: PROTONIX 40 MG PO ×2 (08:48→19:53)
[2025-08-11] MEDS: DELTASONE 40 MG PO ×2 (08:49→19:53)
[2025-08-11] MEDS: KCL 40 MEQ PO (08:49)
[2025-08-11] MEDS: VIBRAMYCIN 100 MG PO ×2 (08:49→19:53)
[2025-08-11] MEDS: ZOLOFT 50 MG PO (08:49)
[2025-08-11] MEDS: KCL 20 MEQ PO ×2 (08:50→20:10)
[2025-08-11] MEDS: DEMADEX 20 MG PO (08:50)
[2025-08-11] MEDS: SENOKOT-S 1 TABLET PO (08:55)
--- NOTE | 2025-08-11 09:39 | W.PN.HOSP.TC ---
Today's Communication/Plan
-
add Vest therapy
follow pulm recs
add humidification for nosebleeds while on O2
Assessment / Plan
Assessment / Plan
Assessment:
Acute on chronic respiratory failure
Acute COPD exacerbation-
- s/p IV steroids; now on oral steroids
- continue Duonebs prn/scheduled
- Budesonide
- Doxycycline course
- continue Mucinex, 3% Saline nebs, Acapella/IS to improve pulm toilet
- add VEST therapy
- Pulmonary following
possible Acute HFpEF
- BNP low but body habitus/BMI elevated
- CXR with pulm edema
- s/p IV Lasix course; now on Torsemide
- Echo: Normal LV size and function without wall motion abnormalities. LVEF is 55-60% by visual estimation. Dilated right ventricle with reduced systolic function. RV free wall appears hypo/akinetic with hyperdynamic apex; this is suspicious for
Escobar's sign. Mild aortic regurgitation. Mild to moderate tricuspid regurgitation. Normal estimated PASP at 37 mmHg. Compared to prior from January 14, 2025, RV is dilated with reduced systolic function and suspicious for Escobar sign.
Additionally, valvular interrogation quality was difficult on today's study.
- PE study negative
- Cardiology following
Hypokalemia - continue daily dosing
SONIA on Nocturnal O2
- continue in hospital BiPAP planned; also having CPAP delivered next week to home
Obesity
- recommend exercise and consideration of GLP-1 agents given SONIA as well
HLD - statin
Anxiety/Depression
- Zoloft
Nosebleed in setting of O2
- add humidification
DVT ppx: Lovenox
Code: Full
Anticipated Discharge: > 48 hours
Subjective/Interval History
-
Date of Service: August 11, 2025
reports some slight loosening of mucous but remains SOB/winded/diaphoretic with exertion (such as using bathroom/BM this AM)
denies chest pain
also bloody nose in setting of O2
Objective Data
-
Labs:
Laboratory Results
08/11/25
07:12
WBC 11.4 H
Hgb 11.2 L
Hct 34.3 L
Plt Count 327
Sodium 135
Potassium 3.3 L
Chloride 100
Carbon Dioxide 34 H
BUN 25 H
Creatinine 0.9
Glucose 89
Calcium 9.3
Vital Signs:
Vital Signs
Temp Pulse Resp BP Pulse Ox
96.7 F L 92 18 136/75 91
08/11/25 07:20 08/11/25 08:50 08/11/25 07:24 08/11/25 08:50 08/11/25 07:24
I&O
08/10/25 08/11/25 08/12/25
06:59 06:59 06:59
Intake Total 1680 / 1680 480 / 480
Output Total 3000 / 3000 1900 / 1900
Balance -1320 / -1320 -1420 / -1420
Physical Exam
-
General: No Apparent Distress
HEENT: Normocephalic and Atraumatic
Respiratory: Wheezes (faint end expiratory), Rhonchi and Decreased Breath Sounds (congested breath sounds)
Cardiac: Regular Rhythm and S1/S2
GI: Soft and Nontender
Genito-urinary: No Costovertebral Tender
Neuro: AO x 3
Psych: Calm
Data Reviewed
-
Total Time Spent with Patient (in minutes): 42
Labs: Labs Reviewed by me
--- NOTE | 2025-08-11 12:58 | W.PN.PUL3 ---
Today's Communication / Plan
-
- Change DuoNeb to nebulized 4 times daily
- Increase prednisone to 40 mg p.o. twice daily
- Discontinue hypertonic saline in view of persistent bronchospasm
Assessment
-
Patient is a pleasant 74 years old with a history of chronic hypoxic respiratory failure, COPD, home oxygen, hypertension, obesity, fibromyalgia who came to the ER with shortness of breath and lower extremity edema. She was seen multiple times in
the past in [facility] ER and instructed to take diuretics. She has a history of cough variant asthma, SONIA not on CPAP, chronic bronchitis and follows [facility] Dr Sorto, last seen on 08/01/25 in the office. She usually uses oxygen at night, yesterday she
noted that her oxygen dropped to 83- 86%, came to the ER today. BNP negative, troponin negative, chest x-ray showed mild to moderate acute interstitial and alveolar cardiogenic pulmonary edema, patient received steroid and breathing treatment in the
ER. We are consulted for evaluation.
Acute hypoxic respiratory failure due to Asthma/COPD exacerbation
Chronic compensated hypercapnia
Acute heart failure exacerbation
Bibasilar atelectasis likely contributing to hypoxemia
Moderate size hiatal hernia with adjacent subsegmental atelectasis
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
Cough variant asthma
H/o noncompliance with inhaler regimen
CT with bibasilar linear atelectasis
History of frequent steroid use
RLD with chronic SOB-TLC has decreased by half a liter (multifactorial given BMI and large HH)
Morbid obesity with persistent weight gain and inactivity
Mixed simple and mucopurulent chronic bronchitis
Severe SONIA- AHI 91 with QUYEN of 81%, not yet on CPAP
Osteopenia
Lumbago with sciatica
Thoracic aorta atherosclerosis
Generalized anxiety disorder
Moderate aortic regurgitation
Gastro-esophageal reflux disease
Antineutrophil cytoplasmic antibody (ANCA) positive
Hiatal hernia, moderate to large size
Plan
Hypoxemia noted on arrival, she was placed on supplemental o2
Uses O2 at night at baseline, titrate to SpO2 > 89%
Prior history of lung disease is noted including cough variant asthma, chronic bronchitis, severe SONIA, RLD
Reviewed outpatient records wtih reduced TLC recently
This is likely multifactorial given her BMI, untreated apnea, large HH, sedentary lifestyle and possible mild subacute HF
CXR/CT obtained indicating congestion but this can be exacerbated on low lung volumes and in obese patients
Other imaging reviewed--CT in past largely negative but does show chronic large HH
Reviewed treatment including aggressive IS, rehab
In view of persistent wheezing, increase prednisone to 40 mg twice daily, increase DuoNeb to 4 times daily, continue DuoNeb.
She does have a history of eosinophilia and has already been approved for Dupixent as an outpatient � advised to discuss this with Dr. Sorto in the office
She also follows with rheumatology although there has been low suspicion for vasculitis or lupus. Also, DAVID, [place]-3 and MPO antibodies are all negative
proBNP negative on admission
Now on torsemide; trend I/O and daily weight
Prior ECHO results are reviewed indicating normal function
Cards following, appreciate recs
SONIA history, not yet set up on CPAP, this was scheduled for next
Dr. Osullivan added BIPAP while inpatient, as her AHI is very severe - -> started 07/20 on 08/08/2025 which she tolerated; continue with BiPAP with sleep
Suspect concurrent OHS, VBG on afternoon of 08/08/2025 shows pCO2 56, and this is consistent with OHS
Chronic compensated hypercapnia.
Weight loss measures recommended
Obesity likely contributing to respiratory symptoms
Zepbound had been previously discussed with her as OP
Will need outpatient pulmonary evaluation in our office for PFTs and 6MWT
Reviewed with patient
Discussed with care team as well
We will follow
Diagnostic Data
CXR 08/07/25- 1. Mild to moderate acute interstitial and alveolar cardiogenic pulmonary edema.
2. Mild cardiomegaly.
3. Mild scarring in the lingula.
4. Moderate-sized paraesophageal hiatal hernia.
CT Chest 10/28/24- 1. Stable right lower lobe scarring. No pulmonary nodules, areas of airspace disease, pleural effusions, pericardial effusions or pathologically enlarged noncalcified lymph nodes in the thorax. No pneumothorax. Moderate to large
hiatal hernia, slightly progressed from 2018.
ECHO 01/14/25- Mildly dilated left ventricle (ИРИНА 5.5 cm). Left ventricular ejection fraction is 60-65%. Normal regional wall motion. Normal right ventricular size and function. Mild to moderate aortic regurgitation. Mild to moderate tricuspid
regurgitation. Estimated pulmonary artery pressure of 30-35 mmHg. No significant change in overall cardiac function since the prior study of 04/24/2023.
Reports and relevant images were personally reviewed.
Total time spent on this consultation __38__ minutes which includes review of history, physical exam, medications, laboratory data, personal review of imaging, extensive review of outpatient records, discussion with care team and respiratory therapy.
Subjective Data
-
Date of Service:
Date of Service: August 11, 2025
Chief Complaint: Pulmonary Follow Up
Subjective:
Patient comfortably sitting in bed in no acute distress. Reports feeling marginally better
Review of Systems
Genitourinary: Other (No new pulmonary symptoms reported)
Objective Data
Data Reviewed
Vital Signs / I&O / Oxygen:
Vital Signs
Temp Pulse Resp BP Pulse Ox
99.0 F 84 18 136/74 92
08/11/25 11:10 08/11/25 11:40 08/11/25 11:40 08/11/25 11:10 08/11/25 11:40
Intake and Output
08/10/25 08/11/25 08/12/25
06:59 06:59 06:59
Intake Total 1680 / 1680 480 / 480
Output Total 3000 / 3000 1900 / 1900
Balance -1320 / -1320 -1420 / -1420
SaO2 92
Nasal Cannula flow liters per 2.5
minute
Physical Exam
General: Respiratory Distress (negative), Comfortable and Chills (negative)
HEENT: Normocephalic, Anicteric and Other (thick neck)
Cardiovascular: S1-S2 and Peripheral Edema (negative)
Respiratory: Wheeze (Bilateral end expiratory wheezing), Non-Labored Respirations and Other (Coarse breath sounds heard bilaterally)
GI: Soft, Distended (Abdominal obesity), Non Tender and Normal Bowel Sounds
Neurology: Awake, Alert, Oriented and Tremors (negative)
Skin: Warm, Dry and Cyanosis (negative)
Labs/Micro/Reports
Lab Data
08/11/25 07:12
08/11/25 07:12
Microbiology
08/08/25 15:15 Sputum Respiratory Culture - Final
Usual Respiratory Jaky
08/08/25 15:15 Sputum Gram Stain - Final
[2025-08-11] MEDS: LOVENOX 40 MG SC (16:59)
[2025-08-11] MEDS: SINGULAIR 10 MG PO (17:00)
--- NOTE | 2025-08-11 18:04 | CM ---
Met with pt at bedside. On O2. Stated she was supposed to start using CPAP at home tomorrow. Pt will try to have family member bring in portable tank from home to the hospital. Will be transported home by son when stable.
[facility] [phone] for O2 needs
Plan; Home with continuous O2
[2025-08-11] MEDS: LIPITOR 40 MG PO (19:53)
[2025-08-11] MEDS: KCL PO (19:53)
[2025-08-12] VITALS (8 sets, daily range): BP systolic 124–163; BP diastolic 62–76; PULSE 2–75; BMI 38.8
[2025-08-12] MEDS: PULMICORT 0.5 MG INH ×2 (07:36→19:34)
[2025-08-12] MEDS: DUONEB 3 ML INH ×4 (07:36→19:34)
[2025-08-12 07:55] LABS: Hematocrit 37.3 % (37.0-47.0); Hemoglobin 11.9 g/dL (12.0-16.0); Mean Corp Hgb Conc. 31.9 g/dL (33.0-37.0); Mean Corpuscular Volume 88.8 fL (81.0-99.0); Platelet Count 369 10^3/uL (130-400); Red Cell Dist. Width 12.3 % (11.5-14.5)
[2025-08-12 08:27] LABS: Blood Urea Nitrogen 21 mg/dl (7-17); Calcium 9.9 mg/dl (8.4-10.2); Carbon Dioxide 32 mmol/L (22-30); Chloride 100 mmol/L (98-107); Estimated Creatinine Clearance 77 ml/min; Glucose 112 mg/dl (70-99); Potassium 4.1 mmol/L (3.5-5.1); Sodium 135 mmol/L (135-145); eGFR > 60.00
[2025-08-12] MEDS: PROTONIX 40 MG PO ×2 (08:33→20:12)
[2025-08-12] MEDS: MUCINEX 1200 MG PO ×2 (08:33→20:12)
[2025-08-12] MEDS: KCL 20 MEQ PO ×2 (08:33→20:12)
[2025-08-12] MEDS: DEMADEX 20 MG PO (08:34)
[2025-08-12] MEDS: DELTASONE 40 MG PO ×2 (08:34→20:13)
[2025-08-12] MEDS: VIBRAMYCIN 100 MG PO (08:34)
[2025-08-12] MEDS: ZOLOFT 50 MG PO (08:34)
--- NOTE | 2025-08-12 10:47 | CM ---
Addendum entered by Marika Man 08/12/25 14:31:
Pt performed well on her home O2 eval today. Dr. Neal made aware. He wants the pt to continue using O2 at 2LPM at night only. [facility] made aware of new oxygen order for discharge.
Original Note:
Home O2 set up with [facility]. Respiratory order faxed.They can deliver portable today to bedside. Can also supply a portable concentrator.
Plan: Home with O2 support
--- NOTE | 2025-08-12 11:01 | W.PN.HOSP.TC ---
Today's Communication/Plan
-
monitor x 24 hours per pulmonary prior to dc
home O2 is setup
Assessment / Plan
Assessment / Plan
Assessment:
Acute on chronic respiratory failure
Acute COPD exacerbation-
- s/p IV steroids; now on oral steroids prednisone 40mg BID; will need prolonged taper until can be seen in Pulm office on 09/12 (previously scheduled appointment with Dr. Sorto)
- continue Duonebs prn/scheduled
- Budesonide BID
- completed 5 day Doxycycline course
- continue Mucinex, Acapella/IS to improve pulm toilet
- continue VEST therapy while inpatient
- Pulmonary following
- Patient is in need of oxygen at 2 liters/minute via nasal cannula continuously due to pulse oximetry of 85% on room air at rest. Oxygen will help to improve hypoxemia. Patient is mobile within the home. DuoNeb therapy has been tried and is
ineffective in treating hypoxemia related symptoms. Oxygen is needed to improve symptoms.
- O2 setup already per home CM.
possible Acute HFpEF
- BNP low but body habitus/BMI elevated
- CXR with pulm edema
- s/p IV Lasix course; now on Torsemide
- Echo: Normal LV size and function without wall motion abnormalities. LVEF is 55-60% by visual estimation. Dilated right ventricle with reduced systolic function. RV free wall appears hypo/akinetic with hyperdynamic apex; this is suspicious for
Escobar's sign. Mild aortic regurgitation. Mild to moderate tricuspid regurgitation. Normal estimated PASP at 37 mmHg. Compared to prior from January 14, 2025, RV is dilated with reduced systolic function and suspicious for Escobar sign.
Additionally, valvular interrogation quality was difficult on today's study.
- PE study negative
- Cardiology follow up outpatient
Hypokalemia - continue daily dosing
SONIA on Nocturnal O2
- continue in hospital BiPAP planned; also having CPAP delivered next week to home
Obesity
- recommend exercise and consideration of GLP-1 agents given SONIA (Zepbound)
HLD - statin
Anxiety/Depression
- Zoloft
Nosebleed in setting of O2
- continue humidification/nasal sprays
DVT ppx: Lovenox
Code: Full
Dispo: discussed possible dc today, but pulmonary would like to observe another 24 hours. Likely dc Monday.
Anticipated Discharge: Within 24 hours
Subjective/Interval History
-
Date of Service: August 12, 2025
feels improved, less congestion, no other complaints at present
home O2 is setup
Objective Data
-
Labs:
Laboratory Results
08/12/25
07:28
WBC 12.1 H
Hgb 11.9 L
Hct 37.3
Plt Count 369
Sodium 135
Potassium 4.1
Chloride 100
Carbon Dioxide 32 H
BUN 21 H
Creatinine 0.7
Glucose 112 H
Calcium 9.9
Vital Signs:
Vital Signs
Temp Pulse Resp BP Pulse Ox
97.8 F 81 18 137/70 95
08/12/25 08:31 08/12/25 08:31 08/12/25 08:31 08/12/25 08:31 08/12/25 10:40
I&O
08/11/25 08/12/25 08/13/25
06:59 06:59 06:59
Intake Total 480 / 480 1690 / 1690
Output Total 1900 / 1900 1000 / 1000
Balance -1420 / -1420 690 / 690
Physical Exam
-
General: No Apparent Distress
HEENT: Normocephalic and Atraumatic
Respiratory: Rhonchi; Negative Wheezes
Cardiac: Regular Rhythm and S1/S2
GI: Soft and Nontender
Musculoskeletal: No Edema
Neuro: AO x 3
Psych: Calm
Data Reviewed
-
Total Time Spent with Patient (in minutes): 42
Labs: Labs Reviewed by me
[2025-08-12] MEDS: TYLENOL 650 MG PO (11:55)
--- NOTE | 2025-08-12 15:47 | W.PN.PUL3 ---
Today's Communication / Plan
-
- Continue scheduled DuoNeb, budesonide and montelukast
- Continue twice daily prednisone for today, anticipate switching to once a day starting 08/13
Assessment
-
Patient is a pleasant 74 years old with a history of chronic hypoxic respiratory failure, COPD, home oxygen, hypertension, obesity, fibromyalgia who came to the ER with shortness of breath and lower extremity edema. She was seen multiple times in
the past in [facility] ER and instructed to take diuretics. She has a history of cough variant asthma, SONIA not on CPAP, chronic bronchitis and follows [facility] Dr Sorto, last seen on 08/01/25 in the office. She usually uses oxygen at night, yesterday she
noted that her oxygen dropped to 83- 86%, came to the ER today. BNP negative, troponin negative, chest x-ray showed mild to moderate acute interstitial and alveolar cardiogenic pulmonary edema, patient received steroid and breathing treatment in the
ER. We are consulted for evaluation.
Acute hypoxic respiratory failure due to Asthma/COPD exacerbation
Chronic compensated hypercapnia
Acute heart failure exacerbation
Bibasilar atelectasis likely contributing to hypoxemia
Moderate size hiatal hernia with adjacent subsegmental atelectasis, on PPI
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
Cough variant asthma
H/o noncompliance with inhaler regimen
CT with bibasilar linear atelectasis
History of frequent steroid use
RLD with chronic SOB-TLC has decreased by half a liter (multifactorial given BMI and large HH)
Morbid obesity with persistent weight gain and inactivity
Mixed simple and mucopurulent chronic bronchitis
Severe SONIA- AHI 91 with QUYEN of 81%, not yet on CPAP
Osteopenia
Lumbago with sciatica
Thoracic aorta atherosclerosis
Generalized anxiety disorder
Moderate aortic regurgitation
Gastro-esophageal reflux disease
Antineutrophil cytoplasmic antibody (ANCA) positive
Hiatal hernia, moderate to large size
Plan
Hypoxemia noted on arrival, she was placed on supplemental o2
Uses O2 at night at baseline, titrate to SpO2 > 89%
Prior history of lung disease is noted including cough variant asthma, chronic bronchitis, severe SONIA, RLD
Reviewed outpatient records wtih reduced TLC recently
This is likely multifactorial given her BMI, untreated apnea, large HH, sedentary lifestyle and possible mild subacute HF
CXR/CT obtained indicating congestion but this can be exacerbated on low lung volumes and in obese patients
Other imaging reviewed--CT in past largely negative but does show chronic large HH
Reviewed treatment including aggressive IS, rehab
Continue prednisone 40 mg twice daily, DuoNeb and Budesonide. Continue montelukast added 08/11. Anticipate lowering of steroids in a.m. if continues to improve
She does have a history of eosinophilia and has already been approved for Dupixent as an outpatient � advised to discuss this with Dr. Sorto in the office
She also follows with rheumatology although there has been low suspicion for vasculitis or lupus. Also, DAVID, [place]-3 and MPO antibodies are all negative
proBNP negative on admission
Now on torsemide; trend I/O and daily weight
Prior ECHO results are reviewed indicating normal function
Cards following, appreciate recs
SONIA history, not yet set up on CPAP, this was scheduled for next
Dr. Osullivan added BIPAP while inpatient, as her AHI is very severe - -> started 07/20 on 08/08/2025 which she tolerated; continue with BiPAP with sleep
Suspect concurrent OHS, VBG on afternoon of 08/08/2025 shows pCO2 56, and this is consistent with OHS
Chronic compensated hypercapnia.
Weight loss measures recommended
Obesity likely contributing to respiratory symptoms
Zepbound had been previously discussed with her as OP
Will need outpatient pulmonary evaluation in our office for PFTs and 6MWT
Reviewed with patient
Discussed with care team as well
We will follow
Diagnostic Data
CXR 08/07/25- 1. Mild to moderate acute interstitial and alveolar cardiogenic pulmonary edema.
2. Mild cardiomegaly.
3. Mild scarring in the lingula.
4. Moderate-sized paraesophageal hiatal hernia.
CT Chest 10/28/24- 1. Stable right lower lobe scarring. No pulmonary nodules, areas of airspace disease, pleural effusions, pericardial effusions or pathologically enlarged noncalcified lymph nodes in the thorax. No pneumothorax. Moderate to large
hiatal hernia, slightly progressed from 2018.
ECHO 01/14/25- Mildly dilated left ventricle (ИРИНА 5.5 cm). Left ventricular ejection fraction is 60-65%. Normal regional wall motion. Normal right ventricular size and function. Mild to moderate aortic regurgitation. Mild to moderate tricuspid
regurgitation. Estimated pulmonary artery pressure of 30-35 mmHg. No significant change in overall cardiac function since the prior study of 04/24/2023.
Reports and relevant images were personally reviewed.
Total time spent on this consultation __38__ minutes which includes review of history, physical exam, medications, laboratory data, personal review of imaging, extensive review of outpatient records, discussion with care team and respiratory therapy.
Subjective Data
-
Date of Service:
Date of Service: August 12, 2025
Chief Complaint: Pulmonary Follow Up
Subjective:
Patient comfortably sitting in bed in no acute distress.
Review of Systems
Genitourinary: Other (Patient reports gradually improving symptoms)
Objective Data
Data Reviewed
Vital Signs / I&O / Oxygen:
Vital Signs
Temp Pulse Resp BP Pulse Ox
98.5 F 81 20 124/67 96
08/12/25 11:00 08/12/25 15:05 08/12/25 15:05 08/12/25 11:00 08/12/25 15:05
Intake and Output
08/11/25 08/12/25 08/13/25
06:59 06:59 06:59
Intake Total 480 / 480 1690 / 1690
Output Total 1900 / 1900 1000 / 1000
Balance -1420 / -1420 690 / 690
SaO2 96
Nasal Cannula flow liters per 2.5
minute
Physical Exam
General: Respiratory Distress (negative), Comfortable and Chills (negative)
HEENT: Normocephalic, Anicteric and Other (thick neck)
Cardiovascular: S1-S2 and Peripheral Edema (negative)
Respiratory: Wheeze (Gradually improving wheezing, still goes into coughing spell with the deep breath), Non-Labored Respirations and Other (Coarse breath sounds heard bilaterally)
GI: Soft, Distended (Abdominal obesity), Non Tender and Normal Bowel Sounds
Neurology: Awake, Alert, Oriented and Tremors (negative)
Skin: Warm, Dry and Cyanosis (negative)
Labs/Micro/Reports
Lab Data
08/12/25 07:28
08/12/25 07:28
Microbiology
08/08/25 15:15 Sputum Respiratory Culture - Final
Usual Respiratory Jaky
08/08/25 15:15 Sputum Gram Stain - Final
[2025-08-12] MEDS: SINGULAIR 10 MG PO (17:34)
[2025-08-12] MEDS: LOVENOX 40 MG SC (17:34)
[2025-08-12] MEDS: LIPITOR 40 MG PO (20:12)
[2025-08-12] MEDS: VIBRAMYCIN PO (20:38)
[2025-08-13 03:18] VITALS: BP 138/69
[2025-08-13 03:23] VITALS: PULSE 2
[2025-08-13 06:00] VITALS: BMI 38.9
[2025-08-13 06:30] VITALS: BP 139/63
[2025-08-13] MEDS: PULMICORT 0.5 MG INH (07:23)
[2025-08-13] MEDS: DUONEB 3 ML INH ×2 (07:23→11:13)
[2025-08-13 07:42] LABS: Hematocrit 35.7 % (37.0-47.0); Hemoglobin 11.5 g/dL (12.0-16.0); Mean Corp Hgb Conc. 32.2 g/dL (33.0-37.0); Mean Corpuscular Volume 90.2 fL (81.0-99.0); Platelet Count 358 10^3/uL (130-400); Red Cell Dist. Width 12.1 % (11.5-14.5)
[2025-08-13 08:04] LABS: Blood Urea Nitrogen 24 mg/dl (7-17); Calcium 9.9 mg/dl (8.4-10.2); Carbon Dioxide 32 mmol/L (22-30); Chloride 99 mmol/L (98-107); Estimated Creatinine Clearance 68 ml/min; Glucose 123 mg/dl (70-99); Potassium 4.7 mmol/L (3.5-5.1); Sodium 139 mmol/L (135-145); eGFR > 60.00
--- NOTE | 2025-08-13 08:06 | W.PN.PUL3 ---
Today's Communication / Plan
-
- Resume Duoneb qid and Budesonide BID at discharge
- Prednisone 60 mg daily, decrease by 10 mg every 5 days until down to 10 mg daily, then stay at that dose until further instructions from Dr. Sorto as out patient
- Resume Montelukast at d/c
- Assess for need for Home O2
- Patient will start using CPAP, home set up for sleep apnea
- Can be discharged from pulmonary standpoint
- Pulmonary team will sign off, please call as needed
Assessment
-
Patient is a pleasant 74 years old with a history of chronic hypoxic respiratory failure, COPD, home oxygen, hypertension, obesity, fibromyalgia who came to the ER with shortness of breath and lower extremity edema. She was seen multiple times in
the past in [facility] ER and instructed to take diuretics. She has a history of cough variant asthma, SONIA not on CPAP, chronic bronchitis and follows [facility] Dr Sorto, last seen on 08/01/25 in the office. She usually uses oxygen at night, yesterday she
noted that her oxygen dropped to 83- 86%, came to the ER today. BNP negative, troponin negative, chest x-ray showed mild to moderate acute interstitial and alveolar cardiogenic pulmonary edema, patient received steroid and breathing treatment in the
ER. We are consulted for evaluation.
Acute hypoxic respiratory failure due to Asthma/COPD exacerbation
Chronic compensated hypercapnia
Acute heart failure exacerbation
Bibasilar atelectasis likely contributing to hypoxemia
Moderate size hiatal hernia with adjacent subsegmental atelectasis, on PPI
SONIA
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
Cough variant asthma
H/o noncompliance with inhaler regimen
CT with bibasilar linear atelectasis
History of frequent steroid use
RLD with chronic SOB-TLC has decreased by half a liter (multifactorial given BMI and large HH)
Morbid obesity with persistent weight gain and inactivity
Mixed simple and mucopurulent chronic bronchitis
Severe SONIA- AHI 91 with QUYEN of 81%, not yet on CPAP
Osteopenia
Lumbago with sciatica
Thoracic aorta atherosclerosis
Generalized anxiety disorder
Moderate aortic regurgitation
Gastro-esophageal reflux disease
Antineutrophil cytoplasmic antibody (ANCA) positive
Hiatal hernia, moderate to large size
Plan
Hypoxemia noted on arrival, she was placed on supplemental o2
Uses O2 at night at baseline, titrate to SpO2 > 89%
Prior history of lung disease is noted including cough variant asthma, chronic bronchitis, severe SONIA, RLD
Reviewed outpatient records wtih reduced TLC recently
This is likely multifactorial given her BMI, untreated apnea, large HH, sedentary lifestyle and possible mild subacute HF
CXR/CT obtained indicating congestion but this can be exacerbated on low lung volumes and in obese patients
Other imaging reviewed--CT in past largely negative but does show chronic large HH
Clinically improving, switch to prednisone 60 mg daily with plan for gradual taper and then follow-up with [facility] pulmonary clinic as outpatient.
She does have a history of eosinophilia and has already been approved for Dupixent as an outpatient � advised to discuss this with Dr. Sorto in the office
She also follows with rheumatology although there has been low suspicion for vasculitis or lupus. Also, DAVID, [place]-3 and MPO antibodies are all negative
proBNP negative on admission
Now on torsemide; trend I/O and daily weight
Prior ECHO results are reviewed indicating normal function
Cards following, appreciate recs
SONIA history, patient will resume CPAP once discharged at home. She has been set up for home CPAP.
Dr. Osullivan added BIPAP while inpatient, as her AHI is very severe - -> started 07/20 on 08/08/2025 which she tolerated; continue with BiPAP with sleep
Suspect concurrent OHS, VBG on afternoon of 08/08/2025 shows pCO2 56, and this is consistent with OHS
Chronic compensated hypercapnia.
Weight loss measures recommended
Obesity likely contributing to respiratory symptoms
Zepbound had been previously discussed with her as OP
Will need outpatient pulmonary evaluation in our office for PFTs and 6MWT
Reviewed with patient
Discussed with care team as well
Pulmonary team available as needed
Diagnostic Data
CXR 08/07/25- 1. Mild to moderate acute interstitial and alveolar cardiogenic pulmonary edema.
2. Mild cardiomegaly.
3. Mild scarring in the lingula.
4. Moderate-sized paraesophageal hiatal hernia.
CT Chest 10/28/24- 1. Stable right lower lobe scarring. No pulmonary nodules, areas of airspace disease, pleural effusions, pericardial effusions or pathologically enlarged noncalcified lymph nodes in the thorax. No pneumothorax. Moderate to large
hiatal hernia, slightly progressed from 2018.
ECHO 01/14/25- Mildly dilated left ventricle (ИРИНА 5.5 cm). Left ventricular ejection fraction is 60-65%. Normal regional wall motion. Normal right ventricular size and function. Mild to moderate aortic regurgitation. Mild to moderate tricuspid
regurgitation. Estimated pulmonary artery pressure of 30-35 mmHg. No significant change in overall cardiac function since the prior study of 04/24/2023.
Reports and relevant images were personally reviewed.
Total time spent on this consultation __38__ minutes which includes review of history, physical exam, medications, laboratory data, personal review of imaging, extensive review of outpatient records, discussion with care team and respiratory therapy.
Subjective Data
-
Date of Service:
Date of Service: August 13, 2025
Chief Complaint: Pulmonary Follow Up
Subjective:
Patient comfortably lying in bed in no acute distress. Slept better last night.
Review of Systems
Genitourinary: Other (All 14 systems reviewed and negative except as stated above in the history of present illness.)
Objective Data
Data Reviewed
Vital Signs / I&O / Oxygen:
Vital Signs
Temp Pulse Resp BP Pulse Ox
98 F 79 118 138/69 90
08/13/25 03:18 08/13/25 07:29 08/13/25 07:29 08/13/25 03:18 08/13/25 07:29
Intake and Output
10/08/13/25 08/14/25
06:59 06:59 06:59
Intake Total 1690 / 1690 1020 / 1020
Output Total 1000 / 1000 850 / 850
Balance 690 / 690 170 / 170
SaO2 90
Nasal Cannula flow liters per 2
minute
Physical Exam
General: Respiratory Distress (negative), Comfortable and Chills (negative)
HEENT: Normocephalic, Anicteric and Other (thick neck)
Cardiovascular: S1-S2 and Peripheral Edema (negative)
Respiratory: Wheeze (No wheezing this morning.), Non-Labored Respirations and Other (Coarse breath sounds heard bilaterally)
GI: Soft, Distended (Abdominal obesity), Non Tender and Normal Bowel Sounds
Neurology: Awake, Alert, Oriented and Tremors (negative)
Skin: Warm, Dry and Cyanosis (negative)
Labs/Micro/Reports
Lab Data
08/13/25 07:08
08/13/25 07:08
Microbiology
08/08/25 15:15 Sputum Respiratory Culture - Final
Usual Respiratory Jaky
08/08/25 15:15 Sputum Gram Stain - Final
[2025-08-13 08:17] VITALS: BP 139/63
[2025-08-13] MEDS: KCL 20 MEQ PO (08:20)
[2025-08-13] MEDS: MUCINEX 1200 MG PO (08:20)
[2025-08-13] MEDS: ZOLOFT 50 MG PO (08:20)
[2025-08-13] MEDS: DELTASONE 60 MG PO (08:20)
[2025-08-13] MEDS: PROTONIX 40 MG PO (08:20)
[2025-08-13] MEDS: DEMADEX 20 MG PO (08:21)
[2025-08-13] MEDS: DELTASONE PO (08:23)
--- NOTE | 2025-08-13 09:42 | W.PN.HOSP.TC ---
Today's Communication/Plan
-
Cleared by pulmonology for discharge today on slow steroid taper
Assessment / Plan
Assessment / Plan
Assessment:
Acute on chronic respiratory failure
Acute COPD exacerbation-
- Appreciate pulmonology input, much improved status post IV steroids, now on prednisone 60 mg p.o. daily
- Budesonide BID
- completed 5 day Doxycycline course
- continue Mucinex, Acapella/IS to improve pulm toilet
- continue VEST therapy while inpatient
- Pulmonary following
- 08/12/2025, patient ambulated on room air, and satted 96%. She does not need oxygen at rest or with activity
- She does have sleep apnea, home oxygen has been delivered, she can use it at night 2 L/min until her CPAP comes
- Cleared by pulmonology for discharge on a slow prednisone taper - Prednisone 60 mg daily, decrease by 10 mg every 5 days until down to 10 mg daily, then stay at that dose until further instructions from Dr. Sorto as outpatient
- Follow-up with pulmonology in the office
Possible Acute HFpEF
- BNP low but body habitus/BMI elevated
- CXR with pulm edema
- s/p IV Lasix course; now on Torsemide
- Echo: Normal LV size and function without wall motion abnormalities. LVEF is 55-60% by visual estimation. Dilated right ventricle with reduced systolic function. RV free wall appears hypo/akinetic with hyperdynamic apex; this is suspicious for
Escobar's sign. Mild aortic regurgitation. Mild to moderate tricuspid regurgitation. Normal estimated PASP at 37 mmHg. Compared to prior from January 14, 2025, RV is dilated with reduced systolic function and suspicious for Escobar sign.
Additionally, valvular interrogation quality was difficult on today's study.
- PE study negative
- Cardiology follow up outpatient
Hypokalemia - continue daily dosing
SONIA on Nocturnal O2
- continue in hospital BiPAP planned; also having CPAP delivered next week to home
Obesity
- recommend exercise and consideration of GLP-1 agents given SONIA (Zepbound)
HLD - statin
Anxiety/Depression
- Zoloft
Nosebleed in setting of O2
- continue humidification/nasal sprays
DVT ppx: Lovenox
Code: Full
Physical Exam
General: Obese, no acute distress
HEENT: Normocephalic, Atraumatic, EOMI, MMM
Respiratory: Diffuse wheezing noted
Cardiac: Normal S1/S2, Regular Rate and Rhythm
GI: Soft, Nontender, Nondistended, Normal Bowel Sounds
Extremities: No Clubbing, Cyanosis
Neuro: Nonfocal/Grossly Intact
Psych: Calm, Cooperative
Anticipated Discharge: Today
Subjective/Interval History
-
Date of Service: August 13, 2025
Patient complains of dyspnea with activity. Her cough and dyspnea with activity have improved since admission. Denies shortness of breath at rest. Denies chest pain, no fever, no vomiting.
Objective Data
-
Labs:
Laboratory Results
08/13/25
07:08
WBC 10.5
Hgb 11.5 L
Hct 35.7 L
Plt Count 358
Sodium 139
Potassium 4.7
Chloride 99
Carbon Dioxide 32 H
BUN 24 H
Creatinine 0.8
Glucose 123 H
Calcium 9.9
Vital Signs:
Vital Signs
Temp Pulse Resp BP Pulse Ox
98.2 F 88 18 171/78 93
08/13/25 11:23 08/13/25 11:23 08/13/25 11:23 08/13/25 11:23 08/13/25 11:23
I&O
08/12/25 08/13/25 08/14/25
06:59 06:59 06:59
Intake Total 1690 / 1690 1020 / 1020
Output Total 1000 / 1000 850 / 850
Balance 690 / 690 170 / 170
[2025-08-13 11:23] VITALS: BP 171/78
--- NOTE | 2025-08-13 11:43 | W.DCSUMMARY ---
Discharge Summary
Discharge Data
Date of Admission: 08/07/25
Date of Discharge: 08/13/25
-
Pending Results: No
Hospital Course
Discharge diagnosis:
Acute on chronic hypoxic respiratory failure
Acute chronic obstructive pulmonary disease exacerbation
Possible acute heart failure with a preserved ejection fraction
Obstructive sleep apnea
Hypokalemia
Obesity due to excess calories
Epistaxis
Consults: Pulmonology, cardiology
CT Chest:
FINDINGS: The central pulmonary arteries are well-opacified and demonstrate no filling defects to suggest pulmonary embolism. There is mild dilatation of the proximal ascending thoracic aorta at 4.1 cm, thoracic aorta homogeneous in appearance.
There are small bilateral lower lobe consolidations with air bronchograms, right slightly larger than left. There is no pneumothorax, significant pleural effusion or findings to suggest pericardial effusion. There is no significant hilar,
mediastinal or axillary lymphadenopathy. The heart is possibly mildly enlarged and there are coronary artery calcifications and/or stents.
Moderate size hiatal hernia is noted including some intra-abdominal fat.
Degenerative changes are seen within the thoracic spine.
Hospital course:
74-year-old female with a past medical history of chronic hypoxic respiratory failure, COPD, home oxygen, hypertension, obesity, fibromyalgia, and CHF who was admitted for acute on chronic hypoxic respiratory failure secondary to acute COPD
exacerbation and possible CHF exacerbation. Patient was seen in conjunction with pulmonology. She was treated with IV steroids and bronchodilators. She was also seen in conjunction with cardiology. She was diuresed with IV Lasix. Cardiology
transitioned her to her home diuretic dose of torsemide 20 mg p.o. daily.
Pulmonology transitioned the patient to prednisone 60 mg p.o. daily. Pulmonology has cleared the patient for discharge on a slow prednisone taper, decrease by 10 mg every 5 days, then take 10 mg daily until seen by her usual outpatient
corn chip maker, Dr. Sorto.
Patient required as much as 2.5 L while in the hospital. She was successfully weaned to room air on the day of discharge. Home oxygen prescription evaluation was performed, she does not need any oxygen at rest or with activity. Patient does have
obstructive sleep apnea, and uses oxygen at night. She will have a CPAP delivered to her home next week.
Patient is medically stable and cleared by pulmonology for discharge. She needs to follow-up with her PCP in 1 week, pulmonology in 1-2 weeks, and her usual ordnance technician in the office in 2-3 weeks.
Disposition: Home self-care
Discharge planning: Required 39 minutes
Discharge Plan
-
Patient Disposition: Home (Routine Discharge)
Discharge Diagnosis/Procedures: Acute COPD exacerbation, hypoxia, CHF exacerbation, obstructive sleep apnea
Condition: Good
Diet: 2 Gram Sodium
Activity: As tolerated
Driving Restrictions: As prior to admission
Activity Restrictions/Additional Instructions:
Take prednisone 60 mg daily, decrease by 10 mg every 5 days until down to 10 mg daily, then stay at that dose until further instructions from Dr. Sorto as outpatient
Follow-up with your PCP in 1 week, pulmonology in 1-2 weeks, and your usual ordnance technician in 2-3 weeks.
Referrals:
Yvette Sorto MD [Active, Pulmonary Medicine] - in one to two weeks
Referral Note: Arrange with PRICING INTERN; otherwise see if Dr. Sorto can move her appt up from 09/12/2025 (330PM) to a sooner appt closer to discharge date.
Bora Reian CRNP [Family Provider] - in one week
Prescriptions:
New
guaifenesin 600 mg Tablet Extended Release 12hr
1,200 mg PO Q12 7 Days Qty: 28 0RF
prednisone 10 mg Tablet
See Rx Instructions .ROUTE .COMPLEX Qty: 100 0RF
Rx Instructions:
60 mg daily x5 days, 50 mg daily x5 days,
40 mg daily x5 days, 30 mg daily x5 days,
20 mg daily x5 days, 10 mg daily until seen by pulm
Continued
cholecalciferol (vitamin D3) [Vitamin D3] 400 UNITS tablet
1,000 units PO DAILY
pantoprazole 40 mg Tablet,Delayed Release (Dr/Ec)
40 mg PO BID
montelukast 10 mg Tablet
10 mg PO QPM
sertraline 50 mg Tablet
50 mg PO DAILY
albuterol sulfate 1.25 mg/3 mL Solution For Nebulization
1.25 mg INHALATION R TIDPRN PRN (Reason: sob)
therapeutic multivitamin Tablet
1 tab PO DAILY
albuterol sulfate [ProAir HFA] 90 mcg/actuation Hfa Aerosol Inhaler
2 puff INHALATION R Q6HPRN PRN (Reason: sob)
budesonide 0.5 mg/2 mL Suspension For Nebulization
0.5 mg INHALATION BID
calcium 600 mg Capsule
600 mg PO DAILY
ipratropium-albuterol 0.5 mg-3 mg(2.5 mg base)/3 mL Solution For Nebulization
3 ml INHALATION Q4H PRN (Reason: sob)
atorvastatin [Lipitor] 40 mg tablet
40 mg PO HS Qty: 30 5RF
celecoxib [Celebrex] 200 mg Capsule
200 mg PO DAILYPRN
torsemide 20 mg Tablet
20 mg PO DAILY
magnesium oxide 250 mg magnesium Tablet
250 mg PO DAILY
Discontinued
prednisone 10 mg tablet
10 mg PO MOWEFR
Rx Instructions:
Take By Mouth:
50 mg daily x3 days, 40 mg daily x3 days,
30 mg daily x3 days, 20 mg daily x3 days,
10 mg daily x3 days
Discharge Orders:
Discharge Patient (As Directed); Ordered 08/13/25
Ordered By: Yaya Sampson
Discharge Date and Time
Discharge Date/Time: 08/13/25 14:11
Print Language: MARSHALLESE
[2025-08-13 14:00] VITALS: BP 140/93
--- NOTE | 2025-08-13 18:27 | CM ---
Pt discharged home. Son will transport pt home.
== END 2025-08-13 14:11 | disposition home or self-care (01) | DRG 291 ==
LOC: 4 EAST ACU 19:00
PROVIDERS: Internal Medicine; Physician Assistant; ADMITTING PHYSICIAN General Practice; ATTENDING PHYSICIAN Family Medicine; CONSULT PHYSICIAN Internal Medicine Cardiovascular Disease; EMERGENCY PHYSICIAN Emergency Medicine; OTHER PHYSICIAN Internal Medicine
PROC: 5A09357 Assistance with Respiratory Ventilation, Less than 24 Consecutive Hours, Continuous Positive Airway Pressure (ICD-10-PCS; 2025-08-08)
DX: I11.0 Hypertensive heart disease with heart failure (principal); I50.33 Acute on chronic diastolic (congestive) heart failure; J96.21 Acute and chronic respiratory failure with hypoxia; J44.1 Chronic obstructive pulmonary disease with (acute) exacerbation; E87.1 Hypo-osmolality and hyponatremia; J98.11 Atelectasis; E78.5 Hyperlipidemia, unspecified; E87.6 Hypokalemia; E66.01 Morbid (severe) obesity due to excess calories; F32.A Depression, unspecified; F41.1 Generalized anxiety disorder; G47.33 Obstructive sleep apnea (adult) (pediatric); I35.1 Nonrheumatic aortic (valve) insufficiency; J41.8 Mixed simple and mucopurulent chronic bronchitis; J45.991 Cough variant asthma; K21.9 Gastro-esophageal reflux disease without esophagitis; M54.40 Lumbago with sciatica, unspecified side; M79.7 Fibromyalgia; R04.0 Epistaxis; M85.80 Other specified disorders of bone density and structure, unspecified site; Z77.22 Contact with and (suspected) exposure to environmental tobacco smoke (acute) (chronic); Z11.52 Encounter for screening for COVID-19; Z68.38 Body mass index [BMI] 38.0-38.9, adult; Z79.51 Long term (current) use of inhaled steroids; Z79.899 Other long term (current) drug therapy; Z91.148 Patient's other noncompliance with medication regimen for other reason
CPT/HCPCS: 71045; 71275; 80048; 81003; 81015; 82805; 83880; 84484; 85025; 85027; 85379; 87070; 87205; 87502; 87811; 93005; 93306; 94640; 94644; 94660; 94669; 96374; 96375; 99285; Q9967

== ENCOUNTER 2025-09-23 09:00 | Outpatient (RCR) | payer OTHER, SELFPAY | END 2025-09-23 23:59 | disposition home or self-care (01) | LOC: PURB 09:00 | PROVIDERS: ATTENDING PHYSICIAN Internal Medicine Critical Care Medicine | DX: J84.9 Interstitial pulmonary disease, unspecified (principal) | CPT/HCPCS: G0237 ==